=== PATIENT | male | born 1940 | race Caucasian/White ===

== ENCOUNTER 2020-06-02 09:27 | Outpatient (REF) | payer MEDICARE, SELFPAY ==
[2020-06-02 11:28] LABS: Glucose Urine UA NEG (NEG); Leukocyte Esterase Urine NEG (NEG); Nitrite Urine NEG (NEG); Urine Blood 3+ (NEG); Urine Ketones NEG (NEG); Urine Protein 1+ MG/DL (NEG-TRACE)
[2020-06-02 11:37] LABS: Appearance Urine CLEAR; Color Urine YELLOW
[2020-06-02 11:50] LABS: RBC Urine 30-49 /HPF (0); Squamous Epithelial Cell Urine TRACE /LPF
== END 2020-06-02 09:28 | disposition home or self-care (01) ==
LOC: HO.HMGCLDS 09:27
PROVIDERS: PCP Internal Medicine; Visit Provider Urology
DX: N28.89 Other specified disorders of kidney and ureter (principal)
CPT/HCPCS: 81001; 87086; 87088

== ENCOUNTER → 2020-06-28 12:53 | Outpatient (BNVA) | payer MEDICARE, SELFPAY | PROVIDERS: PCP Internal Medicine; Visit Provider Hospitalist | DX: Z01.811 Encounter for preprocedural respiratory examination (principal); J43.2 Centrilobular emphysema; R00.0 Tachycardia, unspecified; Z79.899 Other long term (current) drug therapy | CPT/HCPCS: 93005; 99212 ==

== ENCOUNTER → 2020-09-06 09:49 | Outpatient (BNVA) | payer MEDICARE, SELFPAY | PROVIDERS: PCP Internal Medicine; Visit Provider Hospitalist | DX: J43.2 Centrilobular emphysema (principal); J18.9 Pneumonia, unspecified organism; I82.401 Acute embolism and thrombosis of unspecified deep veins of right lower extremity | CPT/HCPCS: 99212 ==

== ENCOUNTER 2020-12-24 08:37 | Outpatient (REF) | payer MEDICARE, SELFPAY ==
--- NOTE | ~2020-12-24 | XR_ITS ---
EXAMINATION: XR CHEST CLINICAL INFORMATION: Pneumonia COMPARISON: Previous chest x-ray October 2019 TECHNIQUE: 2 views of the chest were obtained. FINDINGS: The cardiac and mediastinal contours are stable. The lungs are well-inflated. There is left apical pleural and parenchymal scarring that is stable. The lungs are otherwise clear. There is no pleural effusion or pneumothorax. There are degenerative changes of the spine. XR/XR chest 2V IMPRESSION: Well-inflated lungs. Stable left apical pleural and parenchymal scarring.
== END 2020-12-24 08:38 | disposition home or self-care (01) ==
LOC: HO.XRAY 08:37
PROVIDERS: PCP Internal Medicine; Visit Provider Hospitalist
DX: J18.9 Pneumonia, unspecified organism (principal); J43.2 Centrilobular emphysema; I82.401 Acute embolism and thrombosis of unspecified deep veins of right lower extremity; R91.8 Other nonspecific abnormal finding of lung field
CPT/HCPCS: 71046; 99212

== ENCOUNTER 2021-03-16 07:29 | Outpatient (REF) | payer MEDICARE, SELFPAY ==
--- NOTE | ~2021-03-16 | CT_ITS ---
EXAMINATION: CT CHEST WITHOUT CONTRAST CLINICAL INFORMATION: Abnormal lung findings. COMPARISON: Chest 12/24/2020 TECHNIQUE: Multidetector volumetric CT imaging of the chest was done. Axial MIP volume rendering provided. Sagittal and coronal reformatted images were obtained. This CT examination was performed using dose optimization techniques as appropriate, variously including the following: *Automated exposure control *Adjustment of mA and/or kV according to patient size (this includes techniques or standardized protocols for targeted exams where dose is matched to indication/reason for exam; i.e. 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 LUNGS: There are centrilobular emphysematous changes of both lungs with bilateral apical parenchymal scarring and bilateral apical pleural thickening. There are multiple scattered 1 mm calcified nodules in both upper lobes. There is a 7 mm nodule right minor fissure axial image 31/3. Focal nodular thickening is seen measuring 6 mm in the left major fissure. There is a 3 mm nodule left lung base axial image 60/4 and 5 mm nodule anterobasal segment left lower lobe axial image 52/4. MEDIASTINUM: The thyroid lobes are symmetrical and normal. The central trachea and the bronchi are widely patent. The heart size and great vessels are normal caliber. There is a 6 mm short axis nodule in the precarinal space. A few shotty lymph nodes in the aortic window are seen with the largest one measuring 1.2 cm on sagittal image 53/6. There are coronary artery calcifications present. PLEURA: There is no pleural effusion. No pleural mass or thickening. AXILLA: There are small shotty bilateral axillary lymph nodes. UPPER ABDOMEN: The visualized liver, spleen, pancreas, and bilateral adrenal glands are unremarkable. Partially exophytic cyst measuring 7.67 cm seen in the upper pole of left kidney. OSSEOUS STRUCTURES: No lytic or sclerotic process seen. There is mild ventral spondylosis mid dorsal spine. CT/CT chest wo con IMPRESSION: Emphysema with bilateral apical parenchymal scarring and bilateral apical pleural thickening. There are scattered calcified 1 mm nodules, likely granulomas. There are small pulmonary nodules in the left lower lobe with the largest nodule measuring 5 mm. Fleischner guidelines were followed.
== END 2021-03-16 07:30 | disposition home or self-care (01) ==
LOC: HO.CT 07:29
PROVIDERS: PCP Internal Medicine; Visit Provider Hospitalist
DX: R91.8 Other nonspecific abnormal finding of lung field (principal)
CPT/HCPCS: 71250

== ENCOUNTER → 2021-04-27 08:37 | Outpatient (BNVA) | payer MEDICARE, SELFPAY | PROVIDERS: PCP Internal Medicine; Visit Provider Hospitalist | DX: R91.8 Other nonspecific abnormal finding of lung field (principal); J43.2 Centrilobular emphysema; I82.401 Acute embolism and thrombosis of unspecified deep veins of right lower extremity | CPT/HCPCS: 99212 ==

== ENCOUNTER 2022-02-16 09:40 | Outpatient (REF) | payer MEDICARE, SELFPAY ==
--- NOTE | ~2022-02-16 | CT_ITS ---
EXAMINATION: CT CHEST WITHOUT CONTRAST CLINICAL INFORMATION: Follow-up pulmonary nodules COMPARISON: Previous chest CT March 2021 TECHNIQUE: Multidetector volumetric CT imaging of the chest was done. Axial MIP volume rendering provided. Sagittal and coronal reformatted images were obtained. This CT examination was performed using dose optimization techniques as appropriate, variously including the following: *Automated exposure control *Adjustment of mA and/or kV according to patient size (this includes techniques or standardized protocols for targeted exams where dose is matched to indication/reason for exam; i.e. 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 There is evidence of severe emphysema. There are multiple small pulmonary nodules are stable. Largest pulmonary nodule measures 4 mm in the left lower lobe axial image 63 series 7 no endobronchial or endotracheal lesion. MEDIASTINUM: Normal heart size. Severe coronary artery calcification. Heavily calcified but normal caliber thoracic aorta. Shotty stable mediastinal lymphadenopathy. CORONARY ARTERY CALCIFICATION: Severe PLEURA: No pleural effusion. AXILLA: Bilateral gynecomastia, right greater than left. This is similar to previous exam. No enlarged axillary lymph nodes. UPPER ABDOMEN: The right kidney has been removed. 2 cm cyst in the left kidney. No imaging follow-up. Atherosclerotic abdominal aorta. OSSEOUS STRUCTURES: Degenerative changes of the spine. Old healed left rib fracture. CT/CT chest wo IV con IMPRESSION: Severe emphysema. Stable small pulmonary nodules and biapical pleural and parenchymal scarring and calcification.. Severe coronary artery calcification. Fleischner guidelines were followed.
== END 2022-02-16 09:41 | disposition home or self-care (01) ==
LOC: HO.CT 09:40
PROVIDERS: Visit Provider Hospitalist
DX: R91.8 Other nonspecific abnormal finding of lung field (principal)
CPT/HCPCS: 71250

== ENCOUNTER 2022-03-03 11:34 | Emergency (ER) | payer MEDICARE, SELFPAY ==
--- NOTE | ~2022-03-03 | CT_ITS ---
EXAMINATION: CT HEAD WITHOUT CONTRAST CLINICAL INFORMATION: Head injury. Pain COMPARISON: None TECHNIQUE: Contiguous axial imaging was performed from the skull base to vertex without intravenous administration of contrast. This CT examination was performed using dose optimization techniques as appropriate, variously including the following: *Automated exposure control *Adjustment of mA and/or kV according to patient size (this includes techniques or standardized protocols for targeted exams where dose is matched to indication/reason for exam; i.e. extremities or head) *Use of iterative reconstruction technique DLP: 640 mGy-cm FINDINGS: Prominence of sulci and ventricles. Deep white matter gliosis all compatible with involutional change. No intra or extra-axial fluid collection or hemorrhage, mass or mass effect. Calvarium intact. There is mild mucoperiosteal thickening within the ethmoid sinuses. CT/CT head/brain wo IV con IMPRESSION: No acute intracranial pathology.
--- NOTE | 2022-03-03 11:43 | ED_ITS ---
HPI - General Adult General Chief complaint: Wound/Laceration <CATARINO Salvador - Last Filed: 03/03/22 18:25> Stated complaint: Lac Above R Eye Injury 03/03/22 <CATARINO Salvador - Last Filed: 03/03/22 18:25> Time Seen by Provider: 03/03/22 11:57 <CATARINO Salvador - Last Filed: 03/03/22 18:25> Source: patient <CATARINO Salvador - Last Filed: 03/03/22 18:25> Mode of arrival: ambulatory <CATARINO Salvador - Last Filed: 03/03/22 18:25> Limitations: no limitations <CATARINO Salvador - Last Filed: 03/03/22 18:25> History of Present Illness HPI narrative: 81-year-old male presenting to the ER with complaints of a laceration to the right eyebrow that occurred prior to arrival after he was hunting prior to arrival. He reports that he fired his gone and the scope hit him above his eye causing a laceration. He denies a fall to the ground or any other injuries complaints or concerns. Reports that his tetanus was updated year ago when he sustained another laceration on a hunting accident. He denies any other symptoms complaints or concerns at this time. <CATARINO Woods - Last Filed: 03/03/22 14:22> MD complaint: Laceration to right eyebrow <CATARINO Woods - Last Filed: 03/03/22 14:22> Onset (ago): minute(s) (Prior to arrival) <CATARINO Woods - Last Filed: 03/03/22 1 4:22> Location: face <CATARINO Woods - Last Filed: 03/03/22 14:22> Radiation: non-radiation <CATARINO Woods - Last Filed: 03/03/22 14:22> Severity: moderate <CATARINO Woods Last Filed: 03/03/22 14:22> Quality: aching <CATARINO Woods - Last Filed: 03/03/22 14:22> Pain Consistency: constant <CATARINO Woods Last Filed: 03/03/22 14:22> Relieving factors: none <CATARINO Woods - Last Filed: 03/03/22 14:22> Exacerbating factors: other (Palpation) <CATARINO Woods - Last Filed: 03/03/22 14:22> Associated symptoms: denies other symptoms <CATARINO Woods - Last Filed: 03/03/22 14:22> Treatments prior to arrival: other (Band-Aid) <CATARINO Woods - Last Filed: 03/03/22 14:22> Related Data Home medications: Home Medications Medication Instructions Recorded Confirmed albuterol sulfate 90 mcg/actuation 2 puff inhalation Q6H PRN 06/28/20 09/06/20 aerosol inhaler (ProAir HFA) simvastatin 40 mg tablet 40 mg PO BEDTIME 06/28/20 09/06/20 vitamin B complex (B 1 tab PO DAILY 06/28/20 09/06/20 Complex-Vitamin B12 tablet) budesonide 0.25 mg/2 mL suspension 0.25 mg inhalation BID 09/06/20 09/06/20 for nebulization cilostazol 100 mg tablet 100 mg PO BID 09/06/20 09/06/20 coenzyme Q10 100 mg capsule 100 mg PO DAILY 09/06/20 09/06/20 ipratropium 0.5 mg-albuterol 3 mg 3 ml inhalation Q6H PRN 09/06/20 09/06/20 (2.5 mg base)/3 mL nebulization soln milk thistle 150 mg capsule 150 mg PO BID 09/06/20 09/06/20 multivitamin 1 tab PO DAILY 09/06/20 09/06/20 omega-3 fatty acids 1,000 mg 1,000 mg PO DAILY 09/06/20 09/06/20 capsule (Fish Oil Concentrate) loratadine 10 mg tablet (Allergy 10 mg PO DAILY 04/27/21 Relief (loratadine)) Previous Rx's Medication Instructions Recorded tiotropium 2.5 mcg-olodaterol 2.5 2 puff inhalation DAILY 30 days #4 09/06/20 mcg/actuation mist for inhalation grams (Stiolto Respimat) cephalexin 500 mg capsule 500 mg PO BID 7 days #14 caps 03/03/22 <CATARINO Salvador - Last Filed: 03/03/22 18:25> Allergies/adverse reactions: Allergies Allergy/AdvReac Type Severity Reaction Status Date / Time No Known Allergies Allergy Verified 04/27/21 09:17 [No Known Allergies*] <CATARINO Salvador - Last Filed: 03/03/22 18:25> Review of Systems Review of Systems: Constitutional : No Fever, No Chills, Cardiovascular : No Chest Pain, No SOB Respiratory : No Dyspnea Gastrointestinal : No abdominal pain Musculoskeletal : No Joint Swelling Skin : positive skin laceration, No Foreign bodies, No rash, No surrounding erythema Neuro : No Weakness, No Numbness/tingling Psych : No SI/HI/thoughts of self injury <CATARINO Woods - Last Filed: 03/03/22 14:22> Yes all other systems are reviewed and are negative <CATARINO Woods - Last Filed: 03/03/22 14:22> [facility] Past Medical History Attestation statement: The following information was validated with the patient. <CATARINO Woods - Last Filed: 03/03/22 14:22> Source: old records reviewed and nursing notes reviewed <CATARINO Woods - Last Filed: 03/03/22 14:22> Medical History: Medical History COPD (chronic obstructive pulmonary disease) DVT (deep venous thrombosis) Pneumonia Pre-op chest exam Pulmonary nodules <CATARINO Salvador - Last Filed: 03/03/22 18:25> Social History Social History: Social History Patient Tobacco Use Status: Current everyday Tobacco user Tobacco use type: Cigarette Cigarette Packs Per Day: 1 Cigarettes Per Day: 3 Years Smoked: 22 years old Advance Directives: Yes Advance Directives Information Provided: Yes Advance Directives on File: No <CATARINO Salvador - Last Filed: 03/03/22 18:25> Physical Exam ED Vital Signs: Vital Signs - 24 hr 03/03/22 11:44 Temperature 97.9 F Pulse Rate 101 H Respiratory Rate 18 Blood Pressure 149/94 H Pulse Oximetry 97 Oxygen Delivery Method Room Air BMI result Body Mass Index 19.5 <CATARINO Salvador - Last Filed: 03/03/22 18:25> Vital Signs - 24 hr 03/03/22 11:44 Temperature 97.9 F Pulse Rate 101 H Respiratory Rate 18 Blood Pressure 149/94 H Pulse Oximetry 97 Oxygen Delivery Method Room Air BMI result Body Mass Index 19.5 vital signs have been reviewed as normal and appeared to be correct. Blood pressure 149/94 Heart rate 101 Respiration rate normal. Temperature normal. Oxygen saturation normal. <CATARINO Woods - Last Filed: 03/03/22 14:22> Appearance: Alert. Oriented X3. No acute distress. Head: Normal external exam. Normocephalic. Atraumatic. No Campbell signs noted. No raccoon eyes noted Eyes: To right eyebrow patient has a 2 cm intermediate laceration. No foreign bodies. No bony tenderness noted. No facial or scalp depressions noted. No Campbell signs or raccoon eyes noted. PERRLA. EOMI. Conjunctiva and sclera normal. Eyelids normal. ENT: EAC normal. TM's Normal. No septal hematoma noted. No hemotympanum noted. Pharynx normal. Uvula midline. Moist mucous membranes. No lesions/ulcerations or masses noted on the tongue. Normal voice. No trismus noted. No drooling noted. No muffled voice noted. Neck: Normal inspection. Neck supple. FROM. No adenopathy. Thyroid Normal. No tracheal deviation noted. No crepitus is noted. No meningeal signs. No neck mass noted. No signs of trauma noted. CVS: Normal heart rate and rhythm. Respiratory: No respiratory distress. Painless inspiration. Back: No CVA tenderness. Full range of motion noted. Nontender. No signs of trauma. Skin: Skin warm and dry. Normal skin color. Normal skin turgor. No rashes/lesions/lacerations noted. Extremities: Extremities exhibit normal range of motion and nontender. Neuro: Oriented X 3. No motor deficit. No sensory deficit. Reflexes normal. Normal steady gait. No focal neuro deficits noted. CN's II-XII intact bilaterally? <CATARINO Woods - Last Filed: 03/03/22 14:22> Course Course Course Narrative: RME performed by Mona Conrad PA-C. Patient is an 81 year old male presenting to the department after a hunting accident. Patient states that he fired his gun and the scope hit him above his eye, causing a laceration. Patient has a laceration above the right eyebrow that will need suture repair. CT ordered given patients age >65 and traumatic head injury. Patient placed back in waiting room pending results and bed availability. Patient is up to date on his tetanus vaccination. <CATARINO Salvador - Last Filed: 03/03/22 18:25> Reevaluation(s) Reevaluation #1: Patient now status post laceration repair with 8 simple interrupted sutures. Patient tolerated procedure well. No complications. Tetanus is already updated therefore does not need to be given today. CT scan of brain without contrast revealed chronic changes no acute processes noted. On exam patient is alert and oriented x3. No neuro deficits noted. Moving all extremities. Normal steady gait. Neck is soft nontender with full range of motion no meningeal sign noted. No septal hematoma noted. No hemotympanum noted. No raccoon eyes or Campbell sign noted at this time. Will DC home with symptomatic treatment instructions return to 5-7 days for suture removal and to return any sooner if any new or worsening symptoms. Patient understands agrees with this plan. <CATARINO Woods - Last Filed: 03/03/22 14:22> Medications Administered Discontinued Medications Generic Name Dose Route Start Last Admin Trade Name Freq PRN Reason Stop Dose Admin Lidocaine HCl 1 appl 03/03/22 12:12 03/03/22 12:23 Lidocaine 4 % Cream Kit TOPICAL 03/03/22 12:13 1 appl ONCE ONE Administration Protocol Lidocaine HCl 2 ml 03/03/22 12:12 03/03/22 12:23 Lidocaine Hcl 1 % Mpf 2 Ml Vial INFILTRATI 03/03/22 12:13 2 ml ONCE ONE Administration Lidocaine HCl 2 ml 03/03/22 12:12 03/03/22 12:23 Lidocaine Hcl 1 % Mpf 2 Ml Vial INFILTRATI 03/03/22 12:13 2 ml ONCE ONE Administration Lidocaine HCl 2 ml 03/03/22 12:13 03/03/22 12:23 Lidocaine Hcl 1 % Mpf 2 Ml Vial INFILTRATI 03/03/22 12:14 2 ml ONCE ONE Administration <CATARINO Salvador - Last Filed: 03/03/22 18:25> Medications Administered Discontinued Medications Generic Name Dose Route Start Last Admin Trade Name Freq PRN Reason Stop Dose Admin Lidocaine HCl 1 appl 03/03/22 12:12 03/03/22 12:23 Lidocaine 4 % Cream Kit TOPICAL 03/03/22 12:13 1 appl ONCE ONE Administration Protocol Lidocaine HCl 2 ml 03/03/22 12:12 03/03/22 12:23 Lidocaine Hcl 1 % Mpf 2 Ml Vial INFILTRATI 03/03/22 12:13 2 ml ONCE ONE Administration Lidocaine HCl 2 ml 03/03/22 12:12 03/03/22 12:23 Lidocaine Hcl 1 % Mpf 2 Ml Vial INFILTRATI 03/03/22 12:13 2 ml ONCE ONE Administration Lidocaine HCl 2 ml 03/03/22 12:13 03/03/22 12:23 Lidocaine Hcl 1 % Mpf 2 Ml Vial INFILTRATI 03/03/22 12:14 2 ml ONCE ONE Administration <CATARINO Woods - Last Filed: 03/03/22 14:22> Procedures Laceration Laceration 1: Site: face <CATARINO Woods - Last Filed: 03/03/22 14:22> Side (If applicable): right <CATARINO Woods - Last Filed: 03/03/22 14:22> Size (cm): 4 <CATARINO Woods - Last Filed: 03/03/22 14:22> Description: linear <CATARINO Woods - Last Filed: 03/03/22 14:22> Depth: simple, single layer <CATARINO Woods - Last Filed: 03/03/22 14:22> Local Anesthetic: lidocaine 1% <CATARINO Woods - Last Filed: 03/03/22 14:22> Amount of anesthesia used (mL): 6 <CATARINO Woods - Last Filed: 03/03/22 14:22> Pre-repair: deep structures intact <CATARINO Woods - Last Filed: 03/03/22 14:22> Skin layer closed with: nylon <CATARINO Woods - Last Filed: 03/03/22 14:22> Size (cm): 6-0 <CATARINO Woods - Last Filed: 03/03/22 14:22> Number of sutures: 8 <CATARINO Woods - Last Filed: 03/03/22 14:22> Technique: simple, interrupted <CATARINO Woods - Last Filed: 03/03/22 14:22> Medical Decision Making Medical Records Medical records reviewed: Yes I reviewed the patient's medical records. <CATARINO Woods - Last Filed: 03/03/22 14:22> Imaging Data CT scan of brain without contrast: Attestation: I personally reviewed and interpreted this imaging study as follows: <CATARINO Woods - Last Filed: 03/03/22 14:22> Radiologist's impression: FINDINGS: Prominence of sulci and ventricles. Deep white matter gliosis all compatible with involutional change. No intra or extra-axial fluid collection or hemorrhage, mass or mass effect. Calvarium intact. There is mild mucoperiosteal thickening within the ethmoid sinuses. ? CT/CT head/brain wo IV con IMPRESSION: No acute intracranial pathology. <CATARINO Woods - Last Filed: 03/03/22 14:22> Discharge Plan Discharge Clinical Impression: Laceration <CATARINO Salvador - Last Filed: 03/03/22 18:25> Patient Disposition: Home, Self-Care <CATARINO Salvador - Last Filed: 03/03/22 18:25> Instructions: Facial Laceration (ED) <CATARINO Salvador - Last Filed: 03/03/22 18:25> Prescriptions: New cephalexin 500 mg capsule 500 mg PO BID 7 Days Qty: 14 0RF No Action simvastatin 40 mg tablet 40 mg PO BEDTIME vitamin B complex [B Complex-Vitamin B12] Tablet 1 tab PO DAILY albuterol sulfate [ProAir HFA] 90 mcg/actuation HFA aerosol inhaler 2 puff inhalation Q6H PRN budesonide 0.25 mg/2 mL suspension for nebulization 0.25 mg inhalation BID ipratropium-albuterol 0.5 mg-3 mg(2.5 mg base)/3 mL solution for nebulization 3 ml inhalation Q6H PRN multivitamin Tablet 1 tab PO DAILY cilostazol 100 mg tablet 100 mg PO BID coenzyme Q10 100 mg capsule 100 mg PO DAILY omega-3 fatty acids [Fish Oil Concentrate] 1,000 mg capsule 1,000 mg PO DAILY milk thistle 150 mg capsule 150 mg PO BID Rx Instructions: give with meal/snack Stiolto Respimat 2.5-2.5 mcg/actuation mist 2 puff inhalation DAILY 30 Days Qty: 4 11RF loratadine [Allergy Relief (loratadine)] 10 mg tablet 10 mg PO DAILY <CATARINO Salvador - Last Filed: 03/03/22 18:25> Referrals: Yajaira Ventura PA [Emergency Midlevel Provider] - 10 days (for suture removal) <CATARINO Salvador - Last Filed: 03/03/22 18:25> Interventions: ED Discharge Assessment Last Done: 03/03/22 13:43 <CATARINO Salvador - Last Filed: 03/03/22 18:25> Discharge Date/Time: 03/03/22 13:43 <CATARINO Salvador - Last Filed: 03/03/22 18:25>
[2022-03-03 11:44] VITALS: BP 149/94; PULSE 101; RESP 18; TEMP 36.6; O2SAT 97; BMI 19.5
[2022-03-03] MEDS: Lidocaine 4 % Cream KIT 1 APPL TOPICAL (12:23)
[2022-03-03] MEDS: Lidocaine HCl 1 % MPF 2 ML VIAL INFILTRATI ×3 (12:23)
== END 2022-03-03 13:43 | disposition home or self-care (01) ==
PROVIDERS: Emergency Provider Student in an Organized Health Care Education/Training Program; PCP Internal Medicine
DX: S01.111A Laceration without foreign body of right eyelid and periocular area, initial encounter (principal); R51.9 Headache, unspecified; Y29.XXXA Contact with blunt object, undetermined intent, initial encounter; Y93.9 Activity, unspecified; Y92.821 Forest as the place of occurrence of the external cause; Y99.9 Unspecified external cause status; Z79.899 Other long term (current) drug therapy; F17.210 Nicotine dependence, cigarettes, uncomplicated; Z71.6 Tobacco abuse counseling
CPT/HCPCS: 12052; 70450; 99282; 99284

== ENCOUNTER 2023-01-04 13:57 | Outpatient (AMB) | payer MEDICARE, SELFPAY ==
[2023-01-04 14:12] VITALS: BP 110/60; PULSE 90; O2SAT 95; BMI 18.8
--- NOTE | 2023-01-04 14:12 | MHC.OFFVIS ---
Intake Vital Signs 01/04/23 14:12 Height 5 ft 3 in Weight 106 lb BMI 18.8 BP 110/60 Blood Pressure Location Rt brachial Position Sitting Pulse 90 Pulse Source Pulse Oximeter Pulse Oximetry (%) 95 Oxygen Delivery Method Room Air Intake Visit Reasons: Emphysema Standards Analyst Required: No Allergies No Known Allergies [No Known Allergies*] Allergy (Verified 01/04/23 14:15) HPI HPI Comments History of Present Illness Details The patient is a 82-year-old gentleman known COPD with chronic respiratory failure on oxygen. He does get his medications through the [place] including this the although in the Flovent inhaler. He also has a rescue inhaler that has not had to use. The oxygen therapy has been affecting beneficial. He does have a conserving device that he uses during the day and then the concentrator at nighttime. At this point the patient will have [employer] switch out his concentrator and I did fill out the paperwork in order to do so. 06/28/2020 the patient is here for pulmonary follow-up visit. 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 Currently being evaluated at [facility]. It appears that he is going to need surgery and will be extensive. In the meantime he is doing well from a respiratory status. He has not had any COPD exacerbations. He continues to use the St[place] that he [place] through the [place] pharmacy. This appears to be affecting beneficial. He rarely uses the rescue inhaler. We did review his last pulmonary function studies that he had demonstrating a mild obstructive ventilatory defect consistent with COPD but, a disproportional diffusion impairment consistent with his emphysema. The patient did go for 6 minutes walk test during the office visit. He maintain a pulse ox above 96% which is reassuring Eli Hernán score was high as 4-10 after ambulating for a total of 400 m. The major issue with him was the heart rate was in the 130s. Therefore had him undergo a EKG which demonstrated sinus tachycardia without any ischemic changes. The heart rate did decrease down to 115 at rest when he was getting the EKG. He is scheduled to follow up with Cardiology for preoperative evaluation. At least from a pulmonary standpoint he appears to be medically optimized with the use the Stiolto. He does not require oxygen at this time. However, we need to be evaluated by Cardiology for preop evaluation specially with tachycardia. I did give him a copy of the EKG for him to review with Cardiology during his appointment. Based on the patient's or decreased diffusing capacity and the extent of his surgery there is an increased risk for perioperative pulmonary complications which include; atelectasis, hypoxia, pneumonia and prolonged mechanical ventilation. 01/04/2023 the patient is here for pulmonary follow-up visit. Overall the patient has been doing well. He is trying to maintain his weight. He is trying to stay active working around the house. Her he continues with his current respiratory regimen. He has been very compliant with this therapy. He did have a recent CT scan of the chest which was personally by me and the patient in the office. The patient does have some emphysema in appears to have small subcentimeter pulmonary nodules. At this point have not changed from his last CT scan. Will plan to follow-up in a year's time, which it will be in the spring. Once the patient shows stability after couple years we will not require serial CT chest. [facility] Medical History COPD (chronic obstructive pulmonary disease) DVT (deep venous thrombosis) Pneumonia Pre-op chest exam Pulmonary nodules Social History Patient Tobacco Use Status: Current everyday Tobacco user Tobacco use type: Cigarette Cigarette Packs Per Day: 1 Cigarettes Per Day: 3 Years Smoked: 22 years old Review of Systems Const Denies night sweats and Denies weight loss ENT Denies change in voice, Denies lip swelling, Denies mouth pain, Reports nasal congestion, Reports nasal discharge and Denies tongue swelling Card Denies chest pain Resp Reports cough GI Denies abdominal pain Musc Denies no additional complaints Neuro Denies Neuro-related abnormal movements Psych Denies no additional complaints Abel/Lymph Denies easy bleeding and Denies lymphadenopathy Aller/Immun Denies lip swelling and Denies tongue swelling Physical Exam Vital Signs: Last Vital Signs Pulse 90 01/04/23 14:12 BP 110/60 01/04/23 14:12 Pulse Ox 95 01/04/23 14:12 Oxygen Delivery Method Room Air 01/04/23 14:12 BMI result Body Mass Index 18.8 Const General: alert Neck Neck: Yes normal visual inspection, Yes full ROM and Yes no lymphadenopathy Chest Chest palpation & inspection: normal inspection of the chest Resp Auscultation: diminished lung sounds Cardio Rate: tachycardic Rhythm: regular rhythm Heart sounds: S1 normal heart sound present and S2 normal heart sound present GI Palpation (GI): Soft to palpation and nontender Auscultation: normal bowel sounds Skin General skin exam: rashes and/or lesions noted Assessment & Plan Assessment & Plan (1) COPD (chronic obstructive pulmonary disease): Code(s): J44.9 - Chronic obstructive pulmonary disease, unspecified Qualifiers: COPD type: emphysema Emphysema type: centrilobular Qualified Code(s): J43.2 - Centrilobular emphysema (2) Pulmonary nodules: Code(s): R91.8 - Other nonspecific abnormal finding of lung field Plan Duoneb as needed continue Stiolto [address] scan of the chest in 6 months follow-up in 12 months Orders: Orders CT chest wo IV con 6 Months R91.8 - Other nonspecific abnormal finding of lung field Medications: New albuterol sulfate 90 mcg/actuation (ProAir HFA) 2 puffs inhalation Q6H PRN 8.5 grams 11RF shortness of breath or wheezing Refilled tiotropium-olodaterol 2.5-2.5 mcg/actuation (Stiolto Respimat) 2 puffs inhalation DAILY 30 days 4 grams 11RF Coding Level of Care Code Est Pt Level 4 (99149) Diagnoses Centrilobular emphysema J43.2 COPD type: emphysema Emphysema type: centrilobular Pulmonary nodules R91.8 Time Spent (min) 16
== END 2023-01-04 14:48 | disposition home or self-care (01) ==
PROVIDERS: PCP Internal Medicine; Visit Provider Hospitalist
DX: J43.2 Centrilobular emphysema (principal); R91.8 Other nonspecific abnormal finding of lung field
CPT/HCPCS: 99214

== ENCOUNTER → 2023-01-04 13:57 | Outpatient (BNVA) | payer MEDICARE, SELFPAY | PROVIDERS: PCP Internal Medicine; Visit Provider Hospitalist | DX: J43.2 Centrilobular emphysema (principal); R91.8 Other nonspecific abnormal finding of lung field | CPT/HCPCS: 99212 ==

== ENCOUNTER 2023-07-06 12:35 | Outpatient (REF) | payer MEDICARE, SELFPAY ==
--- NOTE | ~2023-07-06 | CT_ITS ---
EXAMINATION: CT CHEST WITHOUT CONTRAST CLINICAL INFORMATION: Pulmonary nodule. COMPARISON: CT chest 02/16/2022: There are multiple small pulmonary nodules are stable. Largest pulmonary nodule measures 4 mm in the left lower lobe axial image 63 series 7. TECHNIQUE: Multidetector volumetric CT imaging of the chest was done. Axial MIP volume rendering provided. Sagittal and coronal reformatted images were obtained. This CT examination was performed using dose optimization techniques as appropriate, variously including the following: *Automated exposure control. *Adjustment of mA and/or kV according to patient size (this includes techniques or standardized protocols for targeted exams where dose is matched to indication/reason for exam; i.e. extremities or head). *Use of iterative reconstruction technique. DLP: 84.87 mGy-cm FINDINGS: LUNGS: Extensive biapical pleural-parenchymal scarring is present with marked calcification and thick band-like atelectasis/scars, unchanged from prior. Severe emphysematous changes are present in the lungs most marked in the upper lobes. There is cylindrical bronchiectasis, unchanged from prior. Some small pulmonary nodules are unchanged, the largest measuring 4 mm. There is a right middle lobe 4 mm nodule (5:434 compare prior 7:414) and a left lower lobe 4 mm nodule (5:506 compare prior 7:516). No increasing new or worrisome pulmonary nodule is seen. MEDIASTINUM: Heart size is normal. No aortic aneurysm. Some small mediastinal lymph nodes are present, the largest a 6 mm precarinal lymph node, unchanged from prior. There is no mediastinal or hilar lymphadenopathy. CORONARY ARTERY CALCIFICATION: Extensive. PLEURA: There is no pleural effusion. No pleural mass or thickening. AXILLA: No lymphadenopathy. UPPER ABDOMEN: The right kidney is not seen. A benign cyst is seen at the upper pole of the left kidney for which no additional imaging or follow-up is needed. OSSEOUS STRUCTURES: Unremarkable. CT/CT chest wo IV con IMPRESSION: 1. Severe emphysema with bronchiectasis. 2. Stable small pulmonary nodules. 3. Other incidental findings as described above. Fleischner guidelines were followed.
== END 2023-07-06 12:36 | disposition home or self-care (01) ==
LOC: HO.CT 12:35
PROVIDERS: PCP Internal Medicine; Visit Provider Hospitalist
DX: R91.8 Other nonspecific abnormal finding of lung field (principal)
CPT/HCPCS: 71250

== ENCOUNTER 2023-08-02 14:38 | Outpatient (AMB) | payer MEDICARE, SELFPAY ==
--- NOTE | 2023-08-02 14:41 | AM.OFFWIN_ITS ---
Intake Vital Signs 3 08/02/23 14:42 Height 5 ft 3 in Weight 106 lb BMI 18.8 BP 112/62 Blood Pressure Location Rt brachial Position Sitting Pulse 99 Pulse Source Pulse Oximeter Temp 97.9 F Temp Source Temporal Artery Scan Pulse Oximetry (%) 96 Intake Visit Reasons: EP tick bite LT arm Intake Note: pt is here for tick bite on left arm Patient Tobacco Use Status: Current everyday Tobacco user Allergies No Known Allergies [No Known Allergies*] Allergy (Verified 08/02/23 14:42) Do you need a note to return to daycare/school/sports/work: No HPI HPI Comments 2 History of Present Illness0 Details 82 y/o female patient who presents to [facility] in clinic with c/o Tick bite of left upper extremity. He went fishing in a wooded area, and noticed a small Tick on his left forearm. He did remove all of it. Denies fevers, chills, nausea or vomiting. Mild tenderness and redness at the area. [facility] Medical History COPD (chronic obstructive pulmonary disease) DVT (deep venous thrombosis) Pneumonia Pre-op chest exam Pulmonary nodules Social History Patient Tobacco Use Status: Current everyday Tobacco user Tobacco use type: Cigarette Cigarette Packs Per Day: 1 Cigarettes Per Day: 3 Years Smoked: 22 years old Review of Systems Const All systems reviewed & are unremarkable except as noted in HPI and below Physical Exam Vital Signs: Last Vital Signs Temp 97.9 F 08/02/23 14:42 Pulse 99 08/02/23 14:42 BP 112/62 08/02/23 14:42 Pulse Ox 96 08/02/23 14:42 BMI result Body Mass Index 18.8 Const General: comfortable and no acute distress Nutritional Appearance: underweight Orientation/consciousness: patient oriented x3 Skin Other: small reddish and circular sore/spot, with crusting center left forearm. Neuro General: patient oriented x3 Extrem General: Yes full ROM and Yes capillary refill normal Right upper extremity: full ROM Left upper extremity: full ROM Elbow/forearm/wrist images: 2 1. small reddish and circular sore/spot, with crusting center left forearm. Assessment & Plan Assessment & Plan (1) Tick bite of left upper arm: Code(s): S40.862A - Insect bite (nonvenomous) of left upper arm, initial encounter; W57.XXXA - Bitten or stung by nonvenomous insect and other nonvenomous arthropods, initial encounter Qualifiers: Encounter type: initial encounter Qualified Code(s): S40.862A - Insect bite (nonvenomous) of left upper arm, initial encounter; W57.XXXA - Bitten or stung by nonvenomous insect and other nonvenomous arthropods, initial encounter Plan: - May take Acetaminophen for relief - Report any flu-like symptoms, joint pain and weakness. Medications: New 2 doxycycline monohydrate 200 mg (2 x 100 mg) PO ONCE 2 caps 0RF S40.862A - Insect bite (nonvenomous) of left upper arm, initial encounter, W57.XXXA - Bitten or stung by nonvenomous insect and other nonvenomous arthropods, initial encounter Coding Level of Care Code Est Pt Level 3 (71994) Diagnoses Tick bite of left upper arm, initial encounter S40.862A; W57.XXXA Encounter type: initial encounter Time Spent (min) 15
[2023-08-02 14:42] VITALS: BP 112/62; PULSE 99; TEMP 36.6; O2SAT 96; BMI 18.8
== END 2023-08-02 16:31 | disposition home or self-care (01) ==
PROVIDERS: PCP Internal Medicine; Visit Provider Nurse Practitioner Family
DX: S40.862A Insect bite (nonvenomous) of left upper arm, initial encounter (principal); W57.XXXA Bitten or stung by nonvenomous insect and other nonvenomous arthropods, initial encounter
CPT/HCPCS: 99213

== ENCOUNTER 2023-12-31 09:54 | Outpatient (AMB) | payer MEDICARE, SELFPAY ==
--- NOTE | 2023-12-31 10:00 | MHC.OFFVIS ---
Vital Signs 12/31/23 10:02 Height 5 ft 3 in Weight 101 lb 6.602 oz BMI 18.0 BP 118/60 Blood Pressure Location Lt brachial Position Sitting Pulse 89 Pulse Source Pulse Oximeter Pulse Oximetry (%) 96 Oxygen Delivery Method Room Air Intake Visit Reasons: Emphysema Senior Credit Officer Required: No Allergies No Known Allergies [No Known Allergies*] Allergy (Verified 12/31/23 10:01) HPI Comments Details: The patient is a 82-year-old gentleman known COPD with chronic respiratory failure on oxygen. He does get his medications through the [place] including this the although in the Flovent inhaler. He also has a rescue inhaler that has not had to use. The oxygen therapy has been affecting beneficial. He does have a conserving device that he uses during the day and then the concentrator at nighttime. At this point the patient will have [employer] switch out his concentrator and I did fill out the paperwork in order to do so. 06/28/2020 the patient is here for pulmonary follow-up visit. 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 Currently being evaluated at [facility]. It appears that he is going to need surgery and will be extensive. In the meantime he is doing well from a respiratory status. He has not had any COPD exacerbations. He continues to use the Stiolto that he gets through the [place] pharmacy. This appears to be affecting beneficial. He rarely uses the rescue inhaler. We did review his last pulmonary function studies that he had demonstrating a mild obstructive ventilatory defect consistent with COPD but, a disproportional diffusion impairment consistent with his emphysema. The patient did go for 6 minutes walk test during the office visit. He maintain a pulse ox above 96% which is reassuring Eli Hernán score was high as 4-10 after ambulating for a total of 400 m. The major issue with him was the heart rate was in the 130s. Therefore had him undergo a EKG which demonstrated sinus tachycardia without any ischemic changes. The heart rate did decrease down to 115 at rest when he was getting the EKG. He is scheduled to follow up with Cardiology for preoperative evaluation. At least from a pulmonary standpoint he appears to be medically optimized with the use the Stiolto. He does not require oxygen at this time. However, we need to be evaluated by Cardiology for preop evaluation specially with tachycardia. I did give him a copy of the EKG for him to review with Cardiology during his appointment. Based on the patient's or decreased diffusing capacity and the extent of his surgery there is an increased risk for perioperative pulmonary complications which include; atelectasis, hypoxia, pneumonia and prolonged mechanical ventilation. 01/04/2023 the patient is here for pulmonary follow-up visit. Overall the patient has been doing well. He is trying to maintain his weight. He is trying to stay active working around the house. Her he continues with his current respiratory regimen. He has been very compliant with this therapy. He did have a recent CT scan of the chest which was personally by me and the patient in the office. The patient does have some emphysema in appears to have small subcentimeter pulmonary nodules. At this point have not changed from his last CT scan. Will plan to follow-up in a year's time, which it will be in the spring. Once the patient shows stability after couple years we will not require serial CT chest. 12/31/2023 the patient is here for a pulmonary follow-up visit. Overall he is doing well. He is staying active. He is still going hunting. He has been using the Stiolto daily. He has not had to use his rescue inhaler. We did review his last CT scan of the chest that was done back in 07/21/2023 demonstrating stable pulmonary nodules. They have been stable for more than 2 years so therefore no additional imaging studies warranted. Therefore, follow-up in a year's time but will have him get a chest x-ray during the next visit in a year. If he has any issues prior to that he will call for an earlier assessment. [facility] Medical History COPD (chronic obstructive pulmonary disease) DVT (deep venous thrombosis) Pneumonia Pre-op chest exam Pulmonary nodules Social History Patient Tobacco Use Status: Current everyday Tobacco user Tobacco use type: Cigarette Cigarette Packs Per Day: 1 Cigarettes Per Day: 3 Years Smoked: 22 years old Review of Systems Const Denies night sweats and Denies weight loss ENT Denies change in voice, Denies lip swelling, Denies mouth pain, Reports nasal congestion, Reports nasal discharge and Denies tongue swelling Card Denies chest pain Resp Reports cough GI Denies abdominal pain Musc Denies no additional complaints Neuro Denies Neuro-related abnormal movements Psych Denies no additional complaints Abel/Lymph Denies easy bleeding and Denies lymphadenopathy Aller/Immun Denies lip swelling and Denies tongue swelling Physical Exam Vital Signs: Last Vital Signs Pulse 89 12/31/23 10:02 BP 118/60 12/31/23 10:02 Pulse Ox 96 12/31/23 10:02 Oxygen Delivery Method Room Air 12/31/23 10:02 BMI result Body Mass Index 18.0 Const General: alert Neck Neck: Yes normal visual inspection, Yes full ROM and Yes no lymphadenopathy Chest Chest palpation & inspection: normal inspection of the chest Resp Auscultation: diminished lung sounds Cardio Rate: tachycardic Rhythm: regular rhythm Heart sounds: S1 normal heart sound present and S2 normal heart sound present GI Palpation (GI): Soft to palpation and nontender Auscultation: normal bowel sounds Skin General skin exam: rashes and/or lesions noted Assessment & Plan Assessment & Plan (1) COPD (chronic obstructive pulmonary disease): Code(s): J44.9 - Chronic obstructive pulmonary disease, unspecified Category: Medical Qualifiers: COPD type: emphysema Emphysema type: centrilobular Qualified Code(s): J43.2 - Centrilobular emphysema (2) Pulmonary nodules: Code(s): R91.8 - Other nonspecific abnormal finding of lung field Category: Medical Plan Duoneb as needed continue Stiolto 2 inhalations daily CXR in 12 months follow-up in 12 months Orders: Orders XR chest 2V Today J43.2 - Centrilobular emphysema Coding Level of Care Code Est Pt Level 4 (57015) Diagnoses Centrilobular emphysema J43.2 COPD type: emphysema Emphysema type: centrilobular Pulmonary nodules R91.8 Time Spent (min) 16
[2023-12-31 10:02] VITALS: BP 118/60; PULSE 89; O2SAT 96; BMI 18.0
== END 2023-12-31 10:14 | disposition home or self-care (01) ==
PROVIDERS: PCP Internal Medicine; Visit Provider Hospitalist
DX: J43.2 Centrilobular emphysema (principal); R91.8 Other nonspecific abnormal finding of lung field
CPT/HCPCS: 99214

== ENCOUNTER → 2023-12-31 09:54 | Outpatient (BNVA) | payer MEDICARE, SELFPAY | PROVIDERS: PCP Internal Medicine; Visit Provider Hospitalist | DX: J43.2 Centrilobular emphysema (principal); R91.8 Other nonspecific abnormal finding of lung field | CPT/HCPCS: 99212 ==

== ENCOUNTER 2024-02-12 08:21 | Outpatient (REF) | payer MEDICARE, SELFPAY | END 2024-02-12 08:22 | disposition home or self-care (01) | LOC: HO.LAB 08:21 | PROVIDERS: PCP Internal Medicine; Visit Provider Physician Assistant | DX: N30.01 Acute cystitis with hematuria (principal) | CPT/HCPCS: 81003; 87086; 87088; 99202 ==

== ENCOUNTER 2024-02-12 08:21 | Outpatient (AMB) | payer MEDICARE, SELFPAY ==
--- NOTE | 2024-02-12 08:59 | AM.OFFWIN_ITS ---
Intake Vital Signs 02/12/24 09:06 Height 5 ft 3 in Weight 102 lb BMI 18.1 BP 112/78 Blood Pressure Location Lt brachial Position Sitting Pulse 64 Pulse Source Pulse Oximeter Temp 97.6 F Temp Source Oral Pulse Oximetry (%) 97 Oxygen Delivery Method Room Air Intake Visit Reasons: EP ?Bladder infection Intake Note: Patient here for foul smelling urine that has been present for about 2-3 days. Patient Tobacco Use Status: Current everyday Tobacco user Allergies No Known Allergies [No Known Allergies*] Allergy (Verified 02/12/24 09:06) Do you need a note to return to daycare/school/sports/work: No HPI HPI Comments History of Present Illness Details Patient is an 83-year-old male who is status post right nephrectomy complaining of foul-smelling urine for the last 3 days. He denies any fevers, burning with urination, increased frequency of urination, urinary retention or blood in his urine. He denies a history of kidney stones but some low back pain. He mentioned he was driving to and from [place] and was sitting in a car lot this weekend and he is attributing his back pain to that. Patient states he just had a workup with his urologist a few weeks ago including a cystoscopy and a 24 hour urine. [facility] Medical History COPD (chronic obstructive pulmonary disease) DVT (deep venous thrombosis) Pneumonia Pre-op chest exam Pulmonary nodules Social History Patient Tobacco Use Status: Current everyday Tobacco user Tobacco use type: Cigarette Cigarette Packs Per Day: 1 Cigarettes Per Day: 3 Years Smoked: 22 years old Review of Systems Const All systems reviewed & are unremarkable except as noted in HPI and below Physical Exam Vital Signs: Last Vital Signs Temp 97.6 F 02/12/24 09:06 Pulse 110 H 02/12/24 09:06 BP 112/78 02/12/24 09:06 Pulse Ox 97 02/12/24 09:06 Oxygen Delivery Method Room Air 02/12/24 09:06 Const General: cooperative, healthy appearing, comfortable and no acute distress Orientation/consciousness: patient oriented x3 HEENT Head: Yes normal to inspection Ears: hearing grossly normal bilaterally General nose exam: Normal external nose present Face and sinus: Yes normal facial exam Neck Neck: Yes normal visual inspection, Yes trachea midline and Yes supple Resp Effort & Inspection: normal respiratory effort and able to speak in complete sentences GI Inspection: Yes normal to inspection Palpation (GI): Soft to palpation and nontender General: Yes no CVA tenderness Back/Spine/Pelvis Back: no CVA tenderness Skin General skin exam: no rashes or lesions noted Neuro General: patient oriented x3 Psych Appearance: grossly normal Speech and movement: Normal speech and movement present Attitude: cooperative Thought process: Normal thought process present Insight: Good insight present (Psych) Judgement: Good judgement present (Psych) Results AMB Urinalysis, Automated UA Leukoctes 0 Johnathan/uL Last Edit by Maged Cook CCM on 02/12/24 09:13 UA Nitrite Negative Last Edit by Maged Cook [facility] on 02/12/24 09:13 UA Urobilinogen 0.2 mg/dL Last Edit by Maged Cook [facility] on 02/12/24 09:13 UA Protein 30 mg/dL Last Edit by Maged Cook [facility] on 02/12/24 09:13 UA pH 6.0 Last Edit by Maged Cook [facility] on 02/12/24 09:13 UA Blood 10 Teo/uL Last Edit by Maged Cook [facility] on 02/12/24 09:13 UA Specific [place] 1.020 Last Edit by Maged Cook [facility] on 02/12/24 09:13 UA Ketone Positive Last Edit by Maged Cook [facility] on 02/12/24 09:13 UA Bilirubin 0 mg/dL Last Edit by Maged Cook [facility] on 02/12/24 09:13 UA Glucose 0 mg/dL Last Edit by Maged Cook [facility] on 02/12/24 09:13 Assessment & Plan Assessment & Plan (1) UTI (urinary tract infection): Code(s): N39.0 - Urinary tract infection, site not specified Qualifiers: Urinary tract infection type: acute cystitis Hematuria presence: with hematuria Qualified Code(s): N30.01 - Acute cystitis with hematuria Plan: Vital signs are stable, patient well-appearing, urinalysis negative for leukocytes or nitrites but positive for protein, blood and ketones. We will treat patient based on his symptoms and send a culture. Gave patient red flag warning signs and when to go to the emergency department and recommended he call his urologist in the next couple of days if his symptoms are not improving. Plan See above Orders: Orders AMB Urinalysis Automated Today Z13.9 - Encounter for screening, unspecified Urine Culture Today N39.0 - Urinary tract infection, site not specified Medications: New cefdinir 300 mg PO Q12H 10 caps 0RF Coding Level of Care Code New Pt Level 3 (74517) Diagnoses Acute cystitis with hematuria N30.01 Urinary tract infection type: acute cystitis Hematuria presence: with hematuria
[2024-02-12 09:06] VITALS: BP 112/78; PULSE 64; TEMP 36.4; O2SAT 97; BMI 18.1
== END 2024-02-12 09:24 | disposition home or self-care (01) ==
PROVIDERS: PCP Internal Medicine; Visit Provider Physician Assistant
DX: N30.01 Acute cystitis with hematuria (principal); Z13.9 Encounter for screening, unspecified

== ENCOUNTER 2024-07-30 08:01 | Outpatient (AMB) | payer MEDICARE, SELFPAY ==
--- OUTSIDE RECORDS SUMMARY | 2024-07-30 08:05 | XMS_ITS | Referral Summary ---
Author Organization [facility] Address [address] [place] [address] Care Team Providers Care Welding Process Engineer Name Role Phone BarrosoCarlos Primary Care Provider [phone] Allergies Active Allergy Reactions Criticality Noted Date Comments Atorvastatin Dizziness 09/04/2016 Medications simvastatin (ZOCOR) 40 mg tablet Take 40 mg by mouth nightly. Active albuterol (PROAIR HFA,VENTOLIN HFA) 90 mcg inhaler Inhale 1-2 puffs by mouth every 6 hours as needed for wheezing or shortness of breath. Use with spacer. Active cyanocobalamin (VITAMIN B12) 100 mcg tablet Take 100 mcg by mouth daily. Active cilostazoL (PLETAL) 100 mg tablet Take 1 tablet (100 mg total) by mouth 2 times a day. May restart on 06/12/2020 1 Active acetaminophen (TYLENOL) 325 mg tablet Take 2 tablets (650 mg total) by mouth every 6 hours. 1 Active omega-3 fatty acids (FISH OIL CONCENTRATE ORAL) Take 1 capsule by mouth in the morning. Active loratadine (CLARITIN) 10 mg tablet Take 10 mg by mouth daily as needed for seasonal allergies. Active milk thistle 150 mg capsule Take 1 capsule by mouth in the morning. Active multivitamin (THERAGRAN) tablet Take 1 tablet by mouth daily. Active coenzyme Q10 (CoQ-10) 100 mg capsule Take 100 mg by mouth daily. Active budesonide (PULMICORT) 0.25 mg/2 mL nebulizer suspension Inhale 2 mL (0.25 mg total) via nebulizer 2 times a day. Rinse mouth with water after use to reduce aftertaste and incidence of candidiasis. Do not swallow. 120 mL 08/08/2020 1:42 PM EDT Active docusate sodium (COLACE) 100 mg capsule Take 1 capsule (100 mg total) by mouth 2 times a day. 1 Active ipratropium-alb uteroL (DUO-NEB) 0.5-2.5 mg/3 mL nebulizer solution Inhale 3 mL via nebulizer 4 times a day. 360 mL 08/08/2020 1:42 PM EDT 1 Active multivitamin tablet Take 1 tablet by mouth daily. 0 1 Active oxyCODONE IR (ROXICODONE) 5 mg tablet Take 1 tablet (5 mg total) by mouth every 4 hours as needed for breakthrough pain. 15 tablet 08/08/2020 1:42 PM EDT 1 Active Additional Information Patient not taking.Reported on 08/31/2020 senna (SENOKOT) 8.6 mg tablet Take 2 tablets (17.2 mg total) by mouth 2 times a day. 1 Active Additional Information Patient not taking.Reported on 08/31/2020 apixaban (Eliquis DVT-PE Treat 30D Start) starter pack (74 tabs) Take 2 tablets (10 mg total) by mouth 2 times a day for 7 days, then take 1 tablet (5 mg total) 2 times a day. 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 Post-op pain 07/31/2020 Emphysema (subcutaneous) (ross rgical) resulting from a procedure 07/31/2020 S/p nephrectomy 07/31/2020 Acute kidney injury 07/31/2020 Low back pain 07/13/2020 Other cataract 07/13/2020 PVD (peripheral vascular disease) Pre-op evaluation Resolved Problems Problem Noted Date Diagnosed Date Resolved Date Acute respiratory failure with hypoxemia 08/01/2020 08/07/2020 Hypoxia 07/31/2020 08/07/2020 Other microscopic hematuria 05/31/2020 08/31/2020 Ureteral mass 05/27/2020 08/31/2020 Immunizations Immunization Administration Dates Next Due Covid-19 Monovalent Vaccine, Moderna, mRNA, PF 0 06/26/2020 Social History Tobacco Use Types Packs/Day Years Used Date Smoking Tobacco: Every Day Cigarettes 1 57 Smokeless Tobacco: Never Comments:3 cigarettes per da y as of 07/01/20 Alcohol Use Standard Drinks/Week Comments Not Currently 0 (1 standard drink = 0.6 oz pur e alcohol) no use for 7 years Sex and Gender Information Value Date Recorded Sex Assigned at Not on file Legal Sex Male 4:18 PM EST Gender Identity Not on file Sexual Orientation Not on file Last Filed Vital Signs Vital Sign Reading Time Taken Comments Blood Pressure 110/71 08/31/2020 11:17 AM EDT Pulse 83 08/31/2020 11:17 AM EDT Temperature 36.6 ??C (97.9 ??F) 08/08/2020 11:25 AM E DT Respiratory Rate 18 08/08/2020 11:25 AM EDT Oxygen Saturation 95% 08/08/2020 11:25 AM EDT Inhaled Oxygen Concentration - - Weight 50.5 kg (111 lb 5.3 oz) 08/08/2020 7:00 A M EDT Height 160 cm (5' 2.99 ) 07/31/2020 8:15 AM EDT Body Mass Index 19.73 07/31/2020 8:15 AM EDT Plan of Treatment Not on file Medical Devices Implanted Type Area State Editor Device Identifier Shelf Expiration Date Model / Serial / Lot Stent Ureteral Glidex Hydrophilic Coating 8fr 24cm Flexima - [id number] Implanted:Qty: 1 on 06/08/2020 by Matthew Vazquez MD at [facility] Stent Right: Ureter [employer] 05/15/2022 [id number] / / [id number] Stent Ureteral Firm Hydroplus Coating 8fr 26cm Percuflex Plus - [id number] Implanted:Qty: 1 on 06/09/2020 by Mireya Diaz MD at [facility] Stent Right: Ureter [employer] 03/08/2023 [id number] / / [id number] Description:Stent removed, n ot in implants, verified as complete by surgeon Procedures * Due to [place] state law, this organization might not be sharing negative HIV tests. Procedure Name Priority Date/Time Associated Diagnosis Comments CT CHEST WO CONTRAST STAT 07/31/2020 1:19 AM EDT from Last 3 Months or Most Recently Relevant to Health Maintenance Results * Due to [place] state law, this organization might not be sharing negative HIV tests. * CT Chest without Contrast (07/31/2020 1:19 AM EDT) Anatomical Region Laterality Modality Body Computed Tomogra phy 07/31/2020 1:34 AM EDT Impressions 07/31/2020 1:42 AM EDT Extensive subcutaneous air with a small amount of pneumomediastinum and free intraperitoneal air. Given that most of the air is concentrated in the subcutaneous space, this is presumably related to recent abdominal intervention. Small to moderate bilateral pleural effusions with extensive lower lobe consolidation and groundglass nodules likely representing a combination of aspiration and/or pneumonia. If this radiology report contains a blank impression section, it is an incomplete radiology report. ??Please contact the interpreting radiologist or applicable radiology division as soon as possible to obtain the completed interpretation. ? Workstation ID: [id number] Up-to-date CT equipment and radiation dose reduction techniques were employed. CTDIvol: 5.6 mGy. DLP: 193 mGy-cm. Narrative 07/31/2020 1:42 AM EDT COMPARISON: None. ?? FINDINGS: LINES AND TUBES: None. AIRWAYS: ??There is filling defect within multiple lower lobe distal airways LUNGS:Extensive bilateral lower lobe consolidation is present. More groundglass and tree-in-bud nodules are seen in the dependent portions of the bilateral upper lobes. This is projection upon a background of moderate centrilobular emphysema PLEURA: ??Small to moderate bilateral pleural effusions are present. No pneumothorax. MEDIASTINUM: ??Small amount of pneumomediastinum is present. Heart size is not enlarged. No mediastinal adenopathy. No pericardial effusion. BONES/SOFT TISSUES: ??Extensive subcutaneous emphysema is seen tracking from the upper abdominal wall through the chest and lower neck. UPPER ABDOMEN: ??Although only partially imaged, small amount of pneumoperitoneum is present. Resulting Agency Comment [id number] Procedure Note Bryce Bazzi MD - 05/01/2021 COMPARISON: None. FINDINGS: LINES AND TUBES: None. AIRWAYS: There is filling defect within multiple lower lobe distalairways LUNGS:Extensive bilateral lower lobe consolidation is present. Moregroundglass and tree-in-bud nodules are seen in the dependent portions ofthe bilateral upper lobes. This is projection upon a background ofmoderate centrilobular emphysema PLEURA: Small to moderate bilateral pleural effusions are present. Nopneumothorax. MEDIASTINUM: Small amount of pneumomediastinum is present. Heart size isnot enlarged. No mediastinal adenopathy. No pericardial effusion. BONES/SOFT TISSUES: Extensive subcutaneous emphysema is seen trackingfrom the upper abdominal wall through the chest and lower neck. UPPER ABDOMEN: Although only partially imaged, small amount ofpneumoperitoneum is present. IMPRESSION: Extensive subcutaneous air with a small amount of pneumomediastinum andfree intraperitoneal air. Given that most of the air is concentrated inthe subcutaneous space, this is presumably related to recent abdominalintervention. Small to moderate bilateral pleural effusions with extensive lower lobeconsolidation and groundglass nodules likely representing a combination ofaspiration and/or pneumonia. If this radiology report contains a blank impression section, it is anincomplete radiology report. Please contact the interpreting radiologistor applicable radiology division as soon as possible to obtain thecompleted interpretation. Workstation ID: [id number] Up-to-date CT equipment and radiation dose reduction techniques wereemployed. CTDIvol: 5.6 mGy. DLP: 193 mGy-cm. Jose TORIBIO IMG CT PROCEDURES Final Resu lt from Last 3 Months or Most Recently Relevant to Health Maintenance Insurance [facility] Advance Directives Documents on File Type Date Recorded Patient Panel Installer Expl anation Health Care Proxy 07/15/2020 2:07 PM * Full Code (Latest Code Status on File) Date Activated Date Inactivated Comments 07/31/2020 8:02 AM 08/08/2020 3:27 PM * Presumed Full Code Date Activated Date Inactivated Comments 07/30/2020 11:54 AM 07/31/2020 8:02 AM * Presumed Full Code Date Activated Date Inactivated Comments 06/08/2020 4:20 PM 06/09/2020 7:48 PM Healthcare Agents on File Name Relationship Healthcare Agent Relationship Communication Lakisha Veloz Significant Other Health Care Agent Care Teams Welding Process Engineer Relationship Specialty Start Date End Date Carlos Barroso PCP - General Internal Medicine 05/10/20
--- OUTSIDE RECORDS SUMMARY | 2024-07-30 08:05 | XMS_ITS | Clinical Summary ---
Author Organization [facility] [address] [facility] Address [address] [place] [address] Phone Care Team Providers Care Rewards Consultant Name Role Phone Carlos Barroso MD Primary Care Provider [phone] Allergies No known active allergies Medications tiotropium-olod ateroL (Stiolto Respimat) 2.5-2.5 mcg/actuation mist inhaler 2 inhalations daily 7 Active coenzyme Q-10 10 mg capsule Take by mouth. A ctive omega-3 acid ethyl esters (LOVAZA) 1 gram capsule Take by mouth. Activ e UNABLE TO FIND Take by mouth. Multiple Vitamins-Mineral s (ICAPS AREDS FORMULA OR) 0 Active albuterol HFA (PROAIR HFA ; PROVENTIL HFA ; VENTOLIN HFA) 90 mcg/actuation inhaler Inhale 2 Puffs into the lungs every 4 hours as needed for Cough. 7 Active loratadine (CLARITIN) 10 mg tablet Take 10 mg by mouth daily. Active cilostazoL (PLETAL) 100 mg tablet Take 100 mg by mouth 2 times daily. Active cholecalciferol (VITAMIN D-3) 50 mcg (2,000 unit) capsule Take by mouth. A ctive vitamin B complex (B COMPLEX-VITAMIN B12 ORAL) Take 2 Tabs by mouth daily. Active simvastatin (ZOCOR) 40 mg tablet Take 1 tablet (40 mg total) by mouth at bedtime. at bedtime. 90 tablet 2 5 11/23/19 25 Active Active Problems Problem Noted Date Diagnosed Date Malignant neoplasm of right ureter (CMS/HCC V24, [facility] V28) 04/25/2021 Overview (02/14/2024): transitional ca, s/p nephrectomy, follows with Dr. Shaffer Stage 3a chronic kidney disease ([facility] V24, [facility] V28) 04/20/2021 Assessment & Plan (05/26/2024 9:14 AM EST): Orders: Thyroid stimulating hormone with reflex to free t4 and free t3; Future Acute deep vein thrombosis ( DVT) of distal vein of both lower extremities ([facility] V24, [facility] V28) 08/22/2020 Overview (02/14/2024): Under the setting of recent hospitalization for nephro ureterectomy, involving right soleal vein and left peroneal vein below the knee and distal per vascu Aortic atherosclerosis ([facility] V24) 08/20/2019 CAD (coronary artery disease) 08/20/2019 Assessment & Plan (05/26/2024 9:14 AM EST): Orders: Comprehensive metabolic panel; Future Lipid panel with reflex to direct LDL; Future Thyroid stimulating hormone with reflex to free t4 and free t3; Future PAD (peripheral artery disease) ([facility] V24) Overview (02/14/2024): Sees [facility] vascular services Per office visit note April 2021 right ankle-brachial index 1.21; left ankle brachial index 0.80. Mild to moderate decreased arterial flow to ankles at rest Pre-diabetes 12/22/2016 Assessment & Plan (05/26/2024 9:14 AM EST): Orders: Hemoglobin A1c; Future Thyroid stimulating hormone with reflex to free t4 and free t3; Future Pulmonary nodules 12/22/2016 Chronic obstructive pulmonar y disease ([facility] V24, [facility] V28) 09/22/2014 Hyperlipidemia 05/07/2012 Assessment & Plan (05/26/2024 9:14 AM EST): Orders: Thyroid stimulating hormone with reflex to free t4 and free t3; Future Carotid stenosis 05/07/2012 Overview (02/14/2024): Takes aggrenox, prescribed by [facility] Per pt right side Carotid US 2017: Fairly extensive hard plaque. No evidence of hemodynamically significant stenosis 04/2021 office visit note with most recent carotid duplex: 50 to 69% stenosis of both right and left internal carotid arteries. 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 Encounters Date Type Department Care Team Description 05/26/2024 8:45 AM EST Office Visit Adult Medicine [address] [phone] Carlos Barroso MD Pre-diabetes (Primary Dx); Coronary artery disease involving [place] coronary artery of [place] heart without angina pectoris; Cognitive impairment; Other hyperlipidemia; Stage 3a chronic kidney disease (CMS/HCC V24, CMS/HCC V28); Routine general medical examination at a health care facility from Last 3 Months Immunizations Name Administration Dates Next Due Influenza trivalent, 0.5mL ( Fluad) 65yo and older 12/30/2022,01/07/2022,12/12/2019 Influenza trivalent, 0.5mL, preservative free (Fluarix; FluLaval; Fluzone) ages 6mo and older (Afluria) 3 years and older 01/12/2014,02/05/2007 Influenza, Unspecified 01/07/2022,2019,01/14/2019,01/02 Moderna SARS-CoV-2 COVID-19, mRNA, LNP-S, preservative free 03/05/2021,05/29/2020 Pneumococcal conjugate 13 va lent (Prevnar 13, PCV13) 2mo and older 04/27/2015 Pneumococcal polysaccharide 23 valent (Pneumovax 23) 2yo and older 04/27/2008 Td Tetanus diptheria (Tdvax) 7yo and older 04/02/2001 Tdap Tetanus diptheria acell ular pertussis (Boostrix; Adacel) 7yo and older 03/16/2020,05/07/2012 Surgical History Surgery Date Site/Laterality Comments CHOLECYSTECTOMY 1971 PROCEDURE: HISTORICAL CHOLECYSTECTOMY OTHER SURGICAL HISTORY PROCEDURE: HISTORY OTHER; COMMENT: urethral surgery COLONOSCOPY 2008 PROCEDURE: HISTORICAL COLONOSCOPY; COMMENT: Sary Nova; one small tubular adenoma. 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) Chronic obstructive pulmonar y disease ([facility] V24, [facility] V28) 09/22/2014 DX:Chronic obstructive pulm onary disease ([facility]) History of colonic polyps 02/10/2006 DX:His tory of colonic polyps; COMMENT: Negative colonoscopy 11/20/2013, no colon cancer screening needed for 10 years. Hyperlipidemia 05/07/2012 DX:Hyperlipidemi a Pre-diabetes 12/22/2016 DX:Pre-diabetes Pulmonary nodules 12/22/2016 DX:Pulmonary n odules Tobacco use 07/19/2005 DX:Tobacco use Aortic atherosclerosis ([facility] V24) 08/20/2019 DX:Aortic atherosclerosis ([facility]) CAD (coronary artery disease) 08/20/2019 DX :CAD (coronary artery disease) Family History Medical History Relation Name Comments Stroke Father Other: Other Mother ovarian cancer Breast cancer Neg Hx Relation Name Status Comments Brother 1 (Age 48) lung cance r Brother 2 Alive Father stroke Mother uterine cancer Sister Alive Social History Tobacco Use Types Packs/Day Years Used Date Smoking Tobacco: Some Days Cigarettes 0.8 54.4 Started: [birth year]/02/1962; Last attempted to quit: 2016 Smokeless Tobacco: Never Alcohol Use Standard Drinks/Week Comments No 0 (1 standard drink = 0.6 oz pur e alcohol) Sex and Gender Information Value Date Recorded Sex Assigned at Not on file Legal Sex Male 4:43 AM EST Gender Identity Not on file Sexual Orientation Not on file Obstetrics History Last Filed Vital Signs Vital Sign Reading Time Taken Comments Blood Pressure 99/48 05/26/2024 8:56 AM EST Pulse 102 05/26/2024 8:56 AM EST Temperature 36.1 ??C (96.9 ??F) 05/26/2024 8:56 AM ES T Respiratory Rate 05/26/2024 8:56 AM EST Oxygen Saturation 99% 05/26/2024 8:56 AM EST Inhaled Oxygen Concentration - - Weight 46.7 kg (103 lb) 05/26/2024 8:56 AM EST Height 160 cm (5' 3 ) 05/26/2024 8:56 AM EST Body Mass Index 18.25 05/26/2024 8:56 AM EST Plan of Treatment Upcoming Encounters Date Type Department Care Team (Late st Contact Info) Description 12/10/2024 8:30 AM EDT Office Visit Adult Medicine [facility] [address] [place] [phone] Carlos Barroso MD [address] [place] [address] Health Maintenance Due Date Last Done Comments Medicare Annual Wellness Visit 03/11/2022 Social Influencers of Health Screening 03/11/2022 COVID-19 Vaccine ( season) 2023 03/05/2021, 06/26/2020, 05/29/2020 Hypertension/CHF/CAD Annual BMP Blood Test 11/04/2024 11/05/2023, 11/05/2023 Depression Screening 05/26/2025 05/26/2024 Falls Risk Assessment 05/26/2025 05/26/2024 Cholesterol Screening (Lipid Panel) 11/04/2028 11/05/2023, 11/05/2023 DTaP,Tdap,and Td Vaccines (8 - Td or Tdap) 03/16/2030 03/16/2020, 05/07/2012, 08/22/2010, Additional history exists Pneumococcal Vaccine: 50+ Years Completed 04/27/2015, 08/06/2014, 05/25/2011, Additional history exists Influenza Vaccine Completed 12/21/2023, , 12/31/2022, Additional history exists RSV Immunization Adult Patients Completed 05/23/2024 Zoster Vaccines Completed 05/23/2024, 07/31, 01/13/2020, Additional history exists HIB Vaccines Aged Out No longer eligi ble based on patient's age to complete this topic HPV Vaccines Aged Out No longer eligi ble based on patient's age to complete this topic Hepatitis A Vaccines Aged Out No long er eligible based on patient's age to complete this topic Hepatitis B Vaccines Aged Out No long er eligible based on patient's age to complete this topic IPV Vaccines Aged Out No longer eligi ble based on patient's age to complete this topic MMR Vaccines Aged Out No longer eligi ble based on patient's age to complete this topic Meningococcal ACWY Vaccine Aged Out N o longer eligible based on patient's age to complete this topic Meningococcal B Vaccine Aged Out No l onger eligible based on patient's age to complete this topic RSV Immunization Patients Under 20 months Aged Out No longer eligible based on patient's age to complete this topic Varicella Vaccines Aged Out No longer eligible based on patient's age to complete this topic Procedures Procedure Name Priority Date/Time Associated Diagnosis Comments ANNUAL BMP BLOOD TEST Routine 11/05/2023 LIPID PANEL Routine 11/05/2023 from Last 3 Months or Most Recently Relevant to Health Maintenance Results * Annual BMP Blood Test (11/05/2023) Pathologist [facility] Annual BMP Blood Test abstracted Historical Provider HEALTH MAINTENANCE Final Result * Lipid panel (11/05/2023) LDL/HDL Ratio 2 0 - 4 Triglycerides 94 0 - 150 mg/dL Cholesterol 192 0 - 200 mg/dL HDL 79 >=40 mg/dL LDL Cholesterol 95 0 - 100 mg/dL Blood Venous blood specimen / Unknown Historical Provider LAB BLOOD ORDERABLES Carmen l Result from Last 3 Months or Most Recently Relevant to Health Maintenance Insurance [employer] Care Teams Rewards Consultant Relationship Specialty Start Date End Date Carlos Barroso MD [address] [place] [address] PCP - General Internal Medicine 11/26/15
--- OUTSIDE RECORDS SUMMARY | 2024-07-30 08:05 | XMS_ITS | Patient Health Record ---
Author Organization [facility] Address [address] [place] [phone] Care Team Providers Care Epoxy Fabrication Supervisor Name Role Phone Chio HERRERA, Carlos Anderson Primary Care Provider Unav Stone Pittman Unavailable [phone] Reason For Referral No Information Plan Of Treatment No Information Insurance Providers Payer Name Payer Address Payer Phone Subscriber Number Group Number Insured Name Patient Relationship to Insured Coverage Start Date Coverage End Date [facility] [address] [place] [phone] [id number] Yaya Epps Self - patient is the insured
--- OUTSIDE RECORDS SUMMARY | 2024-07-30 08:05 | XMS_ITS | Encounter Summary ---
Author Name [facility] [facility] [place] Address [address] [place] [id number] Care Team Providers Care Rectifying Operator Name Role Phone ANATOLY AWAN Primary Care Provider Unavail able Insurance Providers: All historical and current Section Date Range: From patient's date of to the date document was created. This section includes the names of all active insurance providers for the patient. Insurance Provider Type of Coverage Plan Name Start of Policy Coverage End of Policy Coverage Group Number Member ID Insurance Provider's Telephone Number Policy Canela's Name Patient's Relationship to Policy Canela [employer] POINT OF SERVICE Apr 02, 2009 [id number] SHALOM RADFORD [employer] PHARMACY MANAGEMENT PRESCRIPT ION Apr 02, 2009 [id number] [phone] SHALOM RADFORD [facility] (WNR) MEDICARE ADVANTAGE [facility] (WNR) Apr 02, 2017 [id number] SHALOM RADFORD [facility] (WNR) MEDICARE (M) [facility](W NR) Apr 02, 2015 [id number] SHALOM RADFORD PATIENT MEDICARE (WNR) MEDICARE (M) PART A July 31, 2005 PART A [id number] SHALOM RADFORD PATIENT MEDICARE (WNR) MEDICARE (M) PART B July 31, 2005 PART B [id number] SHALOM RADFORD PATIENT MEDICARE (WNR) MEDICARE (M) PART A July 31, 2005 PART A [id number] [phone] SHALOM RADFORD PATIENT MEDICARE (WNR) MEDICARE (M) PART B July 31, 2005 PART B [id number] SHALOM RADFORD [facility] (DENTAL) DENTAL INSURANCE [place] Apr 02, 2018 [id number] FB SHALOM RADFORD PATIENT Selected Encounter This section includes the information on record at [place] for the Encounter. Date/Time Encounter Type Encounter Description Reason Provider Source May 14, 2024 09:30 AM OFFICE O/P EST HI 40 MIN PRIMARY CARE/MEDICINE ICD-10-CM E78.5 Hyperlipidemia, unspecified DARREN RUTH Encounter Template Text not used by [place] Assessments - Encounter Diagnoses This section includes the primary and secondary diagnoses documented for the Encounter. Date/Time Primary/Secondary Diagnosis Diagnosis Name Provider Source Jun 15, 2024 04:29 PM PRIMARY Hyperlipidemia, unspecified DARREN RUTH Jun 15, 2024 04:29 PM SECONDARY Chronic obstructive pulmonary disease, unspecified DARREN RUTH Jun 15, 2024 04:29 PM SECONDARY Malignant neoplasm of urethra DARREN RUTH Jun 15, 2024 04:29 PM SECONDARY Nicotine dependence, unspecified, uncomplicated DARREN RUTH Jun 15, 2024 04:29 PM SECONDARY Peripheral vascular disease, unspecified DARREN RUTH Jun 15, 2024 04:29 PM SECONDARY Personal history of other venous thrombosis and embolism DARREN RUTH Jun 15, 2024 04:29 PM SECONDARY Underweight DARREN RUTH Plan of Treatment: Future Appointments (+ 6 months) and Future Tests (+/- 45 days) The Plan of Treatment section includes future care activities for the patient from all [place] treatmentfacilities. This section includes future appointments and future orders which are active, pending or scheduled. Future Appointments This section includes appointments that were scheduled to occur 6 months from the date of the Encounter, up to a maximum of 20 appointments. The data comes from all [place] treatment facilities. Appointment Date/Time Appointment Type Appointme nt Facility Name May 16, 2024 11:30 AM AMBULATORY - MEDICINE [place] [facility] July 31, 2024 09:10 AM AMBULATORY - MEDICINE [place] [facility] Sep 01, 2024 09:00 AM [facility] Vital Signs: All taken on the encounter date This section contains inpatient and outpatient Vital Signs collected on the date of the Encounter. Date/Time Temperature Pulse Blood Pressure Respiratory Rate SP02 Pain Height Weight Body Mass Index Source May 14, 2024 09:40 AM 96.9 98 120/70 19 95 63 98 17 [facility] Social History: Smoking Status (Most current) and Tobacco Use (All prior to encounter date) This section includes the most current, and the historical, smoking and tobacco- related health factors from the [place] facility where the Encounter took place. Current Smoking Status This section includes the most current smoking, or tobacco-related health factor, from the [place] facility where the Encounter took place. Date/Time Current Smoking Status Comment Facil ity May 16, 2023 11:00 AM VA-TOBACCO USER SOME DAYS [facility] Tobacco Use History This section includes a history of the smoking, or tobacco-related health factors, that were collected on or before the date of the Encounter. The data comes from the [place] facility where the Encounter took place. Date/Time Smoking Status/Tobacco Use Comment F acility May 16, 2023 11:00 AM VA-TOBACCO USE 30 YEARS OR MORE [facility] May 16, 2023 11:00 AM VA-TOBACCO USE ADVICE [facility] May 16, 2023 11:00 AM VA-TOBACCO USE DYNAMITER NO [facility] May 16, 2023 11:00 AM VA-TOBACCO USE MED NO [facility] May 16, 2023 11:00 AM VA-TOBACCO USER SOME DAYS [facility] May 11, 2022 10:00 AM VA-TOBACCO DOESNT USE WI 30 MIN WAKEUP [facility] May 11, 2022 10:00 AM VA-TOBACCO USE 5 TO 15 YEARS [facility] May 11, 2022 10:00 AM VA-TOBACCO USE ADVICE [facility] May 11, 2022 10:00 AM VA-TOBACCO USE DYNAMITER NO [facility] May 11, 2022 10:00 AM VA-TOBACCO USE MED NO [facility] May 11, 2022 10:00 AM VA-TOBACCO USER SOME DAYS [facility] Feb 28, 2021 10:00 AM VA-TOBACCO FORMER USER [facility] Feb 28, 2021 10:00 AM VA-TOBACCO QUIT 1 TO < 5 YRS [facility] Jan 08, 2020 09:00 AM VA-TOBACCO DOESNT USE WI 30 MIN WAKEUP [facility] Jan 08, 2020 09:00 AM VA-TOBACCO USE 30 YEARS OR MORE [facility] Jan 08, 2020 09:00 AM VA-TOBACCO USE ADVICE [facility] Jan 08, 2020 09:00 AM VA-TOBACCO USE DYNAMITER NO [facility] Jan 08, 2020 09:00 AM VA-TOBACCO USE MED NO [facility] Jan 08, 2020 09:00 AM VA-TOBACCO USER SOME DAYS [facility] Jul 27, 2017 11:47 AM VA-TOBACCO FORMER USER [facility] Jul 27, 2017 11:47 AM VA-TOBACCO QUIT < 1 YEAR [facility] Jul 27, 2017 10:50 AM CURRENT SMOKER [facility] Jul 27, 2017 10:50 AM V1-PT DECLINES REF TO TOBACCO CESS [facility] Jul 27, 2017 10:50 AM V1-PT DECLINES TOB ACCO CESSATION [facility] Jul 27, 2017 10:50 AM V1-PT THINKING ABO UT QUIT TOBACCO USE [facility] Sep 04, 2016 09:38 AM QUIT TOBACCO USE I N PAST YEAR stopped smoking 4 weeks ago was smoking a pack a day [facility] August 24, 2015 02:34 PM CURRENT SMOKER 6-10 cigarettes a day [facility] August 24, 2015 02:34 PM V1-PT NOT INTEREST ED IN QUIT TOBACCO USE [facility] August 06, 2014 10:17 AM V1-PT DECLINES TOB ACCO CESSATION [facility] August 06, 2014 10:17 AM V1-PT THINKING ABO UT QUIT TOBACCO USE [facility] Feb 20, 2014 09:01 AM CURRENT SMOKER 1/2 PACK A DAY [facility] Feb 20, 2014 09:01 AM V1-PT DECLINES REF TO TOBACCO CESS [facility] Feb 20, 2014 09:01 AM V1-PT DECLINES TOB ACCO CESSATION [facility] Feb 20, 2014 09:01 AM V1-PT NOT INTEREST ED IN QUIT TOBACCO USE [facility] Mar 21, 2013 10:27 AM CURRENT SMOKER Pt. stated 10-15 cigarettes a day!. [facility] Mar 21, 2013 10:27 AM V1-PT NOT INTEREST ED IN QUIT TOBACCO USE [facility] Sep 04, 2012 07:59 AM V1-PT DECLINES REF TO TOBACCO CESS [facility] Sep 04, 2012 07:59 AM V1-PT DECLINES TOB ACCO CESSATION [facility] Sep 04, 2012 07:59 AM V1-PT THINKING ABO UT QUIT TOBACCO USE [facility] Mar 19, 2012 10:34 AM CURRENT SMOKER sto [facility] Feb 07, 2011 02:53 PM QUIT TOBACCO USE 1 -7 YEARS AGO [facility] Jul 20, 2010 09:40 AM V1-PT DECLINES REF TO TOBACCO CESS [facility] Jul 20, 2010 09:40 AM V1-PT NOT INTEREST ED IN QUIT TOBACCO USE [facility] Jan 14, 2010 08:08 AM CURRENT SMOKER Pt. stated he smokes a pack a day!! [facility] Jan 14, 2010 08:08 AM V1-PT DECLINES REF TO TOBACCO CESS [facility] Jan 14, 2010 08:08 AM V1-PT DECLINES TOB ACCO CESSATION [facility] Jan 14, 2010 08:08 AM V1-PT NOT INTEREST ED IN QUIT TOBACCO USE [facility] Advance Directives: All historical and current Section Date Range: From patient's date of to the date document was created. This section includes ALL of a patient's completed or amended [place] Advance and Rescinded Directives. The entries below indicate that a directive exists for the patient, but an actual copy is not included with this document. The data comes from all [facility]. Date Advance Directives Provider Source Jan 17, 2010 ADVANCE DIRECTIVE MONY COSTA Encounter Notes: All associated encounter notes This section contains the clinical notes associated to the Encounter. Date/Time Encounter Note(s) Provider Source May 14, 2024 09:35 AM PRIMARY CARE NURSE PRACTITIONER OUTPATIENT NOTE: LOCAL TITLE: NURSE PRACTITIONER OUTPATIENT NOTE STANDARD TITLE: PRIMARY CARE NURSE PRACTITIONER OUTPATIENT NOTE DATE OF NOTE: MAY 14, 2024@09:35 ENTRY DATE: MAY 14, 2024@09:35:31 AUTHOR: DARREN RUTH EXP COSIGNER: URGENCY: STATUS: COMPLETED PRIMARY CARE VISIT SHALOM RADFORD, is a 83 y/o WHITE MALE [place] who [facility] the [place] [facility]. TYPE OF VISIT: Face to face New to this provider HPI: COPD, continues to smoke - down to 1/2 ppd. Reports no SOB at rest, mild JOHNSON. No cough. On maintenance and rescue Rx. Followed by pulmonology. HLD - remains on statin, fish oil BP stable, Denies CP, palpitations, peripheral edema. PVD, hx DVT - on statin, cilostazol. US is pending RLE per vascular surgery. Denies pain RLE. 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 Denies urine sx. Recent labs reviewed and all medications were reconciled during this visit. HEALTHCARE PROVIDERS: see problem list HISTORY: PERIOD OF SERVICE - infoBizz FROM Sep TO Sep COMBAT SERVICE INDICATED: No VITAL SIGNS: Blood Pressure: 120/70 (05/14/2024 09:40) Pain: 0 (11/03/2021 15:24) Patient Height: 63 in [160.0 cm] (05/14/2024 09:40) Patient Weight: 98 lb [44.45 kg] (05/14/2024 09:40) Pulse: 98 (05/14/2024 09:40) Respiration: 19 (05/14/2024 09:40) Temperature: 96.9 F [36.1 C] (05/14/2024 09:40) REVIEW OF SYSTEMS: see HPI PHYSICAL EXAMINATION: General: Chronically ill-appearing Witt in no obvious distress. Underweight Mental Status: Alert and oriented x4. Neck: Supple. No JVD. No lymphadenopathy. No bruit. Thyroid unremarkable. Lungs: CTAB. Normal chest excursion. Eupneic respirations. CV: Heart tones S1, S2. RRR. No M/G/R. No peripheral edema. Calves supple and NT. No hair to BLE, mild vascular changes noted. + pedal pulses. GI: Abdomen is soft and nontender. No palpable mass or organomegaly. : No CVA tenderness. Digital prostate exam deferred. Psych: Normal mood and affect. Normal judgment. Cooperative with exam, follows commands. ALLERGIES: ATORVASTATIN HEALTH MAINTENANCE - see end of note PREVENTIVE MEDICINE GOALS Advance Directive Screen MH AD May 16 Suicide Screen May 16 Depression Screening May 16 Falls & Incontinence Screen May 16 Tobacco Use Screening May 16 Influenza Immunization DUE NOW Medication Reconciliation DUE NOW Alcohol Use Screen (AUDIT-C) May 16 RSV Immunization DUE NOW Sexual Orientation May 16 PAVE Foot Check May 16 (Optional) Whole Health Documentation DUE NOW ASSESSMENT/PLAN: Active problems - Computerized Problem List is the source for the followin. Hyperlipidemia (SCT [id number]) - will request labs from community PCP. Continue Rx until risk > benefit. 2. Chronic obstructive lung disease - continues to smoke. Symptoms mild. Continue Rx. Followed by pulmonology. Decline expected with natural progression of disease. 3. Nicotine dependence - 1/2 ppd. See above. Not interested in cessation. 4. Peripheral vascular disease (SNOMED CT [id number]) - continue Rx. Followed by vascular surgery. 5. hx DVT RLE - US for f/u is pending. Followed by vascular surgery. Continue Rx. 6. hx urethra tumor - asymptomatic. Followed by urology. 7. underweight - current weight 98#, unchanged. States he is unconcerned about this. FOLLOW UP: Return to clinic as noted below and/or sooner PRN UPCOMING APPOINTMENTS: 05/16/2024 11:30 COM CARE-VAS SURGERY 07/31/2024 09:10 COM CARE-UROLOGY 09/01/2024 09:00 [facility] 4 No barriers noted; patient understands and agrees to current treatment plan. If patient has any questions, concerns or changes in current health status he/she will call or [facility]. A total of 40 minutes were spent F2F with the patient during this encounter and over half that time was spent on counseling and coordination of care. We discussed in depth all current health conditions and management of these conditions. HM: Influenza Immunization: The patient has received the seasonal influenza vaccine for the current season at another location. Documented: INFLUENZA, UNSPECIFIED FORMULATION Historical Date Administered: Jan 01, 2024 Information Source: FROM PATIENT'S RECALL Medication Reconciliation: Outpatient: Has the patient been taking medications as documented in the EMLR? YES: The patient has been taking medications as documented in the EMLR. Essential Medication List for Review used to complete this medication reconciliation. INCLUDED IN THIS LIST: Alphabetical list of active outpatient prescriptions dispensed from this [place] (local) and dispensed from another [place] or [facility] facility (remote) as well as inpatient orders (local, pending and active), local clinic medications, locally documented non-VA medications, and local prescriptions that have or been discontinued in the past 90 days. - All changes in medications, including all non-VA/Herbal/OTC medications were entered into CPRS. - If there were any medications the patient should no longer take, they were discontinued. - The patient/caregiver was instructed to update this list, discard old lists, and take this list to the next appointment, whether with a VA or non-VA provider. COVID-19 Immunization: Refused Moderna Monovalent COVID-19 vaccine Immunization: COVID-19 (MODERNA), MRNA, LNP-S, PF, 50 MCG/0.5 ML (AGES 12+ YEARS) Refusal Reason: PATIENT DECISION Patient refuses all immunization(s) in the COVID-19 group Date Documented: 06/15/24 16:19 RSV Immunization: Respiratory Syncytial Virus (RSV) Vaccine: Refused GlaxoSmithKline (RSV vaccine, adjuvanted, Arexvy). Immunization: RSV, RECOMBINANT, PROTEIN SUBUNIT RSVPREF3, ADJUVANT RECONSTITUTED, 0.5 ML, PF Refusal Reason: PATIENT DECISION Patient refuses all immunization(s) in the RSV group Date Documented: 06/15/24 16:19 /harpreet/ AQUILINO MONTEMAYOR CERTIFIED NURSE PRACTITIONER Signed: 06/15/2024 16:27 DARREN RUTH [facility]
--- OUTSIDE RECORDS SUMMARY | 2024-07-30 08:05 | XMS_ITS | Continuity of Care Document ---
Author Name [facility] Organization [facility] Care Team Providers Care It Systems Analyst Consultant Name Role Phone [facility] Unavailable Unavailable Problems Combined list of problems from Department of Defense and Veterans Affairs facilities. It does not include entries that were removed or entered in error. 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 Cifuentes [facility] CKD - chronic kidney disease Active Condition May 14, 2024 Entered By: DARREN RUTH Comment: 11/02/23 GFR 54 [facility] Glaucoma Active Condition May 14 Entered By: DARREN RUTH Comment: left eye - gets injections [id number] 2024 Entered By: DARREN RUTH Comment: Dr. Mqcueen Ophthalmology [facility] History of DVT (deep vein thrombosis) Active Condition [facility] Hyperlipidemia (SCT 15536486) Active Condition [facility] True Intermittent Claudication * (ICD-9-CM 443.9) Active Condition [facility] Nicotine dependence Active Condition May 14, 2024 Entered By: DARREN RUTH Comment: 05/14/24 started age 24, 1ppd - down to < 1/2 per week now [facility] Peripheral vascular disease (SNOMED CT 855760983) Active Condition Mar 19, 2012 Entered By: ORVILLE GAMBLE Comment: Claudication, LLE; See Vascu Note [place] Apr Entered By: ORVILLE GAMBLE Comment: use Cilostazol first (before any surg)May 14, 2024 Entered By: DARREN RUTH Comment: followed by vascular surgery [facility] Personal History of Alcoholism Active Condition Apr 24, 2011 Entered By: PRAMOD UREÑA Comment: Quit drinking 2011 Entered By: PRAMOD UREÑA Comment: 4-5wine or beer or whiskey/day since 1986 [facility] Personal history of primary malignant neoplasm of kidney Active Condition May 14, 2024 Entered By: DARREN RUTH Comment: right kidney removal [place] Screening for malignant neoplasm of colon done Active Condition Jul 20, 2010 Entered By: PRAMOD UREÑA Comment: 2006: Colonoscopy: Polypectomy 2009: Normal: Due 2024 Entered By: DARREN RUTH Comment: 05/14/24 aged out, no further colo [facility] Seasonal allergy Active Condition [facility] [place] [facility] Under care of multiple providers Active Condition Jun 15, 2024 Entered By: DARREN RUTH Comment: community PCP Shahid Haddad 2024 Entered By: DARREN RUTH Comment: pulmonology Dr. Velásquez 2024 Entered By: DARREN RUTH Comment: vascular surgery Dr. Zeng 2024 Entered By: DARREN RUTH Comment: Opthalmology Dr. Wood 2024 Entered By: DARREN RUTH Comment: urology Dr. 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 Cruz@ 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 Entered By: PRAMOD UREÑA Comment: Hobbies: watch sports, fishing, hunterMay 25, 2011 Entered By: PRAMOD UREÑA Comment: [facility]:DM, hypercholesterolemi a, glaucomaMay 25, 2011 Entered By: PRAMOD UREÑA Comment: Father: at 86 yo:DVT CVA AF [facility] Tinea Unguium Inactive Condition 05/14/2024 [facility] Diagnosis: ICD-10-CM E78.5 Hyperlipidemia, unspecified Active Diagnosis [facility] Diagnosis: ICD-10-CM R73.03 Prediabetes Active Diagnosis [facility] Diagnosis: ICD-10-CM Z46.0 Encounter for fit/adjst of spectacles and contact lenses Active Diagnosis [facility] Diagnosis: ICD-10-CM H35.3111 Nexdtve age-related mclr degn, right eye, early dry stage Active Diagnosis [facility] [place] [facility] Diagnosis: ICD-10-CM E78.2 Mixed hyperlipidemia Active Diagnosis [facility] D Medications Combined list of outpatient medications from Department of Defense and Veterans Affairs facilities.Medications provided include 1) outpatient medications from the last 15 months, and 2) patient-reported medications. Medication Details Route Status Patient Instructions Prescription Expires Prescription Number Last Dispense Date Ordering Provider Order Date Order Qty Source ALBUTEROL 90MCG/ACTUA T (CFC-F) INHL,ORAL,8 .5GM DOSE COUNTER INHALE 1 PUFF BY MOUTH THREE TIMES DAILY NEEDED FOR [place] RESPIR ATORY (INHAL ATION) ACTIVE 05/15/2025 [id number] 5 Cat RUTH 2024 3 [place] ALBUTEROL 90MCG/ACTUA T (CFC-F) INHL,ORAL,8 .5GM DOSE COUNTER INHALE 1 PUFF BY MOUTH THREE TIMES DAILY NEEDED FOR [place] RESPIR ATORY (INHAL ATION) DISCONT INUED 11/14/2024 [id number] MIKE ALMAZAN F 2023 3 [place] CILOSTAZOL 100MG TAB TAKE ONE TABLET BY MOUTH TWICE DAILY -TAKE 30 MINUTES BEFORE MEALS OR TWO HOURS AFTER MEALS ORAL DISCONT INUED 05/18/2024 [id number] 4 Beverly MONTERO D 2023 [facility] FISH OIL 1000MG (500MG DHA/EPA) CAP,ORAL TAKE 1 CAPSULE BY MOUTH DAILY ORAL ACTIVE PRAMOD VASQUEZ [place] LORATADINE 10MG TAB TAKE ONE TABLET BY MOUTH DAILY ORAL ACTIVE Cass WILEY [place] MILK THISTLE CAP/TAB 100 MG po TWICE DAILY ACTIVE PRAMOD VASQUEZ [place] OLODATEROL 2.5MCG/TIOT ROPIUM 2.5MCG/ACTU AT INHL,ORAL,6 0D,4GM INHALE 2 PUFFS (1 DOSE) BY MOUTH ONCE DAILY RESPIR ATORY (INHAL ATION) ACTIVE 05/15/2025 [id number] 5 Cat RUTH 2024 3 [place] OLODATEROL 2.5MCG/TIOT ROPIUM 2.5MCG/ACTU AT INHL,ORAL,6 0D,4GM INHALE 2 PUFFS (1 DOSE) BY MOUTH ONCE DAILY RESPIR ATORY (INHAL ATION) DISCONT INUED 06/01/2024 [id number] 5 MIKE ALMAZAN F 2023 1 [place] OLODATEROL 2.5MCG/TIOT ROPIUM 2.5MCG/ACTU AT INHL,ORAL,6 0D,4GM INHALE 2 PUFFS (1 DOSE) BY MOUTH ONCE DAILY RESPIR ATORY (INHAL ATION) DISCONT INUED BY PROVIDE R 08/14/2023 [id number] 4 MIKE ALMAZAN F 2023 3 IELD SIMVASTATIN 40MG TAB TAKE ONE TABLET BY MOUTH EVERY EVENING AFTER SUPPER FOR CHOLESTE ROL ORAL ACTIVE 11/14/2024 [id number] 4 MIKE ALMAZAN F 2023 90 [place] SIMVASTATIN 40MG TAB TAKE ONE TABLET BY MOUTH EVERY EVENING AFTER SUPPER FOR CHOLESTE ROL ORAL DISCONT INUED 05/16/2024 [id number] 4 MIKE ALMAZAN F 2023 90 [place] Allergies, Adverse Reactions, Alerts Combined list of allergies from Department of Defense and Veterans Affairs facilities. It does not include entries that were removed or entered in error. Substance Category Reaction Severity Reaction type Status Date Reported Comments Source ATORVASTATIN Propensity to adverse reactions to drug (finding) Dizziness active 7 [facility] Immunizations Combined list of available immunizations from the Department of Defense and Veterans Affairs facilities. Immunization Series Date Given Administered By Site Reaction Lot Number CVX Code Drug Solutions Developer Status Comments Source INFLUENZA, UNSPECIFIED FORMULATION 2023 88 complet ed HISTORICA L INFORMATI ON - FROM PATIENT'S RECALL, [facility] INFLUENZA, UNSPECIFIED FORMULATION 2023 88 complet ed HISTORICA L INFORMATI ON - FROM PATIENT'S RECALL, [facility] INFLUENZA, UNSPECIFIED FORMULATION 2022 88 complet ed HISTORICA L INFORMATI ON - SOURCE UNSPECIFI ED, [facility] INFLUENZA, UNSPECIFIED FORMULATION 2021 88 complet ed HISTORICA L INFORMATI ON - FROM PATIENT'S RECALL, [facility] COVID-19 (MODERNA), MRNA, LNP-S, PF, 100 MCG OR 50 MCG DOSE 3 2020 207 complet ed MOD; [id number]; 2 [place] INFLUENZA VACCINE, QUADRIVALENT, ADJUVANTED 2020 205 complet ed [place] ZOSTER RECOMBINANT 2 2020 187 complet ed [place] COVID-19 (MODERNA), MRNA, LNP-S, PF, 100 MCG/0.5 ML DOSE 2 2020 207 complet ed MOD; [id number]; 1 [place] COVID-19 (MODERNA), MRNA, LNP-S, PF, 100 MCG/0.5 ML DOSE 1 2020 207 complet ed MOD; [id number]; 1 [place] TDAP 2019 115 complet ed Urgent Care 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 Administe red by: ORVILLE IRELAND (FVN=[phone]). Partner 7 Lot#: [id number] Mfr: Sanofi Pasteur; Dosage: 0.5 [facility] INFLUENZA, SEASONAL, INJECTABLE 2018 141 complet ed [facility] [place] [facility] INFLUENZA, SEASONAL, INJECTABLE 2017 141 complet ed [facility] [place] [facility] INFLUENZA, SEASONAL, INJECTABLE 2016 141 complet ed [facility] INFLUENZA, SEASONAL, INJECTABLE 2014 NONE 141 complet ed Completed Series, [place] PNEUMOCOCCAL CONJUGATE PCV 13 2014 133 complet ed [place] FLU,3 YRS (HISTORICAL) 2013 88 complet ed [facility] FLU,3 YRS (HISTORICAL) 2012 88 complet ed [facility] FLU,3 YRS (HISTORICAL) 2011 88 complet ed Site: Right Deltoid [facility] ZOSTER (SHINGLES) (HISTORICAL) 2011 121 complet ed [place] PNEUMOCOCCAL, UNSPECIFIED FORMULATION 2011 109 complet ed [place] FLU,3 YRS (HISTORICAL) 2010 88 complet ed Site: Left Deltoid [place] TD(ADULT) UNSPECIFIED FORMULATION 2010 139 complet ed [facility] TDAP 2010 115 complet ed [facility] FLU,3 YRS (HISTORICAL) 2009 88 complet ed Site: Right Deltoid [place] DTAP, UNSPECIFIED FORMULATION 2009 107 complet ed [facility] PNEUMOCOCCAL, UNSPECIFIED FORMULATION 2005 109 complet ed [facility] TD(ADULT) UNSPECIFIED FORMULATION 2004 139 complet ed Rt Eyebrow laceratio n w/ scope of rifle [facility] Results Combined list of recent chemistry, hematology and other laboratory results from Department of Defense and Veterans Affairs, ranging from 15 months to all on record, depending upon the facility. Order Name Results Value Reference Range Date Interpretation Specimen Comments Source HEMOGLOBI N A1C PANEL HEMOGLOBIN A1C/HEMOGLO BIN.TOTAL IN BLOOD BY HPLC 5.7 4.0 - 5.6 11/01 H Specimen Type: BLOOD Comment: Values obtained from A1C measurement s can vary. For atypical A1C assays, a reported value of 7.0 could actually be between 6.72 and 7.28 if measured by a reference method. A reported value of 9.0 could actually be between 8.73 and 9.27. Ref: http://www. ngsp.org/[place] Pdata.asp Ordering Provider: CHARIS ALMAZAN Report Released Date/Time: Oct 25, 2023 01:13 PM Reporting Lab: [facility] [address] [facility] [address] Performing Lab: [facility] [address] [place] LIPID PANEL FASTING CHOLESTEROL [MASS/VOLUM E] IN SERUM OR PLASMA 181 mg/dL 11/01 Specimen Type: SERUM No comment entered. Ordering Provider: CHARIS ALMAZAN Report Released Date/Time: Oct 25, 2023 01:13 PM Reporting Lab: [facility] [address] [facility] [address] Performing Lab: [address] [address] [place] LIPID PANEL FASTING TRIGLYCERID E [MASS/VOLUM E] IN SERUM OR PLASMA 92 mg/dL 0 - 150 11/01 Specimen Type: SERUM No comment entered. Ordering Provider: CHARIS ALMAZAN Report Released Date/Time: Oct 25, 2023 01:13 PM Reporting Lab: [facility] [address] [address] Performing Lab: [facility] [address] [address] [place] LIPID PANEL FASTING CHOLESTEROL IN LDL [MASS/VOLUM E] IN SERUM OR PLASMA BY CALCULATION 95 mg/dL 0 - 129 11/01 Specimen Type: SERUM No comment entered. Ordering Provider: CHARIS ALMAZAN Report Released Date/Time: Oct 25, 2023 01:13 PM Reporting Lab: [facility] [address] [address] Performing Lab: [facility] [address] [address] [place] LIPID PANEL FASTING CHOLESTEROL .TOTAL/CHOL ESTEROL IN HDL [MASS RATIO] IN SERUM OR PLASMA 2.7 11/01 Specimen Type: SERUM No comment entered. Ordering Provider: CHARIS ALMAZAN Report Released Date/Time: Oct 25, 2023 01:13 PM Reporting Lab: [facility] [address] [address] Performing Lab: [facility] [address] [facility] [address] [place] LIPID PANEL FASTING CHOLESTEROL IN HDL [MASS/VOLUM E] IN SERUM OR PLASMA 68 mg/dL 40 - 60 11/01 H Specimen Type: SERUM No comment entered. Ordering Provider: CHARIS ALMAZAN Report Released Date/Time: Oct 25, 2023 01:13 PM Reporting Lab: [facility] [address] [address] Performing Lab: [facility] [address] [place] BASIC METABOLIC PANEL (fasting) UREA NITROGEN [MASS/VOLUM E] IN SERUM OR PLASMA 25 mg/dL 7 - 25 11/01 Specimen Type: SERUM No comment entered. Ordering Provider: CHARIS ALMAZAN Report Released Date/Time: Oct 25, 2023 01:13 PM Reporting Lab: [facility] [address] [address] Performing Lab: [facility] [address] [place] BASIC METABOLIC PANEL (fasting) GLUCOSE [MASS/VOLUM E] IN SERUM OR PLASMA 109 mg/dL 65 - 100 11/01 H Specimen Type: SERUM No comment entered. Ordering Provider: CHARIS ALMAZAN Report Released Date/Time: Oct 25, 2023 01:13 PM Reporting Lab: [facility] [address] [address] Performing Lab: [facility] [address] [place] BASIC METABOLIC PANEL (fasting) SODIUM [MOLES/VOLU ME] IN SERUM OR PLASMA 137 mmol/L 135 - 145 11/01 Specimen Type: SERUM No comment entered. Ordering Provider: CHARIS ALMAZAN Report Released Date/Time: Oct 25, 2023 01:13 PM Reporting Lab: [facility] [address] [address] Performing Lab: [facility]TR[facility] [address] [address] [place] BASIC METABOLIC PANEL (fasting) POTASSIUM [MOLES/VOLU ME] IN SERUM OR PLASMA 4.3 mmol/L 3.5 - 5.0 11/01 Specimen Type: SERUM No comment entered. Ordering Provider: CHAIRS ALMAZAN Report Released Date/Time: Oct 25, 2023 01:13 PM Reporting Lab: [facility]TR[facility] [address] [address] Performing Lab: [facility]TRN [facility] [address] [address] [place] BASIC METABOLIC PANEL (fasting) CHLORIDE [MOLES/VOLU ME] IN SERUM OR PLASMA 104 mmol/L 100 - 110 11/01 Specimen Type: SERUM No comment entered. Ordering Provider: CHARIS ALMAZAN Report Released Date/Time: Oct 25, 2023 01:13 PM Reporting Lab: [facility]TR[facility] [address] [address] Performing Lab: [facility] SYSTEMTRN [facility] [address] [address] [place] BASIC METABOLIC PANEL (fasting) CARBON DIOXIDE, TOTAL [MOLES/VOLU ME] IN SERUM OR PLASMA 25 meq/L 20 - 30 11/01 Specimen Type: SERUM No comment entered. Ordering Provider: CHARIS ALMAZAN Report Released Date/Time: Oct 25, 2023 01:13 PM Reporting Lab: [facility]TRN [facility] [address] [address] Performing Lab: [facility] SYSTEMTRN [facility] [address] [address] [place] BASIC METABOLIC PANEL (fasting) CREATININE [MASS/VOLUM E] IN SERUM OR PLASMA 1.32 mg/dL 0.50 - 1.40 11/01 Specimen Type: SERUM No comment entered. Ordering Provider: CHARIS ALMAZAN Report Released Date/Time: Oct 25, 2023 01:13 PM Reporting Lab: [facility]ITALRHUN[facility] SYSTEMTRN [address] [address] Performing Lab: [facility]ITALRL [facility] [place] [facility] [address] [facility] [address] [place] BASIC METABOLIC PANEL (fasting) GLOMERULAR FILTRATION RATE/1.73 SQ M.PREDICTED [VOLUME RATE/AREA] IN SERUM, PLASMA OR BLOOD BY CREATININE- BASED FORMULA (CKD-EPI 2020) 54 mL/min 60 11/01 L Specimen Type: SERUM No comment entered. Ordering Provider: CHARIS ALMAZAN Report Released Date/Time: Oct 25, 2023 01:13 PM Reporting Lab: [facility] [place] [facility] [address] [facility] [address] Performing Lab: [facility] [place] [address] [address] [place] LIVER FUNCTION PROTEIN [MASS/VOLUM E] IN SERUM OR PLASMA 6.7 g/dL 6.0 - 8.3 11/01 Specimen Type: SERUM No comment entered. Ordering Provider: CHARIS ALMAZAN Report Released Date/Time: Oct 25, 2023 01:13 PM Reporting Lab: [facility] [place] [facility] [address] [facility] [address] Performing Lab: [place] [facility] [place] [facility] [address] [address] [place] LIVER FUNCTION ALBUMIN [MASS/VOLUM E] IN SERUM OR PLASMA 3.8 g/dL 3.5 - 5.0 11/01 Specimen Type: SERUM No comment entered. Ordering Provider: CHARIS ALMAZAN Report Released Date/Time: Oct 25, 2023 01:13 PM Reporting Lab: [facility] [place] [facility] [address] [facility] [address] Performing Lab: [facility] [place] [address] [address] [place] LIVER FUNCTION ALKALINE PHOSPHATASE [ENZYMATIC ACTIVITY/VO LUME] IN SERUM OR PLASMA 64 U/L 40 - 150 11/01 Specimen Type: SERUM No comment entered. Ordering Provider: CHARIS ALMAZAN Report Released Date/Time: Oct 25, 2023 01:13 PM Reporting Lab: [facility] [facility] [address] [facility] [address] Performing Lab: [place] [facility] [address] [address] [place] LIVER FUNCTION ASPARTATE AMINOTRANSF ERASE [ENZYMATIC ACTIVITY/VO LUME] IN SERUM OR PLASMA 18 U/L 5 - 34 11/01 Specimen Type: SERUM No comment entered. Ordering Provider: CHARIS ALMAZAN Report Released Date/Time: Oct 25, 2023 01:13 PM Reporting Lab: [place] [facility] [address] [address] Performing Lab: [facility]ITALRL [facility] [address] [address] [place] LIVER FUNCTION ALANINE AMINOTRANSF ERASE [ENZYMATIC ACTIVITY/VO LUME] IN SERUM OR PLASMA 15 U/L 11/01 Specimen Type: SERUM No comment entered. Ordering Provider: CHARIS ALMAZAN Report Released Date/Time: Oct 25, 2023 01:13 PM Reporting Lab: [facility]RL TRN [address] [address] Performing Lab: [facility]ITALRL TRN [address] [address] [place] LIVER FUNCTION BILIRUBIN.T OTAL [MASS/VOLUM E] IN SERUM OR PLASMA 0.5 mg/dL 0.2 - 1.2 11/01 Specimen Type: SERUM No comment entered. Ordering Provider: CHARIS ALMAZAN Report Released Date/Time: Oct 25, 2023 01:13 PM Reporting Lab: [facility] TR[facility] [address] [address] Performing Lab: [facility]ITALRL [facility] [address] [address] [place] TSH THYROTROPIN [UNITS/VOLU ME] IN SERUM OR PLASMA 1.26 u[IU]/ mL 0.35 - 5.00 11/01 Specimen Type: SERUM No comment entered. Ordering Provider: CHARIS ALMAZAN Report Released Date/Time: Oct 25, 2023 01:13 PM Reporting Lab: [facility] [place] [facility] [address] [facility] [address] Performing Lab: [facility]ITALRL TRN [facility]ITAL[facility] [address] [facility] [address] [place] CBC AND DIFF (AUTO) LEUKOCYTES [#/VOLUME] IN BLOOD BY AUTOMATED COUNT 5.92 10*3/u L 4.50 - 11.00 11/01 Specimen Type: BLOOD No comment entered. Ordering Provider: CHARIS ALMAZAN Report Released Date/Time: Oct 25, 2023 01:13 PM Reporting Lab: [facility] [place] [facility] [address] [facility] [address] Performing Lab: [facility]ITALRHUNTSVIL[facility] SYSTEMTRN [facility]PITALUSETS [address] [address] [place] CBC AND DIFF (AUTO) ERYTHROCYTE S [#/VOLUME] IN BLOOD BY AUTOMATED COUNT 4.30 10*6/u L 4.23 - 5.66 11/01 Specimen Type: BLOOD No comment entered. Ordering Provider: CHARIS ALMAZAN Report Released Date/Time: Oct 25, 2023 01:13 PM Reporting Lab: [facility]ITALRL TRN [facility]ITALUSETS [address] [address] Performing Lab: [facility]ITALRHUNTSV[facility] SYSTEMTRN [facility]ITALUSETS [address] [address] [place] CBC AND DIFF (AUTO) HEMOGLOBIN [MASS/VOLUM E] IN BLOOD 13.4 g/dL 12.8 - 17 11/01 Specimen Type: BLOOD No comment entered. Ordering Provider: CHARIS ALMAZAN Report Released Date/Time: Oct 25, 2023 01:13 PM Reporting Lab: [facility]ITALRHUNTSV[facility] SYSTEMTRN [facility]ITALUSETS [address] [address] Performing Lab: [facility]ITALRHUNTS[facility] SYSTEMTRN [facility]ITALUSETS [address] [address] [place] CBC AND DIFF (AUTO) HEMATOCRIT [VOLUME FRACTION] OF BLOOD BY AUTOMATED COUNT 40.4 39.2 - 50.4 11/01 Specimen Type: BLOOD No comment entered. Ordering Provider: CHARIS ALMAZAN Report Released Date/Time: Oct 25, 2023 01:13 PM Reporting Lab: [facility]ITALRHUNTSV[facility] SYSTEMTRN [facility] [address] [facility] [address] Performing Lab: [facility] HOSPITALRD.W. MCMILL[facility] HOSPITALN [facility]ITALUSEF [facility] [address] [facility] [address] [place] CBC AND DIFF (AUTO) MCV [ENTITIC VOLUME] BY AUTOMATED COUNT 94.0 fL 82 - 99 11/01 Specimen Type: BLOOD No comment entered. Ordering Provider: CHARIS ALMAZAN Report Released Date/Time: Oct 25, 2023 01:13 PM Reporting Lab: [facility] HOSPITALRD.W. MCMILL[facility] MEMORIAL HOSPITALN [facility] [address] [facility] [address] Performing Lab: [facility] [address] [address] [place] CBC AND DIFF (AUTO) MCHC [MASS/VOLUM E] BY AUTOMATED COUNT 33.2 g/dL 30.8 - 35.1 11/01 Specimen Type: BLOOD No comment entered. Ordering Provider: CHARIS ALMAZAN Report Released Date/Time: Oct 25, 2023 01:13 PM Reporting Lab: [facility] [address] [address] Performing Lab: [facility] [address] [address] [place] CBC AND DIFF (AUTO) PLATELETS [#/VOLUME] IN BLOOD BY AUTOMATED COUNT 261 10*3/u L 140 - 360 11/01 Specimen Type: BLOOD No comment entered. Ordering Provider: CHARIS ALMAZAN Report Released Date/Time: Oct 25, 2023 01:13 PM Reporting Lab: [facility] [address] [address] Performing [facility]: [facility] [address] [address] [place] CBC AND DIFF (AUTO) ERYTHROCYTE DISTRIBUTIO N WIDTH [RATIO] BY AUTOMATED COUNT 14.4 12.0 - 16.0 11/01 Specimen Type: BLOOD No comment entered. Ordering Provider: CHARIS ALMAZAN Report Released Date/Time: Oct 25, 2023 01:13 PM Reporting Lab: [facility] [place] [address] [address] Performing Lab: [place] [facility] [place] [address] [address] [place] CBC AND DIFF (AUTO) MONOCYTES [#/VOLUME] IN BLOOD BY AUTOMATED COUNT 0.67 10*3/u L 0.30 - 1.10 11/01 Specimen Type: BLOOD No comment entered. Ordering Provider: CHARIS ALMAZAN Report Released Date/Time: Oct 25, 2023 01:13 PM Reporting Lab: [facility]TR[facility] [address] [address] Performing Lab: [facility]ITALRL TRN [facility] [address] [place] CBC AND DIFF (AUTO) MCH [ENTITIC MASS] BY AUTOMATED COUNT 31.2 pg 26.2 - 32.6 11/01 Specimen Type: BLOOD No comment entered. Ordering Provider: CHARIS ALMAZAN Report Released Date/Time: Oct 25, 2023 01:13 PM Reporting Lab: [facility] SYSTEMTRN [address] [address] Performing Lab: [facility] SYSTEMTRN [facility]PITALUSETS [address] [address] [place] CBC AND DIFF (AUTO) NEUTROPHILS /100 LEUKOCYTES IN BLOOD BY AUTOMATED COUNT 39.4 43.7 - 75.8 11/01 L Specimen Type: BLOOD No comment entered. Ordering Provider: CHARIS ALMAZAN Report Released Date/Time: Oct 25, 2023 01:13 PM Reporting Lab: [facility]TRN [place] [address] [address] Performing Lab: [facility]TRN [facility] [address] [place] CBC AND DIFF (AUTO) LYMPHOCYTES /100 LEUKOCYTES IN BLOOD BY AUTOMATED COUNT 38.5 14.0 - 42.3 11/01 Specimen Type: BLOOD No comment entered. Ordering Provider: CHARIS ALMAZAN Report Released Date/Time: Oct 25, 2023 01:13 PM Reporting Lab: [facility] SYSTEMTRN [address] [address] Performing Lab: [facility]ITALRD.[facility]N [address] [address] [place] CBC AND DIFF (AUTO) MONOCYTES/1 00 LEUKOCYTES IN BLOOD BY AUTOMATED COUNT 11.3 5.1 - 13.7 11/01 Specimen Type: BLOOD No comment entered. Ordering Provider: CHARIS ALMAZAN Report Released Date/Time: Oct 25, 2023 01:13 PM Reporting Lab: [facility]N [address] [address] Performing Lab: [facility]ITALRD.[facility]ITALN [address] [address] [place] CBC AND DIFF (AUTO) EOSINOPHILS /100 LEUKOCYTES IN BLOOD BY AUTOMATED COUNT 9.5 0.4 - 6.8 11/01 H Specimen Type: BLOOD No comment entered. Ordering Provider: CHARIS ALMAZAN Report Released Date/Time: Oct 25, 2023 01:13 PM Reporting Lab: [facility]ITALRD.[facility]N [address] [address] Performing Lab: [facility]ITALRD.[facility]N [address] [address] [place] CBC AND DIFF (AUTO) BASOPHILS/1 00 LEUKOCYTES IN BLOOD BY AUTOMATED COUNT 1.0 0.1 - 2.0 11/01 Specimen Type: BLOOD No comment entered. Ordering Provider: CHARIS ALMAZAN Report Released Date/Time: Oct 25, 2023 01:13 PM Reporting Lab: [facility] SYSTEMTRN [address] [address] Performing Lab: [facility]ITALRD.[facility]ITALN [address] [address] [place] CBC AND DIFF (AUTO) NEUTROPHILS [#/VOLUME] IN BLOOD BY AUTOMATED COUNT 2.33 10*3/u L 2.20 - 7.60 11/01 Specimen Type: BLOOD No comment entered. Ordering Provider: STELEA,CHARIS EN F Report Released Date/Time: Oct 25, 2023 01:13 PM Reporting Lab: [facility]ITAL[facility] SYSTEMTRN [facility]ITALUSETS [address] [address] Performing Lab: [facility]ITALRL TRN [facility] [address] [place] CBC AND DIFF (AUTO) LYMPHOCYTES [#/VOLUME] IN BLOOD BY AUTOMATED COUNT 2.28 10*3/u L 1.00 - 3.20 11/01 Specimen Type: BLOOD No comment entered. Ordering Provider: CHARIS ALMAZAN F Report Released Date/Time: Oct 25, 2023 01:13 PM Reporting Lab: [facility]ITALRH[facility] SYSTEMTRN [address] [address] Performing Lab: [facility]ITALRD.[facility]ITALN [address] [address] [place] CBC AND DIFF (AUTO) EOSINOPHILS [#/VOLUME] IN BLOOD BY AUTOMATED COUNT 0.56 10*3/u L 0.03 - 0.44 11/01 H Specimen Type: BLOOD No comment entered. Ordering Provider: CHARIS ALMAZAN F Report Released Date/Time: Oct 25, 2023 01:13 PM Reporting Lab: [facility]ITALRHUN[facility] SYSTEMTRN [facility] [address] Performing Lab: [facility]ITALRL TRN [facility] [address] [place] CBC AND DIFF (AUTO) BASOPHILS [#/VOLUME] IN BLOOD BY AUTOMATED COUNT 0.06 10*3/u L 0.01 - 0.13 11/01 Specimen Type: BLOOD No comment entered. Ordering Provider: CHARIS ALMAZAN F Report Released Date/Time: Oct 25, 2023 01:13 PM Reporting Lab: [facility]ITALRHUN[facility] SYSTEMTRN [facility]PITALUSETS [address] [address] Performing Lab: [facility]ITALRL TRN [facility] [address] [place] CBC AND DIFF (AUTO) IMMATURE GRANULOCYTE S/100 LEUKOCYTES IN BLOOD BY AUTOMATED COUNT 0.3 0.0 - 0.7 11/01 Specimen Type: BLOOD No comment entered. Ordering Provider: CHARIS ALMAZAN Report Released Date/Time: Oct 25, 2023 01:13 PM Reporting Lab: [address] [address] Performing Lab: [address] [address] [place] CBC AND DIFF (AUTO) IMMATURE GRANULOCYTE S [#/VOLUME] IN BLOOD 0.02 10*3/u L 0.00 - 0.06 11/01 Specimen Type: BLOOD No comment entered. Ordering Provider: CHARIS ALMAZAN Report Released Date/Time: Oct 25, 2023 01:13 PM Reporting Lab: [address] [address] Performing Lab: [address] [address] [place] CBC AND DIFF (AUTO) NRBC % 0.0 0.0 - 0.0 11/01 Specimen Type: BLOOD No comment entered. Ordering Provider: CHARIS ALMAZAN Report Released Date/Time: Oct 25, 2023 01:13 PM Reporting Lab: [address] [address] Performing Lab: [address] [address] [place] CBC AND DIFF (AUTO) NRBC, ABS 0.00 10*3/u L 0.00 - 0.00 11/01 Specimen Type: BLOOD No comment entered. Ordering Provider: CHARIS ALMAZAN Report Released Date/Time: Oct 25, 2023 01:13 PM Reporting Lab: [address] [address] Performing Lab: [address] [address] [place] VITAMIN D 25-OH (Therapy monitor) 25-HYDROXYV ITAMIN D3 [MASS/VOLUM E] IN SERUM OR PLASMA 98 ng/mL 30 - 100 05/09 Specimen Type: SERUM Comment: Vitamin D, 25-Hydroxy reports concentrati ons of two common forms, 25-OHD2 and 25-OHD3. 25-OHD3 indicates both endogenous production and supplementa tion. 25-OHD2 is an indicator of exogenous sources such as diet or supplementa tion. Therapy is based on measurement of Total 25-OHD, with levels <20 ng/mL indicative of Vitamin D deficiency, while levels between 20 ng/mL and 30 ng/mL suggest insufficien cy. Optimal levels are > or = 30 ng/mL. For additional information , please refer to http://educ ation.[facility] .Okta/faq/FA Q199 (This link is being provided for information al/ educational purposes only.) This test was developed and its analytical performance characteris tics have been determined by [facility] [place], [place]. It has not been cleared or approved by the U.S. Food and Drug Administrat ion. This assay has been validated pursuant to the CLIA regulations and is used for clinical purposes. This test was developed and its analytical performance characteris tics have been determined by [facility] [place] [place]. It has not been cleared or approved by the U.S. Food and Drug Administrat ion. This assay has been validated pursuant to the CLIA regulations and is used for clinical purposes. Test Performed by [facility], [facility] [place], [address] [place] [address] Michael Hughes M.D., Ph.D., Director of Laboratorie s , CLIA [id number] TEST PERFORMED AT: , Ordering Provider: SHU ISAAC Report Released Date/Time: May 11, 2022 10:35 AM Reporting Lab: [facility] [employer] [facility] [address] [facility] [address] Performing Lab: [facility] [employer] [facility] [id number] [place] [address] VITAMIN D 25-OH (Therapy monitor) 25-HYDROXYV ITAMIN D3 [MASS/VOLUM E] IN SERUM OR PLASMA 98 ng/mL 05/09 Specimen Type: SERUM Comment: Vitamin D, 25-Hydroxy reports concentrati ons of two common forms, 25-OHD2 and 25-OHD3. 25-OHD3 indicates both endogenous production and supplementa tion. 25-OHD2 is an indicator of exogenous sources such as diet or supplementa tion. Therapy is based on measurement of Total 25-OHD, with levels <20 ng/mL indicative of Vitamin D deficiency, while levels between 20 ng/mL and 30 ng/mL suggest insufficien cy. Optimal levels are > or = 30 ng/mL. For additional information , please refer to http://educ ation.[facility] .com/faq/FA Q199 (This link is being provided for information al/ educational purposes only.) This test was developed and its analytical performance characteris tics have been determined by [facility] [place] [place]. It has not been cleared or approved by the U.S. Food and Drug Administrat ion. This assay has been validated pursuant to the CLIA regulations and is used for clinical purposes. This test was developed and its analytical performance characteris tics have been determined by [facility] [place] [place]. It has not been cleared or approved by the U.S. Food and Drug Administrat ion. This assay has been validated pursuant to the CLIA regulations and is used for clinical purposes. Test Performed by [facility], [facility], [address] [place] [address] Michael Hughes M.D., Ph.D., Director of Laboratorie s , CLIA [id number] TEST PERFORMED AT: , Ordering Provider: SHU ISAAC Report Released Date/Time: May 11, 2022 10:35 AM Reporting Lab: [facility] [employer] [facility] [address] [facility] [address] Performing Lab: [facility] [employer] [facility] [address] [address] [facility] VITAMIN D 25-OH (Therapy monitor) CALCIFEROL (VIT D2) [MASS/VOLUM E] IN SERUM OR PLASMA <4ng/m L 05/09 Specimen Type: SERUM Comment: Vitamin D, 25-Hydroxy reports concentrati ons of two common forms, 25-OHD2 and 25-OHD3. 25-OHD3 indicates both endogenous production and supplementa tion. 25-OHD2 is an indicator of exogenous sources such as diet or supplementa tion. Therapy is based on measurement of Total 25-OHD, with levels <20 ng/mL indicative of Vitamin D deficiency, while levels between 20 ng/mL and 30 ng/mL suggest insufficien cy. Optimal levels are > or = 30 ng/mL. For additional information , please refer to http://educ ation.[facility] .Okta/faq/FA Q199 (This link is being provided for information al/ educational purposes only.) This test was developed and its analytical performance characteris tics have been determined by [facility] [place] [place]. It has not been cleared or approved by the U.S. Food and Drug Administrat ion. This assay has been validated pursuant to the CLIA regulations and is used for clinical purposes. This test was developed and its analytical performance characteris tics have been determined by [facility] [place] [place]. It has not been cleared or approved by the U.S. Food and Drug Administrat ion. This assay has been validated pursuant to the CLIA regulations and is used for clinical purposes. Test Performed by [facility], [facility], [address] [place] [address] Michael Hughes M.D., Ph.D., Director of Laboratorie s , CLIA [id number] TEST PERFORMED AT: , Ordering Provider: SHU ISAAC Report Released Date/Time: May 11, 2022 10:35 AM Reporting Lab: [facility] [employer] (PR[employer]) [facility] [address] [facility] [address] Performing Lab: [place] [employer] (PRN) [facility] [address] [address] [facility] VITAMIN B12 COBALAMIN (VITAMIN B12) [MASS/VOLUM E] IN SERUM OR PLASMA 1318 pg/mL 200 - 900 05/09 H Specimen Type: SERUM No comment entered. Ordering Provider: SHU ISAAC Report Released Date/Time: May 11, 2022 10:35 AM Reporting Lab: [facility]ocalt[employer]F [facility] [address] [facility] [address] Performing Lab: [facility] [address] [facility] [address] [place] LIPID PANEL, NON FASTING CHOLESTEROL [MASS/VOLUM E] IN SERUM OR PLASMA 228 mg/dL 05/09 H Specimen Type: SERUM No comment entered. Ordering Provider: SHU ISAAC Report Released Date/Time: May 11, 2022 10:35 AM Reporting Lab: [facility] [address] [facility] [address] Performing Lab: [address] [address] [place] LIPID PANEL, NON FASTING TRIGLYCERID E [MASS/VOLUM E] IN SERUM OR PLASMA 88 mg/dL 0 - 150 05/09 Specimen Type: SERUM No comment entered. Ordering Provider: SHU ISAAC Report Released Date/Time: May 11, 2022 10:35 AM Reporting Lab: [address] [address] Performing Lab: [facility] [address] [address] [place] LIPID PANEL, NON FASTING CHOLESTEROL IN LDL [MASS/VOLUM E] IN SERUM OR PLASMA BY CALCULATION 135 mg/dL 0 - 129 05/09 H Specimen Type: SERUM No comment entered. Ordering Provider: SHU ISAAC Report Released Date/Time: May 11, 2022 10:35 AM Reporting Lab: [address] [address] Performing Lab: [address] [address] [place] LIPID PANEL, NON FASTING CHOLESTEROL .TOTAL/CHOL ESTEROL IN HDL [MASS RATIO] IN SERUM OR PLASMA 3.0 05/09 Specimen Type: SERUM No comment entered. Ordering Provider: SHU ISAAC Report Released Date/Time: May 11, 2022 10:35 AM Reporting Lab: [address] [address] Performing Lab: [facility] [address] [facility] [address] [email or web address] LIPID PANEL, NON FASTING CHOLESTEROL IN HDL [MASS/VOLUM E] IN SERUM OR PLASMA 75 mg/dL 40 - 60 05/09 H Specimen Type: SERUM No comment entered. Ordering Provider: SHU ISAAC Report Released Date/Time: May 11, 2022 10:35 AM Reporting Lab: [address] [address] Performing Lab: [address] [address] [email or web address] HEMOGLOBI N A1C PANEL HEMOGLOBIN A1C/HEMOGLO BIN.TOTAL IN BLOOD BY HPLC 6.3 4.0 - 5.6 05/09 H Specimen Type: BLOOD Comment: Values obtained from A1C measurement s can vary. For atypical A1C assays, a reported value of 7.0 could actually be between 6.72 and 7.28 if measured by a reference method. A reported value of 9.0 could actually be between 8.73 and 9.27. Ref: http://www. ngsp.org/[place] Pdata.asp Ordering Provider: SHU ISAAC Report Released Date/Time: May 11, 2022 10:35 AM Reporting Lab: [address] [address] Performing Lab: [address] [address] [email or web address] Vital Signs Combined list of inpatient and outpatient Vital Signs from Department of Defense and Veterans Affairs, ranging from 12 months to all on record, depending upon the facility. Vital Sign Value Date Comments Source SYSTOLIC BLOOD PRESSURE 120 05/14/2024 09:40:27 [place] DIASTOLIC BLOOD PRESSURE 70 05/14/2024 09:40:27 [place] PULSE OXIMETRY 95 05/14/2024 09:40:27 S ALHAJI WEIGHT 98 05/14/2024 09:40:27 [facility] [place] BMI 17 kg/m2 05/14/2024 09:40:27 [facility] HEIGHT 63 05/14/2024 09:40:27 A[facility] TEMPERATURE 96.9 05/14/2024 09:40:27 [place] PULSE 98 05/14/2024 09:40:27 ABDI MCNE[facility] RESPIRATION 19 05/14/2024 09:40:27 BRIAN AUGUST SYSTOLIC BLOOD PRESSURE 127 11/14/2023 08:59:41 [place] DIASTOLIC BLOOD PRESSURE 67 11/14/2023 08:59:41 [place] PULSE OXIMETRY 96 11/14/2023 08:59:41 S ALHAJI WEIGHT 100 11/14/2023 08:59:41 [place] BMI 18 kg/m2 11/14/2023 08:59:41 [place] PULSE 60 11/14/2023 08:59:41 ABDI MCNEAL Encounters Combined list of: 1) Encounters from Department of Veterans Affairs facilities going backup to the last 18 months, not all [place] inpatient encounters are included; 2) Encounters from the Department of [facility] facilities going backup to 280 months. Location Location Details Encounter Type Encounter Number Reason For Visit Attending Provider ADM Date DC Date Status Disposition Source [facility] En[facility] [id number] 01/29 [facility] FIT SPECTACLES MONOFOCAL [id number] Diagnos is: ICD-10- CM Z46.0 Encount er for fit/adj st of spectac les and contact lenses SHERWIN SAENZ 01/29 [facility] Encounter [id number] 02/01 [facility] Encounter [id number] 03/15 [facility] Encounter [id number] 04/02 [facility] Encounter [id number] 04/24 [facility] En[facility] [id number] 04/26 [facility] Encounter [id number] 04/26 [facility] En[facility] [id number] 05/02 [facility] [place]P EST MOD 30 MIN [id number] Diagnos is: ICD-10- CM 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 STELEA,CAR MEN F 05/16 [place] [facility] En[facility] [id number] 05/16 [facility] En[facility] [id number] 05/18 [facility] En[facility] [id number] 05/28 [facility] Encounter [id number] 07/08 [facility] En[facility] [id number] 08/05 [facility] En[facility] [id number] 08/06 [facility] Encounter [id number] 08/14 [facility] INTRM OPH EXAM EST PATIENT [id number] Diagnos is: ICD-10- CM 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, right eye, early dry stage SHU NICHOLE 08/30 [facility] FIT SPECTACLES MONOFOCAL [id number] Diagnos is: ICD-10- CM Z46.0 Encount er for fit/adj st of spectac les and contact lenses SHU NICHOLE 08/30 [facility] Out[facility] Encounter [id number] 09/03 [facility] Encounter [id number] 11/04 [facility] Encounter [id number] 11/05 [facility] O/P EST MOD 30 MIN [id number] Diagnos is: ICD-10- CM R73.03 Prediab etes STELEA,CAR MEN F 11/13 [place] [facility] Out[facility] Encounter [id number] 11/20 [facility] Encounter [id number] 12/31 [facility] Encounter [id number] 01/08 [facility] En[facility] [id number] 1.02/12 [facility] Encounter [id number] 02/21 [facility] Encounter [id number] 02/24 [facility] En[facility] [id number] 03/12 [facility] O/P EST HI 40 MIN [id number] Diagnos is: ICD-10- CM E78.5 Hyperli pidemia , unspeci fied FAMILIA RUTH NDRA C 05/14 [place] [facility] Out[facility] Encounter [id number] 05/14 [facility] En[facility] [id number] 05/21 [facility] Out[facility] Encounter [id number] 05/21 [facility] Social History Combined list of available smoking, tobacco, and other social history from Department of Defense and Veterans Affairs facilities. Social History Type Response Date Comment Source Tobacco smoking status [facility] VA-TOBACCO USE FORMER CIGARETTES 05/14/2024 [facility] History of tobacco use VA-TOBACCO NEVER USED OTHER TYPE 05/14/2024 [facility] History of tobacco use VA-TOBACCO USER SOME DAYS 05/16/2023 [place] History of tobacco use VA-TOBACCO USER SOME DAYS 05/11/2022 [place] History of tobacco use VA-TOBACCO FORMER USER 02/28/2021 [place] History of tobacco use VA-TOBACCO USER SOME DAYS 01/08/2020 [place] History of tobacco use VA-TOBACCO FORMER USER 07/27/2017 [place] History of tobacco use CURRENT SMOKER 07/27/2017 [place] History of tobacco use QUIT TOBACCO USE IN PAST YEAR 09/04/2016 stopped smoking 4 weeks ago was smoking a pack a day [place] History of tobacco use CURRENT SMOKER 08/24/2015 6-10 cigarettes a day [place] History of tobacco use V1-PT DECLINES TOBACCO CESSATION MEDS 08/06/2014 [place] History of tobacco use CURRENT SMOKER 02/20/2014 1/2 PACK A DAY [place] History of tobacco use CURRENT SMOKER 03/21/2013 Pt. stated 10-15 cigarettes a day!. [place] History of tobacco use V1-PT THINKING ABOUT QUIT TOBACCO USE 09/04/2012 [place] History of tobacco use CURRENT SMOKER 03/19/2012 sto [place] History of tobacco use QUIT TOBACCO USE 1-7 YEARS AGO 02/07/2011 [place] History of tobacco use V1-PT NOT INTERESTED IN QUIT TOBACCO USE 07/20/2010 [place] History of tobacco use CURRENT SMOKER 01/14/2010 Pt. stated he smokes a pack a day!! [place] Plan of Care List of future care activities from [facility] facilities. Additional future care activities may be listed in the Assessment and Plan section. Date/Time Care Activity Care Activity Detail Facili ty 07/31/2024 AMBULATORY - MEDICINE AMBULATORY - MEDICI [facility] [place] [facility] Advance Directives List of completed, amended, or rescinded Advance Directives on record at [facility] facilities. An actual copy of the Directive is not included. Date Advance Directive Provider Source 01/17/2010 ADVANCE DIRECTIVE MONY COSTA
--- OUTSIDE RECORDS SUMMARY | 2024-07-30 08:05 | XMS_ITS ---
Author Organization [facility] Address [address] [place] [id number] Care Team Providers Care Braid Cutter Name Role Phone Chio HERRERA, Carlos Anderson Primary Care Provider Unav ailable Stone Carlos Unavailable [phone] REASON FOR VISIT 07/24/23 appt Encounters Encounter Location Date Provider Diagnosis [facility] [place] [address] [place] [phone] 06/13/2023 Stone Carlos Plan Of Treatment No Information Progress Notes * Yaya EPPSDOB: [birth year] (82 yo M)Acc No.[id number]:06/13/2023 Patient:?Yaya Epps :1940???Age:82 Y???Sex:Male Address:[address] [place] [address], [address] * true * Date:? Generated for Joséi livan/Sharon/eTransmitting on:?07/30/2024 08:04 AM EDT
--- OUTSIDE RECORDS SUMMARY | 2024-07-30 08:05 | XMS_ITS ---
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 Past Treatment and Therapy Plans No past plan information found. Lifetime Dose Tracking * Chemical Lifetime Dose Automatic Entry Manual Entr y Fluoro Time 5.82 minutes 5.82 minutes 0 minutes Radiation - mGy 77.32 mGy 77.32 mGy 0 mGy Resolved Problems Problem Noted Date Diagnosed Date Resolved Date Acute respiratory failure with hypoxemia 08/01/2020 08/07/2020 Hypoxia 07/31/2020 08/07/2020 Other microscopic hematuria 05/31/2020 08/31/2020 Ureteral mass 05/27/2020 08/31/2020
--- OUTSIDE RECORDS SUMMARY | 2024-07-30 08:05 | XMS_ITS | Encounter Summary ---
Author Name [facility] Organization [facility] Address [address] [place] [address] Care Team Providers Care Casing Builder Name Role Phone ANATOLY AWAN Primary Care [...] AETNA POINT OF SERVICE Apr 02, 2009 [id number] SHALOM RADFORD [employer] PHARMACY MANAGEMENT PRESCRIPT ION Apr 02, 2009 [id number] [phone] SHALOM RADFORD [facility] (WNR) MEDICARE ADVANTAGE [facility] (WNR) Apr 02, 2017 [id number] SHALOM RADFORD [facility] (WNR) MEDICARE (M) [facility](W NR) Apr 02, 2015 [id number] SHALOM RADFORD PATIENT MEDICARE (WNR) MEDICARE (M) PART A July 31, 2005 PART A [id number] SHALOM RADFORD PATIENT MEDICARE (WNR) MEDICARE (M) PART B July 31, 2005 PART B [id number] [phone] SHALOM RADFORD PATIENT MEDICARE (WNR) MEDICARE (M) PART A July 31, 2005 PART A [id number] SHALOM RADFROD PATIENT MEDICARE (WNR) MEDICARE (M) PART B July 31, 2005 PART B [id number] [phone] SHALOM RADFORD PATIENT [facility] (DENTAL) DENTAL INSURANCE [place] R PLAN Apr 02, 2018 [id number] [phone] SHALOM RADFORD PATIENT Selected Encounter This section includes the information on record at ME for the Encounter. Date/Time Encounter Type Encounter Description Reason Provider Source Nov 14, 2023 09:00 AM OFFICE O/P EST MOD 30 MIN PRIMARY CARE/MEDICINE ICD-10-CM R73.03 Prediabetes ZANE ALMAZAN Casey Encounter Template Text not used by ME Assessments - Encounter Diagnoses This section includes the primary and secondary diagnoses documented for the Encounter. Date/Time Primary/Secondary Diagnosis Diagnosis Name Provider Source Nov 14, 2023 09:32 AM PRIMARY Prediabetes ZANE ALMAZAN JOELLE Nov 14, 2023 09:32 AM SECONDARY Chronic kidney disease, unspecified ZANE ALMAZAN JOELLE Nov 14, 2023 09:32 AM SECONDARY Chronic obstructive pulmonary disease, unspecified ZANE ALMAZAN JOELLE Nov 14, 2023 09:32 AM SECONDARY Hyperlipidemia, unspecified ZANE ALMAZAN JOELLE Plan of Treatment: Future Appointments (+ 6 months) and Future Tests (+/- 45 days) The Plan of Treatment section includes future care activities for the patient from all ME treatmentfacilities. This section includes future appointments and future orders which are active, pending or scheduled. Future Appointments This section includes appointments that were scheduled to occur 6 months from the date of the Encounter, up to a maximum of 20 appointments. The data comes from all ME treatment facilities. Appointment Date/Time Appointment Type Appointme nt Facility Name May 14, 2024 09:30 AM AMBULATORY - MEDICINE [facility] May 16, 2024 11:30 AM AMBULATORY - MEDICINE [facility] Active, Pending, and Scheduled Orders This section includes a listing of several types of active, pending, and scheduled orders, including clinic medications orders, diagnostic test orders, procedure orders and consult orders; where the start date of the order is 45 days before the date of the Encounter or 45 days after the date of theEncounter. The data comes from all ME treatment facilities. Test Date/Time Test Type Test Details Facility Name Nov 21, 2023 04:30 PM Consult Order COMMUNITY [facility]-VASCULAR SURGERY Cons [employer] Sales Representative's Choice [facility] Lab Results: +/- 30 days of the encounter This section includes the Chemistry and Hematology Lab Results on record with ME for the patient. Radiology Reports and Pathology Reports are provided separately, in subsequent sections. Lab Results This section contains the Chemistry/Hematology Results that were resulted 30 days before or 30 daysafter the date of the Encounter. Date/Time Source Result Type Result - Unit Interpretation Reference Range Specimen Type Comment Nov 02, 2023 07:38 AM [facility] HEMOGLOBIN A1C PANEL BLOOD Specimen T ype: BLOOD Comment: Values obtained from A1C measurements can vary. For atypical A1C assays, a reported value of 7.0 could actually be between 6.72 and 7.28 if measured by a reference method. A reported value of 9.0 could actually be between 8.73 and 9.27. Ref: http://www.ngsp .org/CAPdata.as p Ordering Provider: ZANE ALMAZAN Report Released Date/Time: Oct 25, 2023 01:13 PM Reporting Lab: [facility] [address] [facility] [address] Performing Lab: [address] [address] HEMOGLOBIN A1C 5.7 H 4.0-5.6 Nov 02, 2023 07:38 AM [facility] LIPID PANEL FASTING SERUM Specimen Ty pe: SERUM No comment entered. Ordering Provider: ZANE ALMAZAN Report Released Date/Time: Oct 25, 2023 01:13 PM Reporting Lab: [address] [address] Performing Lab: [address] [address] CHOLESTEROL 181 mg/dL TRIGLYCERIDE 92 mg/dL 0-150 LDL calculated 95 mg/dL 0-129 CHOL/HDL 2.7 HDL CHOLESTEROL 68 mg/dL H 40-60 Nov 02, 2023 07:38 AM [facility] LIVER FUNCTION SERUM Specimen Type: SERUM No comment entered. Ordering Provider: ZANE ALMAZAN Report Released Date/Time: Oct 25, 2023 01:13 PM Reporting Lab: [facility] [address] [address] Performing Lab: [facility] [address] [address] PROTEIN,TOTAL 6.7 g/dL 6.0-8.3 ALBUMIN 3.8 g/dL 3.5-5.0 ALKALINE PHOSPHATASE 64 U/L 40-150 AST 18 U/L 5-34 ALT 15 U/L BILIRUBIN, TOTAL 0.5 mg/dL 0.2-1.2 Nov 02, 2023 07:38 AM [facility] BASIC METABOLIC PANEL (fasting) SERUM Specimen Type: SERUM No comment entered. Ordering Provider: ZANE ALMAZAN Report Released Date/Time: Oct 25, 2023 01:13 PM Reporting Lab: [address] [address] Performing Lab: [address] [address] UREA NITROGEN 25 mg/dL 7-25 GLUCOSE 109 mg/dL H 65-100 SODIUM 137 mmol/L 135-145 POTASSIUM 4.3 mmol/L 3.5-5.0 CHLORIDE 104 mmol/L 100-110 CO2 25 meq/L 20-30 CREATININE, Serum 1.32 mg/dL 0.50-1.40 eGFR(CKD-EPI 2020) 54 mL/min L >60 Nov 02, 2023 07:38 AM [facility] TSH SERUM Sp ecimen Type: SERUM No comment entered. Ordering Provider: ZANE ALMAZAN Report Released Date/Time: Oct 25, 2023 01:13 PM Reporting Lab: [facility] [address] [address] Performing Lab: [address] [address] TSH 1.26 u[IU]/mL 0.35-5.00 Nov 02, 2023 07:38 AM [facility] CBC AND DIFF (AUTO) BLOOD Specimen Ty pe: BLOOD No comment entered. Ordering Provider: ZANE ALMAZAN Report Released Date/Time: Oct 25, 2023 01:13 PM Reporting Lab: [facility] [address] [facility] [address] Performing Lab: [facility] [address] [facility] [address] WBC 5.92 10*3/uL 4.50-11.00 RBC 4.30 10*6/uL 4.23-5.66 HGB 13.4 g/dL 12.8-17 HCT 40.4 39.2-50.4 MCV 94.0 fL 82-99 MCHC 33.2 g/dL 30.8-35.1 PLT 261 10*3/uL 140-360 RDW-CV 14.4 12.0-16.0 MONO, ABS 0.67 10*3/uL 0.30-1.10 MCH 31.2 pg 26.2-32.6 NEUT % 39.4 L 43.7-75.8 LYMPH % 38.5 14.0-42.3 MONO % 11.3 5.1-13.7 EOS % 9.5 H 0.4-6.8 BASO % 1.0 0.1-2.0 NEUT, ABS 2.33 10*3/uL 2.20-7.60 LYMPH, ABS 2.28 10*3/uL 1.00-3.20 EOS, ABS 0.56 10*3/uL H 0.03-0.44 BASO, ABS 0.06 10*3/uL 0.01-0.13 IMMATURE GRAN % 0.3 0.0-0.7 IMMATURE GRAN, ABS 0.02 10*3/uL 0.00-0.0 6 NRBC % 0.0 0.0-0.0 NRBC, ABS 0.00 10*3/uL 0.00-0.00 Vital Signs: All taken on the encounter date This section contains inpatient and outpatient Vital Signs collected on the date of the Encounter. Date/Time Temperature Pulse Blood Pressure Respiratory Rate SP02 Pain Height Weight Body Mass Index Source Nov 14, 2023 08:59 AM 60 127/67 96 100 18 [facility] Social History: Smoking Status (Most current) and Tobacco Use (All prior to encounter date) This section includes the most current, and the historical, smoking and tobacco- related health factors from the ME facility where the Encounter took place. Current Smoking Status This section includes the most current smoking, or tobacco-related health factor, from the ME facility where the Encounter took place. Date/Time Current Smoking Status Comment Facil ity May 16, 2023 11:00 AM VA-TOBACCO USER SOME DAYS [facility] Tobacco Use History This section includes a history of the smoking, or tobacco-related health factors, that were collected on or before the date of the Encounter. The data comes from the ME facility where the Encounter took place. Date/Time Smoking Status/Tobacco Use Comment F acility May 16, 2023 11:00 AM VA-TOBACCO USE 30 YEARS OR MORE [facility] May 16, 2023 11:00 AM VA-TOBACCO USE ADVICE [facility] May 16, 2023 11:00 AM VA-TOBACCO USE CLINICAL STATISTICAL PROGRAMMER NO [facility] May 16, 2023 11:00 AM VA-TOBACCO USE MED NO [facility] May 16, 2023 11:00 AM VA-TOBACCO USER SOME DAYS [facility] May 11, 2022 10:00 AM VA-TOBACCO DOESNT USE WI 30 MIN [facility] May 11, 2022 10:00 AM VA-TOBACCO USE 5 TO 15 YEARS [facility] May 11, 2022 10:00 AM VA-TOBACCO USE ADVICE [facility] May 11, 2022 10:00 AM VA-TOBACCO USE CLINICAL STATISTICAL PROGRAMMER NO [facility] May 11, 2022 10:00 AM VA-TOBACCO USE MED NO [facility] May 11, 2022 10:00 AM VA-TOBACCO USER SOME DAYS [facility] Feb 28, 2021 10:00 AM VA-TOBACCO FORMER USER [facility] Feb 28, 2021 10:00 AM VA-TOBACCO QUIT 1 TO < 5 YRS [facility] Jan 08, 2020 09:00 AM VA-TOBACCO DOESNT USE WI 30 MIN [facility] Jan 08, 2020 09:00 AM VA-TOBACCO USE 30 YEARS OR MORE [facility] Jan 08, 2020 09:00 AM VA-TOBACCO USE ADVICE [facility] Jan 08, 2020 09:00 AM VA-TOBACCO USE CLINICAL STATISTICAL PROGRAMMER NO [facility] Jan 08, 2020 09:00 AM VA-TOBACCO USE MED NO [facility] Jan 08, 2020 09:00 AM VA-TOBACCO USER SOME DAYS [facility] Jul 27, 2017 11:47 AM VA-TOBACCO FORMER USER [facility] Jul 27, 2017 11:47 AM VA-TOBACCO QUIT < 1 YEAR [facility] Jul 27, 2017 10:50 AM CURRENT SMOKER [facility] Jul 27, 2017 10:50 AM V1-PT DECLINES REF TO TOBACCO CESS [facility] Jul 27, 2017 10:50 AM V1-PT DECLINES TOB ACCO CESSATION [facility] Jul 27, 2017 10:50 AM V1-PT THINKING ABO UT QUIT TOBACCO USE [facility] Sep 04, 2016 09:38 AM QUIT TOBACCO USE I N PAST YEAR stopped smoking 4 weeks ago was smoking a pack a day [facility] August 24, 2015 02:34 PM CURRENT SMOKER 6-10 cigarettes a day [facility] August 24, 2015 02:34 PM V1-PT NOT INTEREST ED IN QUIT TOBACCO USE [facility] August 06, 2014 10:17 AM V1-PT DECLINES TOB ACCO CESSATION [facility] August 06, 2014 10:17 AM V1-PT THINKING ABO UT QUIT TOBACCO USE [facility] Feb 20, 2014 09:01 AM CURRENT SMOKER 1/2 PACK A DAY [facility] Feb 20, 2014 09:01 AM V1-PT DECLINES REF TO TOBACCO CESS [facility] Feb 20, 2014 09:01 AM V1-PT DECLINES TOB ACCO CESSATION [facility] Feb 20, 2014 09:01 AM V1-PT NOT INTEREST ED IN QUIT TOBACCO USE [facility] Mar 21, 2013 10:27 AM CURRENT SMOKER Pt. stated 10-15 cigarettes a day!. [facility] Mar 21, 2013 10:27 AM V1-PT NOT INTEREST ED IN QUIT TOBACCO USE [facility] Sep 04, 2012 07:59 AM V1-PT DECLINES REF TO TOBACCO CESS [facility] Sep 04, 2012 07:59 AM V1-PT DECLINES TOB ACCO CESSATION [facility] Sep 04, 2012 07:59 AM V1-PT THINKING ABO UT QUIT TOBACCO USE [facility] Mar 19, 2012 10:34 AM CURRENT SMOKER sto [facility] Feb 07, 2011 02:53 PM QUIT TOBACCO USE 1 -7 YEARS AGO [facility] Jul 20, 2010 09:40 AM V1-PT DECLINES REF TO TOBACCO CESS [facility] Jul 20, 2010 09:40 AM V1-PT NOT INTEREST ED IN QUIT TOBACCO USE [facility] Jan 14, 2010 08:08 AM CURRENT SMOKER Pt. stated he smokes a pack a day!! [facility] Jan 14, 2010 08:08 AM V1-PT DECLINES REF TO TOBACCO CESS [facility] Jan 14, 2010 08:08 AM V1-PT DECLINES TOB ACCO CESSATION [facility] Jan 14, 2010 08:08 AM V1-PT NOT INTEREST ED IN QUIT TOBACCO USE [facility] Advance Directives: All historical and current Section Date Range: From patient's date of to the date document was created. This section includes ALL of a patient's completed or amended VA Advance and Rescinded Directives. The entries below indicate that a directive exists for the patient, but an actual copy is not included with this document. The data comes from all [place] facilities. Date Advance Directives Provider Source Jan 17, 2010 ADVANCE DIRECTIVE MONY COSTA Encounter Notes: All associated encounter notes This section contains the clinical notes associated to the Encounter. Date/Time Encounter Note(s) Provider Source Nov 14, 2023 09:10 AM PHYSICIAN NOTE: LOCAL TITLE: MD NOTE STANDARD TITLE: PHYSICIAN NOTE DATE OF NOTE: NOV 14, 2023@09:10 ENTRY DATE: NOV 14, 2023@09:10:13 AUTHOR: ZANE ALMAZAN EXP COSIGNER: URGENCY: STATUS: COMPLETED HISTORY OF PRESENT ILLNESS: SHALOM RADFORD, is a 83 yo MALE [place], who presents at the [facility] for follow up visit for chronic medical conditions. Non- VA providers PCP- Dr SOLER- appointment next week Pulmonary- Dr Dalton q 6 mo f/u vascular surgery - Dr Rios[place] [facility] Active problems - Computerized Problem List is the source for the following: -Prediabetes -Hyperlipidemia -COPD -Chronic peripheral vascular disease The following VA and Non-VA meds were reconciled with patient: Active Outpatient Medications (including Supplies): Issue Date Status Last Fill Active Outpatient Medications Refills Expiration 1) OLODATEROL/TIOTROP 2.5MCG/ACTUAT 60D INH ACTIVE Issu:06-01-23 Qty: 1 for 30 days Sig: INHALE 2 Refills: 5 Last:10-18-23 PUFFS (1 DOSE) BY MOUTH ONCE DAILY Expr:06-01-24 2) SIMVASTATIN 40MG TAB Qty: 90 for 90 ACTIVE Issu:05-16-23 days Sig: TAKE ONE TABLET BY MOUTH Refills: 0 Last:11-04-23 EVERY EVENING AFTER SUPPER FOR Expr:05-16-24 CHOLESTEROL Start Date Active Non-VA Medications Refills Expiration 1) Non-VA FISH OIL 1000MG (500MG DHA/EPA) ACTIVE CAP SiMG BY MOUTH DAILY 2) Non-VA LORATADINE 10MG TAB SiMG BY ACTIVE MOUTH DAILY 3) Non-VA MILK THISTLE CAP/TAB Si MG ACTIVE TWICE DAILY 5 Total Medications ALLERGIES: ========= ATORVASTATIN LAB HISTORY: CBC, LFTs, lipids, TSH,normal limits Glucose level 193 hemoglobin A1c 5.7 and GFR 54 The rest of BMP normal limits PMH ========= Hypercholesterolemia, prediabetes, COPD, peripheral vascular disease, cholinergic urticaria, B12 deficiency, colon polyps, alcohol use, erectile dysfunction,Former smoker, flu infection in April 2023 for which he was admitted in the hospital for 3 days PSH ========= Lap servando Bilateral eye cataracts - s/p surgery bladder cancer s/p TURP and chemoT 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 SOCIAL HISTORY: single, partner for 21 years with 2 children Smoking quit in 2022- smoked 1/2 pack a day before Drugs denies Alcohol denies HISTORY: PERIOD OF SERVICE - [employer] FROM Sep TO Sep COMBAT SERVICE INDICATED: No REVIEW OF SYSTEMS: No fever, chills, No chest pain shortness of breath at rest but mild chronic shortness of breath with exertion no cough or wheezing No abdominal pain nausea or vomiting No joints pain No headaches or dizziness PHYSICAL EXAMINATION: WD/WN seems to be in NAD S1-S2 positive, RRR HIRAM, mild decreased breath sounds bilateral throughout but no wheezing rales or crackles Abdomen soft nontender to palpation No edema lower extremities AAO x3; ambulates without help ASSESSMENT/PLAN: -Prediabetes-borderline fasting glucose and hemoglobin A1c Advised him to watch his diet for carbohydrates and continue to exercise he states goes to gym 3-4 times a weeks for 30- 45 minutes -Hyperlipidemia- continue statins, healthy diet and exercuse as tolerated -COPD- with no signs of exacerbation at this time Albuterol renewed -Chronic peripheral vascular disease -managed by vascular team on cilostazol The prescription is usually sent by his vascular team directly to our [place] pharmacy -CKD-GFR 54-will monitor for now FOLLOW UP: ========= RTC - 6month annual with fasting labs Today's documentation was made using voice recognition software. This note may contain spelling/grammatical errors secondary to this software. Every effort is made to correct errors, but if mistakes are found they need to be taken in context. UPCOMING APPOINTMENTS: 09/01/2024 09:00 NHM/OPTOMETRY/BORASKI No barriers; Patient understands and agrees to current treatment plan. If pt has any questions, concerns, or changes in current health status he/she will call or come in to the VA. Medication Reconciliation: Outpatient: Has the patient been taking medications as documented in the EMLR? YES: The patient has been taking medications as documented in the EMLR. Essential Medication List for Review used to complete this medication reconciliation. INCLUDED IN THIS LIST: Alphabetical list of active outpatient prescriptions dispensed from this VA (local) and dispensed from another VA or DoD facility (remote) as well as inpatient orders [...] whether with a VA or non-VA provider. JLV Link Data on this list may not be complete. Please check JLV. Allergies/ADRs (Tool #5) FACILITY ALLERGY/ADR -------- [facility] NO KNOWN ALLERGIES [facility] [place] [facility] ATORVASTATIN Med Recon NoGlossary (Tool #1) INCLUDED IN THIS LIST: Alphabetical list of active outpatient prescriptions dispensed from this VA (local) and dispensed from another VA or DoD facility (remote) as well as inpatient orders (local pending and active), local clinic medications, locally documented non-VA medications, and local prescriptions that have or been discontinued in the past 90 days. Non-VA Meds Last Documented On: Jul 27, 2017 NOTE The display of VA prescriptions dispensed from another VA or DoD facility (remote) is limited to active outpatient prescription entries matched to National Drug File at the originating site and may not include some items such as investigational drugs, compounds, etc. NOT INCLUDED IN THIS LIST: Medications self-entered by the patient into personal health records (i.e. Exit41) are NOT included in this list. Non-VA medications documented outside this ME, remote inpatient orders (regardless of status) and remote clinic medications are NOT included in this list. The patient and provider must always discuss medications the patient is taking, regardless of where the medication was dispensed or obtained. OUTPT CILOSTAZOL 100MG TAB (Status = Discontinued) TAKE ONE TABLET BY MOUTH TWICE DAILY -TAKE 30 MINUTES BEFORE MEALS OR TWO HOURS AFTER MEALS Rx# [id number] Last Released: 08/17/23 Qty/Days Supply: Rx Expiration Date: 05/18/24 Refills Remainin Non-VA FISH OIL 1000MG (500MG DHA/EPA) CAP TAKE 1 CAPSULE BY MOUTH DAILY Medication prescribed by Non-VA provider. Non-VA LORATADINE 10MG TAB TAKE ONE TABLET BY MOUTH DAILY Patient wants to buy from Non-ME pharmacy. Medication prescribed by Non-VA provider. Non-VA MILK THISTLE CAP/TAB 100 MG po TWICE DAILY Medication prescribed by Non-VA provider. OUTPT OLODATEROL/TIOTROP 2.5MCG/ACTUAT 60D INH (Status = Active) INHALE 2 PUFFS (1 DOSE) BY MOUTH ONCE DAILY Rx# [id number] Last Released: 10/22/23 Qty/Days Supply: 05/01 Rx Expiration Date: 06/01/24 Refills Remainin Indication: FOR COPD OUTPT SIMVASTATIN 40MG TAB (Status = Active) TAKE ONE TABLET BY MOUTH EVERY EVENING AFTER SUPPER FOR CHOLESTEROL Rx# [id number] Last Released: 10/29/23 Qty/Days Supply: Rx Expiration Date: 05/16/24 Refills Remainin SUPPLIES /harpreet/ ZANE ALMAZAN MD PRIMARY CARE PHYSICIAN Signed: 11/14/2023 09:33 ZANE ALMAZAN [facility] Nov 14, 2023 09:00 AM PREVENTIVE MEDICIN E NURSING NOTE: LOCAL TITLE: CLINICAL REMINDERS/NURSING STANDARD TITLE: PREVENTIVE MEDICINE NURSING NOTE DATE OF NOTE: NOV 14, 2023@09:00 ENTRY DATE: NOV 14, 2023@09:00:12 AUTHOR: JOSH MCCORD EXP COSIGNER: URGENCY: STATUS: COMPLETED COVID-19 Immunization: Refused Moderna Monovalent COVID-19 vaccine Immunization: COVID-19 (MODERNA), MRNA, LNP-S, PF, 50 MCG/0.5 ML (AGES 12+ YEARS) Refusal Reason: PATIENT DECISION Patient refuses all immunization(s) in the COVID-19 group Date Documented: 11/14/23 09:00 /joey MCCORD LPN Licensed Practical Nurse Signed: 11/14/2023 09:00 JOSH MCCORD [facility] Nov 01, 2023 12:26 PM ADMINISTRATIVE NOT E: LOCAL TITLE: ADMINISTRATIVE NOTE STANDARD TITLE: ADMINISTRATIVE NOTE DATE OF NOTE: NOV 01, 2023@12:26 ENTRY DATE: NOV 01, 2023@12:26:23 AUTHOR: JOHN PAUL GARCIA EXP COSIGNER: URGENCY: STATUS: COMPLETED [facility] [address] [place] [id number] [phone] * SHALOM RADFORD [address] [place] [id number] Date: NOV 01, 2023 re: This is a reminder of your upcoming PCP appt with STELEA,ZANE F. Appointment Date: Oct@09:00 Appointment Type: In-person visit (X)Fasting blood work NON fasting blood work LEFT MESSAGE OV VOICEMAIL TO CONFIRM APPT AND LABWORK Sincerely, Office Staff for: ZANE ALMAZAN Primary Care Provider [facility] [address] [place] [phone] T [phone] F [phone] Upcoming Appointments: 11/14/2023 09:00 CWM/SO/PACT [facility] 09/01/2024 09:00 NHM/OPTOMETRY/BORASKI APPOINTMENT [facility] (SPOPC OR SO = [facility], [address] [place] [address]) (GOPC OR GO = [address]) (NHM or NO = [facility]) (VVC - Video Call) (Tel-X Telephone Visit) (TH - Telehealth) /harpreet/ JOHN PAUL MESA Signed: 11/01/2023 12:27 JOHN PAUL GARCIA [facility]
--- OUTSIDE RECORDS SUMMARY | 2024-07-30 08:05 | XMS_ITS ---
Author Organization [facility] Address [address] [place] [id number] Care Team Providers Care Gift Consultant Name Role Phone Chio HERRERA, Carlos Anderson Primary Care Provider Unav Stone Pittman Unavailable [phone] Encounters Encounter Location Date Provider Diagnosis [facility] [address] [address] 07/24/2023 Stone Carlos Plan Of Treatment No Information Progress Notes * Yaya EPPSDOB: [birth year] (83 yo M)Acc No.[id number]:07/24/2023 Progress Notes Patient:?Yaya EPPS Provider:?Stone Carlos DPM :1940???Age:82 Y???Sex:Male Carter e:07/24/2023 Address:[address] [place], [place] [id number] Pcp:Carlos Barroso MD Subjective: * Chief Complaints: * ??? * Medical History:? Objective: * Vitals:? Assessment: Plan: * Treatment: * Images: * The named appointment provid er may or may not be the originator of this progress note, and it is not deemed complete until electronically signed by the appointment provider. Sign off status: Pending * Provider:?Stone Carlos DPM Date:? 024 Generated for Joséi livan/Sharon/eTransmitting on:?07/30/2024 08:05 AM EDT
--- OUTSIDE RECORDS SUMMARY | 2024-07-30 08:05 | XMS_ITS | Encounter Summary ---
Author Name [facility] [place] [facility] [place] Address [address] [place] [address] Care Team Providers Care [place] Operator Name Role Phone ANATOLY AWAN Primary [...] AETNA POINT OF SERVICE Apr 02, 2009 [id number] SHAL[address] RADFORD PATIENT AETNA PHARMACY MANAGEMENT PRESCRIPT ION Apr 02, 2009 [id number] SHAL[address] RADFORD [facility] (WNR) MEDICARE ADVANTAGE [facility] (WNR) Apr 02, 2017 [id number] SHALOM RADFORD [facility] (WNR) MEDICARE (M) [facility](W NR) Apr 02, 2015 [id number] SHALOM RADFORD PATIENT MEDICARE (WNR) MEDICARE (M) PART A July 31, 2005 PART A [id number] SHALOM RADFORD PATIENT MEDICARE (WNR) MEDICARE (M) PART B July 31, 2005 PART B [id number] SHALOM RADFORD PATIENT MEDICARE (WNR) MEDICARE (M) PART A July 31, 2005 PART A [id number] [phone] SHALOM RADFORD PATIENT MEDICARE (WNR) MEDICARE (M) PART B July 31, 2005 PART B [id number] [phone] SHALOM RADFORD PATIENT [facility] (DENTAL) DENTAL INSURANCE [place] SEN[place] R PLAN Apr 02, 2018 [id number] [phone] SHALOM RADFORD PATIENT Selected Encounter This section includes the information on record at [place] for the Encounter. Date/Time Encounter Type Encounter Description Reason Pro vider Source August 06, 2023 12:55 PM Outpatient Encounter COMMUNITY CARE CONSULT IHE Encounter Template Text not used by [place] Plan of Treatment: Future Appointments (+ 6 months) and Future Tests (+/- 45 days) The Plan of Treatment section includes future care activities for the patient from all [place] treatmentfacilities. This section includes future appointments and future orders which are active, pending or scheduled. Future Appointments This section includes appointments that were scheduled to occur 6 months from the date of the Encounter, up to a maximum of 20 appointments. The data comes from all [place] treatment facilities. Appointment Date/Time Appointment Type Appointme nt Facility Name August 15, 2023 09:30 AM [facility]ULATORY [facility] August 31, 2023 09:00 AM [facility]ULATORY [facility] Sep 04, 2023 08:15 AM [facility]ULATORY [facility] Nov 14, 2023 09:00 AM AM[facility]ULATORY - [facility]ICINE [facility] Advance Directives: All historical and current Section Date Range: From patient's date of to the date document was created. This section includes ALL of a patient's completed or amended VA Advance and Rescinded Directives. The entries below indicate that a directive exists for the patient, but an actual copy is not included with this document. The data comes from all [place] facilities. Date Advance Directives Provider Source Jan 17, 2010 ADVANCE DIRECTIVE MONY COSTA Encounter Notes: All associated encounter notes This section contains the clinical notes associated to the Encounter. Date/Time Encounter Note(s) Provider Source August 06, 2023 12:55 PM ADMINISTRATIVE NOTE: LOCAL TITLE: ADMINISTRATIVE NOTE STANDARD TITLE: ADMINISTRATIVE NOTE DATE OF NOTE: AUGUST 06, 2023@12:55 ENTRY DATE: AUGUST 06, 2023@12:55:37 AUTHOR: PRAMOD PORTILLO EXP COSIGNER: URGENCY: STATUS: COMPLETED ADMINISTRATIVE NOTE Has ADDENDA Community Provider is seeking Continuation of Care referral. [facility] Care-Urology Last referral ended on 07/31/23. [facility] [address] [address] [phone] TAX ID# [id number] NPI# [id number] has scheduled appt. on 08/15/23 @ 9:30am /harpreet/ PRAMOD PORTILLO CARE IN THE COMMUNITY RELATIONS Signed: 08/06/2023 12:56 Receipt Acknowledged By: 08/07/2023 14:48 /es/ ROSIBEL TORRES RN-BC REGISTERED NURSE 08/09/2023 13:25 /es/ KHANH MESA 08/08/2023 17:55 /es/ ZANE ALMAZAN MD PRIMARY CARE PHYSICIAN 08/07/2023 ADDENDUM STATUS: COMPLETED Placed CC urology continuation of care consult as requested and held for provider review. /harpreet/ ROSIBEL TORRES RN-BC REGISTERED NURSE Signed: 08/07/2023 14:53 PRAMOD PORTILLO [facility]
--- OUTSIDE RECORDS SUMMARY | 2024-07-30 08:05 | XMS_ITS | Clinical Summary ---
Author Organization [facility] Address [address] [place] [address] Care Team Providers Care Theatre Instructor Name Role Phone BarrosoCarlos Primary Care Provider [phone] Allergies Active Allergy Reactions Criticality Noted Date [...] Monovalent Vaccine, Moderna, mRNA, PF 0 06/26/2020 Family History Medical History Relation Name Comments Cancer Brother Diabetes Father Heart disease Father Hyperlipidemia Father Hypertension Father Diabetes Mother Heart disease Mother Hyperlipidemia Mother Hypertension Mother Relation Name Status Comments Brother Father Mother Social History Tobacco Use Types Packs/Day Years [...] 07/31/2020 8:15 AM EDT Plan of Treatment Health Maintenance Due Date Last Done Comments Zoster Vaccines (2 of 3) 11/21/2011 09/26/2011 RSV Vaccine (60+ years old and patients) (1 - 1-dose 75+ series) 08/26/2015 COVID-19 Vaccine (2 - season) 2023 06/26/2020 Alcohol/Substance Use Screening 04/02/2024 Health Care Proxy Review 04/02/2024 Influenza Vaccine (Season Ended) 2024 01/13/2020, 12/12/2019, 12/31/2018, Additional history exists DTaP,Tdap,and Td Vaccines (6 - Td or Tdap) 03/16/2030 03/16/2020, 05/07/2012, 08/22/2010, Additional history exists Pneumococcal Vaccine: 50+ Years Completed 04/27/2015, 08/06/2014, 04/27/2008 CT Lung Cancer Screening (12 months, previous LungRADS 1 or 2) Discontinued 07/31/2020 Hepatitis B Vaccines Aged Out No long er eligible based on patient's age to complete this topic Medical Devices Implanted Type Area Musical Instruments Assembler Device Identifier Shelf Expiration Date Model / Serial / Lot Stent Ureteral Glidex Hydrophilic Coating 8fr 24cm Flexima - [id number] Implanted:Qty: 1 on 06/08/2020 by Matthew Vazquez MD at [facility] Stent Right: Ureter [employer] 05/15/2022 [id number] / / [id number] Stent Ureteral Firm Hydroplus Coating 8fr 26cm Percuflex Plus - [id number] Implanted:Qty: 1 on 06/09/2020 by Mireya Diaz MD at [facility] Stent Right: Ureter [employer] 03/08/2023 [id number] / / [id number] Description:Stent removed, n ot in implants, verified as complete by surgeon Procedures * Due to [place] [employer] law, this organization might not be sharing negative HIV tests. Procedure Name Priority Date/Time Associated Diagnosis Comments CT CHEST WO CONTRAST STAT 07/31/2020 1:19 AM EDT from Last 3 Months or Most Recently Relevant to Health Maintenance Results * Due to [place] [employer] law, this organization might not be sharing [...] obtain the completed interpretation. ? Workstation ID: [id number] Up-to-date CT equipment and radiation dose reduction [...] of pneumoperitoneum is present. Resulting Agency Comment [id number] Procedure Note Bryce Bazzi MD - 07/31/2020 COMPARISON: None. FINDINGS: LINES AND TUBES: None. [...] possible to obtain thecompleted interpretation. Workstation ID: [id number] Up-to-date CT equipment and radiation dose reduction techniques wereemployed. CTDIvol: 5.6 mGy. DLP: 193 mGy-cm. Jose TORIBIO IMG CT PROCEDURES Final Resu lt from Last 3 Months or Most Recently Relevant to Health Maintenance [place] [facility] Advance Directives Documents on File Type Date Recorded Patient Ethylene Oxide Panelboard Operator Expl anation Health Care Proxy 07/15/2020 2:07 [...] Significant Other Health Care Agent Care Teams Theatre Instructor Relationship Specialty Start Date End Date Carlos Barroso PCP - General Internal Medicine 05/10/20
--- OUTSIDE RECORDS SUMMARY | 2024-07-30 08:06 | XMS_ITS ---
Author Name [facility] [place] [facility] [place] [facility] [place] Address [address] [place] [address] Care Team Providers Care Paraprofessional Interpreter Name Role Phone ANATOLY AWAN Primary Care [...] AETNA POINT OF SERVICE Apr 02, 2009 [id number] SHAL[address] RADFORD AETNA PHARMACY MANAGEMENT PRESCRIPT ION Apr 02, 2009 [id number] SHAL[address] RADFORD [facility] (WNR) MEDICARE ADVANTAGE [facility] (WNR) Apr 02, 2017 [id number] SHALOM RADFORD [facility] (WNR) MEDICARE (M) [facility](W NR) Apr 02, 2015 [id number] SHALOM RADFORD PATIENT MEDICARE (WNR) MEDICARE (M) PART A July 31, 2005 PART A [id number] SHALOM RADFORD PATIENT MEDICARE (WNR) MEDICARE (M) PART B July 31, 2005 PART B [id number] SHALOM RADFORD PATIENT MEDICARE (WNR) MEDICARE (M) PART A July 31, 2005 PART A [id number] SHALOM RADFORD PATIENT MEDICARE (WNR) MEDICARE (M) PART B July 31, 2005 PART B [id number] SHALOM RADFORD PATIENT [facility] (DENTAL) DENTAL INSURANCE [place] SEN[place] R PLAN Apr 02, 2018 [id number] [phone] SHALOM RADFORD PATIENT Selected Encounter This section includes the information on record at [place] for the Encounter. Date/Time Encounter Type Encounter Description Reason Provider Source August 31, 2023 09:00 AM INTRM OPH EXAM EST PATIENT OPTOMETRY ICD-10-CM H35.3111 Nexdtve age-related mclr degn, right eye, early dry stage NAE NICHOLE [place] Encounter Template Text not used by [place] Assessments - Encounter Diagnoses This section includes the primary and secondary diagnoses documented for the Encounter. Date/Time Primary/Secondary Diagnosis Diagnosis Name Provider Source August 31, 2023 09:11 AM PRIMARY Nexdtve age-related mclr degn, right eye, early dry stage NAE NICHOLE [facility] August 31, 2023 09:11 AM SECONDARY Exudative age-rel mclr degn, left eye, with inactive scar NAE NICHOLE [facility] August 31, 2023 09:11 AM SECONDARY Presence of intraocular lens NAE NICHOLE [facility] Plan of Treatment: Future Appointments (+ 6 months) and Future Tests (+/- 45 days) The Plan of Treatment section includes future care activities for the patient from all [place] treatmentfacilities. This section includes future appointments and future orders which are active, pending or scheduled. Future Appointments This section includes appointments that were scheduled to occur 6 months from the date of the Encounter, up to a maximum of 20 appointments. The data comes from all [place] treatment facilities. Appointment Date/Time Appointment Type Appointme nt Facility Name Sep 04, 2023 08:15 AM [facility]ORY [facility] Nov 14, 2023 09:00 AM AMBULATORY - MEDICINE [facility] Advance Directives: All historical and current Section Date Range: From patient's date of to the date document was created. This section includes ALL of a patient's completed or amended [place] Advance and Rescinded Directives. The entries below indicate that a directive exists for the patient, but an actual copy is not included with this document. The data comes from all [place] facilities. Date Advance Directives Provider Source Jan 17, 2010 ADVANCE DIRECTIVE MONY COSTA Encounter Notes: All associated encounter notes This section contains the clinical notes associated to the Encounter. Date/Time Encounter Note(s) Provider Source August 31, 2023 09:00 AM OPTOMETRY NOTE: LOCAL TITLE: OPTOMETRY NOTE(T) STANDARD TITLE: OPTOMETRY NOTE DATE OF NOTE: AUGUST 31, 2023@09:00 ENTRY DATE: AUGUST 31, 2023@09:00:42 AUTHOR: NAE NICHOLE EXP COSIGNER: URGENCY: STATUS: COMPLETED I saw this patient in conjunction with the student and agree to the stated findings and plan after reviewing both history and repeating ferrera elements of physical exam. 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 He sees Dr. Mcqueen at [facility] every 2 months. He wears reading glasses only. He would like updated reading glasses. Otherwise no other acute ocular disease was seen today. He will continue care with [facility]. The patient will return in 12 months or sooner if any problems arise with dilated fundus exam. /harpreet/ NAE NICHOLE OD STAFF ALLIANCE CONSULTANT Signed: 08/31/2023 09:11 NAE NICHOLE [facility] August 31, 2023 08:15 AM OPTOMETRY NOTE: LOCAL TITLE: OPTOMETRY NOTE STANDARD TITLE: OPTOMETRY NOTE DATE OF NOTE: AUGUST 31, 2023@08:15 ENTRY DATE: AUGUST 31, 2023@08:15:09 AUTHOR: ANNIKA NORIEGA EXP COSIGNER: NAE NICHOLE URGENCY: STATUS: COMPLETED Active problems - Computerized Problem List is the source for the followin. Prediabetes ([facility] [id number]) 2. Hyperlipidemia ([facility] [id number]) 3. CKD - chronic kidney disease 4. Personal history of primary malignant neoplasm of kidney 5. Microscopic hematuria 6. Impaired fasting glucose 7. Chronic obstructive lung disease 8. Peripheral vascular disease (SNOMED CT [id number]) 9. Pain in joint involving lower leg 10. 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 Bilateral Cataracts 13. Vitamin B 12 Deficiency 14. Frequency of Urination 15. Laparoscopy, Surgical; Cholecystectomy 16. Personal History of Tobacco Use 17. 2007: Tetanus Vacciine 18. Personal History of Alcoholism 19. Personal History of Colonic Polyps 20. 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 Hyperglycemia 22. 1970: Urethral Surgery 23. Low Back Pain 24. Hypercholesterolemia 25. FAM HX-ISCHEM HEART DIS 26. Tinea Unguium 27. Ataxia 28. History of Fall Active Outpatient Medications (including Supplies): Active Outpatient Medications Status 1) CILOSTAZOL 100MG TAB TAKE ONE TABLET BY MOUTH TWICE ACTIVE DAILY -TAKE 30 MINUTES BEFORE MEALS OR TWO HOURS AFTER MEALS 2) OLODATEROL/TIOTROP 2.5MCG/ACTUAT 60D INH INHALE 2 ACTIVE PUFFS (1 DOSE) BY MOUTH ONCE DAILY 3) SIMVASTATIN 40MG TAB TAKE ONE TABLET BY MOUTH EVERY ACTIVE EVENING AFTER SUPPER FOR CHOLESTEROL Active Non-VA Medications Status 1) Non-VA FISH OIL 1000MG (500MG DHA/EPA) CAP 1000MG BY ACTIVE MOUTH DAILY 2) Non-VA LORATADINE 10MG TAB 10MG BY MOUTH DAILY ACTIVE 3) Non-VA MILK THISTLE CAP/TAB 100 MG TWICE DAILY ACTIVE 6 Total Medications Allergies: ATORVASTATIN All medications including those prescribed by outside VA's, community providers, and all OTC meds were reviewed and reconciled with patient to the best of their abilities. This 83 year old MALE is seen today for CEE - last seen here in 12/2022 for AMD f/u Chief Complaint: -Pt reports no sudden changes in vision. Currently wearing rx for NVO and feels they work well. No other ocular complaints. -Pt states that he sees Dr. Mcqueen every 8 weeks for injections OS and is scheduled to see him again 09/04/23. OHx: -Pseudophakia OU -Early dry AMD OD, h/o wet AMD OS; being followed by Dr. Mcqueen at [facility] OU -DE OU (-) Pain: (-) EARLY: (-) Diplopia: (-) Flashes: (+) Floaters: longstanding, occassional (-) Amaurosis Fugax/Tia's: (-) Eye Injury: (+) Eye Surgery: anti-VEGF injections OS, CE OU (-) TBI FOHx: (-) Glaucoma/ARMD/Blindness (-) Smoker/Length of Time/PPD: VITALS (most recent, as listed in the electronic record): B/P: 137/73 (05/16/2023 10:59) Pulse: 90 (05/16/2023 10:59) Temperature: 96.9 F [36.1 C] (05/11/2022 09:57) Weight: 96.8 lb [43.91 kg] (05/16/2023 10:59) Height: 63 in [160.0 cm] (11/03/2021 15:24) BMI: BMI: 17.2 PERTINENT LABS: HEMOGLOBIN A1C TREND Collection DT Spec HGBA1c 05/09/2023 07:31 BLOOD 6.3 H 05/03/2022 07:47 BLOOD 5.8 H 12/31/2019 08:23 BLOOD 6.0 H 07/16/2018 07:36 BLOOD 5.9 H 07/23/2017 08:09 BLOOD 6.1 H Current Rx with last BCVA: OD: +0.50 -1.50 x090 20/40-2 OS: +0.75 -0.75 x045 +2 Add: +2.50 20/40 DVA ( )sc ( x )cc OD: -2 OS: -2 Pupils: PERRL (-)APD EOMs: SAFE OU, (-)Pain/Diplopia CVF (facial, peripheral): FTFC OU Subjective Refraction: OD: +0.50 -1.50 x090 -2 OS: +0.75 -0.75 x045 -2 Add: +2.50 20 Final Rx for NVO: OD: +2.75 -1.00 x095 OS: +2.75 sph - OU All the above performed by student, reviewed by attending Anterior segment: Performed by student, repeated by attending Lids: clear OU, moderate dermatochalasis OU Conj: white and quiet OU Cornea: clear OU, arcus OU, trace SPK OU AC: deep and quiet OU Iris: flat and clear OU Lens: PCIOL clear and well centered OU Tonometry: Performed by student, reviewed by attending OD 12 mmHg OS 13 mmHg Time: 8:57am Fundus exam: Non dilated: XXX Performed by student, repeated by attending Vit: clear OU C/D: 0.30 OD, 0.30 OS Macula: OD: few drusen with pigment changes, (-)fluid/hemorrhages OS: few drusen with pigment changes, (-)fluid/hemorrhages PPole: clear OU to extent seen undilated A/V: 2/3 Vessels: normal caliber OU to extent seen undilated Periph: pt deferred dilation d/t upcoming dilation with retina Assessment/Plan: 1. Early non-exudative macular degeneration OD, h/o exudative macular degeneration OS - Pt ed on today's findings. Ed on pathophysiology of AMD and visual consequences of disease. Corrected acuity stable. - Pt advised to continue care with Dr. Mcqueen at [facility] and contact them immediately with any sudden changes in vision OU. - Monitor annually. Consider DFE at next visit. 2.Pseudophakia OU - Pt ed on today's exam findings. - Corrected acuity stable OU. IOL clear and well centered OU. - Monitor annually. 3. Dry eye OU - asymptomatic - Pt ed on today's findings. Ed to call if experiencing symptoms and we will order ATs. - Monitor annually. 4. Hyperopia and Presbyopia OU - No change in rx. Ordered NVO per pt request. - Monitor annually Return to Clinic 1 yr or sooner prn. [place] Education: After discussion and answering all 's questions, [place] demonstrated and verbalized understanding of diagnosis and treatment. Yes x no [ ] Patient Education: Macular Degeneration: Patient was educated regarding macular degeneration including both wet and dry varieties as well as the natural history and prognosis of this condition. Education included the role of amsler grid testing , ocular nutraceutical therapy as well as diet and healthy lifestyle choices when applicable. Exclusion criteria includes extremely reduced acuity or cognitive decline for amsler grid testing and other coexisting systemic contraindication for supplements, diet and exercise. Medication Reconciliation: Outpatient: Has the patient been [...] whether with a VA or non-VA provider. /harpreet/ ANNIKA NORIEGA OPTOMETRY STUDENT Signed: 08/31/2023 09:43 /harpreet/ NAE NICHOLE OD STAFF ALLIANCE CONSULTANT Cosigned: 08/31/2023 09:44 ANNIKA NORIEGA [place] [facility]
--- NOTE | 2024-07-30 08:32 | AM.OFFWIN_ITS ---
Intake Vital Signs 07/30/24 08:33 Height 5 ft 3 in Weight 104 lb 6 oz BMI 18.5 BP 110/60 Blood Pressure Location Rt brachial Position Sitting Pulse 110 H Pulse Source Pulse Oximeter Temp 97.7 F Temp Source Temporal Artery Scan Pulse Oximetry (%) 93 Oxygen Delivery Method Room Air Intake Visit Reasons: EP Tick bite? Intake Note: Patient is here today for possible tick bite on left arm. Patient Tobacco Use Status: Current everyday Tobacco user Editor Department Required: No All Round Logger: Not Required per policy Accompanied by: Self / Same As Patient Allergies No Known Allergies [No Known Allergies*] Allergy (Verified 07/30/24 08:33) Medication List - Last Reconciled 07/30/24 by Palemr Gallagher MD albuterol sulfate 90 mcg/actuation (ProAir HFA) 2 puffs inhalation Q6H PRN budesonide 0.25 mg inhalation BID cefdinir 300 mg PO Q12H cilostazol 100 mg PO BID coenzyme Q10 100 mg PO DAILY ipratropium-albuterol 0.5 mg-3 mg(2.5 mg base)/3 mL 3 mL inhalation Q6H PRN loratadine (Allergy Relief (loratadine)) 10 mg PO DAILY milk thistle 150 mg PO BID multivitamin 1 tab PO DAILY nebulizers As directed omega-3 fatty acids (Fish Oil Concentrate) 1,000 mg PO DAILY simvastatin 40 mg PO BEDTIME tiotropium-olodaterol 2.5-2.5 mcg/actuation (Stiolto Respimat) 2 puffs inhalation DAILY 30 days vitamin B complex (B Complex-Vitamin B12 tablet) 1 tab PO DAILY Do you need a note to return to daycare/school/sports/work: No HPI EP Tick bite? HPI Details History - The patient is an 83-year-old male pre senting with a suspected insect bite. left forearm - The patient reports noticing the issue last night with an unknown onset timing. - The lesion is located on the left fore arm anterior aspect - The patient denies pain or itching ass ociated with the lesion. - The patient does not recall any specif ic bite or inciting event. - Patient mentioned recent outdoor activ ity, specifically fishing. - There are no significant symptoms or n oticeable changes since the lesion was discovered. Problem List - Suspected insect bite on the left fore arm Patient Instructions - Take the couple of antibiotic tablet as prescribed. Doxycycline - Monitor the bite area for any increase in size or change. - Return for medical attention if the ar ea gets bigger or symptoms worsen. Review of Systems - General: No fever no chills - Neurological: No headaches no dizziness - Ear nose throat: No sore throat no hearing difficulty no ear pain Physical Exam General: No acute distress HEENT: No acute findings Neck: Supple Respiratory system: Able to talk in full sentences, Gastrointestinal: No pain Extremities: Circular ecchymotic patch noted on left forearm anterior aspect, no pain Skin: Normal turgor [facility] Medical History Pulmonary nodules DVT (deep venous thrombosis) Pneumonia COPD (chronic obstructive pulmonary disease) Pre-op chest exam Social History Patient Tobacco Use Status: Current everyday Tobacco user Tobacco use type: Cigarette Cigarette Packs Per Day: 1 Cigarettes Per Day: 3 Years Smoked: 22 years old Physical Exam Vital Signs: Last Vital Signs Temp 97.7 F 07/30/24 08:33 Pulse 110 H 07/30/24 08:33 BP 110/60 07/30/24 08:33 Pulse Ox 93 07/30/24 08:33 Oxygen Delivery Method Room Air 07/30/24 08:33 BMI result Body Mass Index 18.5 Assessment & Plan Assessment & Plan (1) Insect bite: Code(s): W57.XXXA - Bitten or stung by nonvenomous insect and other nonvenomous arthropods, initial encounter Qualifiers: Encounter type: initial encounter Site of insect bite: forearm Laterality: left Qualified Code(s): S50.862A - Insect bite (nonvenomous) of left forearm, initial encounter; W57.XXXA - Bitten or stung by nonvenomous insect and other nonvenomous arthropods, initial encounter (2) Ecchymosis of forearm: Code(s): R58 - Hemorrhage, not elsewhere classified Plan History - The patient is an 83-year-old male presenting with a suspected insect bite. left forearm - The patient reports noticing the issue last night with an unknown onset timing. - The lesion is located on the left forearm anterior aspect - The patient denies pain or itching associated with the lesion. - The patient does not recall any specific bite or inciting event. - Patient mentioned recent outdoor activity, specifically fishing. - There are no significant symptoms or noticeable changes since the lesion was discovered. Problem List - Suspected insect bite on the left forearm Patient Instructions - Take the couple of antibiotic tablet as prescribed. Doxycycline - Monitor the bite area for any increase in size or change. - Return for medical attention if the area gets bigger or symptoms worsen. Medications: New doxycycline hyclate 100 mg PO BID 1 day 2 caps 0RF Coding Level of Care Code Est Pt Level 3 (61529) Diagnoses Insect bite of left forearm, initial encounter S50.862A; W57.XXXA Encounter type: initial encounter Site of insect bite: forearm Laterality: left Ecchymosis of forearm R58
[2024-07-30 08:33] VITALS: BP 110/60; PULSE 110; TEMP 36.5; O2SAT 93; BMI 18.5
== END 2024-07-30 09:41 | disposition home or self-care (01) ==
PROVIDERS: PCP Internal Medicine; Visit Provider Internal Medicine
DX: S50.862A Insect bite (nonvenomous) of left forearm, initial encounter (principal); W57.XXXA Bitten or stung by nonvenomous insect and other nonvenomous arthropods, initial encounter; R58 Hemorrhage, not elsewhere classified

== ENCOUNTER → 2024-07-30 08:01 | Outpatient (BNVA) | payer MEDICARE, SELFPAY | PROVIDERS: PCP Internal Medicine; Visit Provider Internal Medicine | DX: S50.862A Insect bite (nonvenomous) of left forearm, initial encounter (principal); W57.XXXA Bitten or stung by nonvenomous insect and other nonvenomous arthropods, initial encounter | CPT/HCPCS: 99212 ==

== ENCOUNTER 2024-12-16 09:13 | Outpatient (AMB) | payer MEDICARE, SELFPAY ==
--- OUTSIDE RECORDS SUMMARY | 2023-07-24 04:30 | XMS_ITS ---
Author Organization [facility] Address [address] [place] [id number] Care Team Providers Care Project Development Leader Name Role Phone Chio HERRERA, Carlos Anderson Primary Care Provider Unav Stone Pittman Unavailable [phone] Encounters Encounter Location Date [facility] [place] [address] [id number] 07/24/2023 Stone Carlos Plan Of Treatment No Information Progress Notes * Yaya EPPSDOB: [birth year] (84 yo M)Acc No.[id number]:07/24/2023 Progress Notes Patient: Yaya CARTER Provider: Kemi Carlos DPM :1940 A ge:82 Y S ex:Male Date:07/24/2023 Address:[address] [place], [place] [id number] Pcp:Carlos Barroso MD Subjective: * Chief Complaints: * * Medical History: Objective: * Vitals: Assessment: Plan: * Treatment: * Images: * The named appointment provid er may or may not be the originator of this progress note, and it is not deemed complete until electronically signed by the appointment provider. Sign off status: Pending * Provider: Kemi Carlos DPM Date: 07/24/2023 Generated for Venancio licona/Sharon/Razitting on: 12/16/2024 11:32 AM EDT
[2024-12-16 09:19] VITALS: BP 104/56; PULSE 122; O2SAT 97; BMI 18.4
--- NOTE | 2024-12-16 09:19 | MHC.OFFVIS ---
Vital Signs 12/16/24 09:19 Height 5 ft 3 in Weight 103 lb 9.876 oz BMI 18.4 BP 104/56 L Blood Pressure Location Lt brachial Position Sitting Pulse 122 H Pulse Source Pulse Oximeter Pulse Oximetry (%) 97 Oxygen Delivery Method Room Air Intake Visit Reasons: Emphysema Flight Communications Officer Required: No Accompanied by: Self / Same As Patient Allergies No Known Allergies (No Known Allergies*) Allergy (Verified 12/16/24 09:23) HPI Comments Details: The patient is a 84-year-old gentleman known COPD with chronic respiratory failure on oxygen. He does get his medications through the OR including this the although in the Flovent inhaler. He also has a rescue inhaler that has not had to use. The oxygen therapy has been affecting beneficial. He does have a conserving device that he uses during the day and then the concentrator at nighttime. At this point the patient will have [employer] switch out his concentrator and I did fill out the paperwork in order to do so. 06/28/2020 the patient is here for pulmonary follow-up visit. 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 Currently being evaluated at [facility]. It appears that he is going to need surgery and will be extensive. In the meantime he is doing well from a respiratory status. He has not had any COPD exacerbations. He continues to use the Stiolto that he gets through the OR pharmacy. This appears to be affecting beneficial. He rarely uses the rescue inhaler. We did review his last pulmonary function studies that he had demonstrating a mild obstructive ventilatory defect consistent with COPD but, a disproportional diffusion impairment consistent with his emphysema. The patient did go for 6 minutes walk test during the office visit. He maintain a pulse ox above 96% which is reassuring Eli Hernán score was high as 4-10 after ambulating for a total of 400 m. The major issue with him was the heart rate was in the 130s. Therefore had him undergo a EKG which demonstrated sinus tachycardia without any ischemic changes. The heart rate did decrease down to 115 at rest when he was getting the EKG. He is scheduled to follow up with Cardiology for preoperative evaluation. At least from a pulmonary standpoint he appears to be medically optimized with the use the Stiolto. He does not require oxygen at this time. However, we need to be evaluated by Cardiology for preop evaluation specially with tachycardia. I did give him a copy of the EKG for him to review with Cardiology during his appointment. Based on the patient's or decreased diffusing capacity and the extent of his surgery there is an increased risk for perioperative pulmonary complications which include; atelectasis, hypoxia, pneumonia and prolonged mechanical ventilation. 01/04/2023 the patient is here for pulmonary follow-up visit. Overall the patient has been doing well. He is trying to maintain his weight. He is trying to stay active working around the house. Her he continues with his current respiratory regimen. He has been very compliant with this therapy. He did have a recent CT scan of the chest which was personally by me and the patient in the office. The patient does have some emphysema in appears to have small subcentimeter pulmonary nodules. At this point have not changed from his last CT scan. Will plan to follow-up in a year's time, which it will be in the spring. Once the patient shows stability after couple years we will not require serial CT chest. 12/31/2023 the patient is here for a pulmonary follow-up visit. Overall he is doing well. He is staying active. He is still going hunting. He has been using the Stiolto daily. He has not had to use his rescue inhaler. We did review his last CT scan of the chest that was done back in 07/21/2023 demonstrating stable pulmonary nodules. They have been stable for more than 2 years so therefore no additional imaging studies warranted. Therefore, follow-up in a year's time but will have him get a chest x-ray during the next visit in a year. If he has any issues prior to that he will call for an earlier assessment. 12/16/2024 the patient is here for pulmonary follow-up visit. He continues use his inhalers as prescribed. He gets his inhalers through the OR [facility]. The therapy has been affecting beneficial. Unfortunately continues to smoke cigarettes. His last chest x-ray was from 2023 demonstrating stable findings. Does have some hyperinflation. The patient denies any worsening of disease. At this point he has not x-ray pending has not have a yet. I did explain to him that if he is doing okay that he can always wait till the next follow-up to get the x-ray. Otherwise if he has any worsening respiratory symptoms he can always get the x-ray sooner and call me. No changes at this time. The patient is to refrain from smoking. He is working on that. Will plan to follow-up in a year if he has any issues prior to this he will call for an earlier assessment. [facility] Medical History (Updated 12/16/24 @ 20:32 by Isaak Cifuentes MD) Tobacco dependence Pulmonary nodules DVT (deep venous thrombosis) Pneumonia COPD (chronic obstructive pulmonary disease) Pre-op chest exam Social History Patient Tobacco Use Status: Current everyday Tobacco user Tobacco use type: Cigarette Cigarette Packs Per Day: 1 Cigarettes Per Day: 3 Years Smoked: 22 years old Review of Systems Const Denies night sweats and Denies weight loss ENT Denies change in voice, Denies lip swelling, Denies mouth pain, Reports nasal congestion, Reports nasal discharge and Denies tongue swelling Card Denies chest pain Resp Reports cough GI Denies abdominal pain Musc Denies no additional complaints Neuro Denies Neuro-related abnormal movements Psych Denies no additional complaints Abel/Lymph Denies easy bleeding and Denies lymphadenopathy Aller/Immun Denies lip swelling and Denies tongue swelling Physical Exam Vital Signs: Last Vital Signs Pulse 122 H 12/16/24 09:19 BP 104/56 L 12/16/24 09:19 Pulse Ox 97 12/16/24 09:19 Oxygen Delivery Method Room Air 12/16/24 09:19 BMI result Body Mass Index 18.4 Const General: alert Neck Neck: Yes normal visual inspection, Yes full ROM and Yes no lymphadenopathy Chest Chest palpation & inspection: normal inspection of the chest Resp Auscultation: diminished lung sounds Cardio Rate: tachycardic Rhythm: regular rhythm Heart sounds: S1 normal heart sound present and S2 normal heart sound present GI Palpation (GI): Soft to palpation and nontender Auscultation: normal bowel sounds Skin General skin exam: rashes and/or lesions noted Assessment & Plan Assessment & Plan (1) COPD (chronic obstructive pulmonary disease): Code(s): J44.9 - Chronic obstructive pulmonary disease, unspecified Category: Medical Qualifiers: COPD type: emphysema Emphysema type: centrilobular Qualified Code(s): J43.2 - Centrilobular emphysema (2) Pulmonary nodules: Code(s): R91.8 - Other nonspecific abnormal finding of lung field Category: Medical (3) Tobacco dependence: Code(s): F17.200 - Nicotine dependence, unspecified, uncomplicated Category: Medical Plan Duoneb as needed continue Stiolto 2 inhalations daily LUNA as needed Tobacco cessation CXR in 12 months follow-up in 12 months Orders: Orders XR chest 2V Today R91.8 - Other nonspecific abnormal finding of lung field Medications: Changed From tiotropium-olodaterol 2.5-2.5 mcg/actuation (Stiolto Respimat) 2 puffs inhalation DAILY 30 days 4 grams 11RF To tiotropium-olodaterol 2.5-2.5 mcg/actuation (Stiolto Respimat) 2 puffs inhalation DAILY 12 grams 11RF 90 days From albuterol sulfate 90 mcg/actuation (ProAir HFA) 2 puffs inhalation Q6H PRN 8.5 grams 11RF shortness of breath or wheezing To albuterol sulfate 90 mcg/actuation (ProAir HFA) 2 puffs inhalation Q6H PRN 8.5 grams 11RF shortness of breath or wheezing 30 days Coding Level of Care Code Est Pt Level 4 (75597) Complex EM visit Add On G2211 Diagnoses Centrilobular emphysema J43.2 COPD type: emphysema Emphysema type: centrilobular Pulmonary nodules R91.8 Tobacco dependence F17.200 Time Spent (min) 16
--- OUTSIDE RECORDS SUMMARY | 2024-12-16 11:32 | XMS_ITS | Clinical Summary ---
Author Organization [facility] [address] [place] [address] Address [address] [place] [address] Phone Care Team Providers Care Student Admissions Clerk Name Role Phone Carlos Barroso MD Primary Care Provider [phone] Allergies No known active allergies Medications tiotropium-olod [...] bedtime. at bedtime. 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 Shaffer Stage 3a chronic kidney disease ([place] V24, [facility] V28) 04/20/2021 Assessment & Plan (05/26/2024 9:14 AM EST): Orders: Thyroid stimulating hormone with reflex to free t4 and free t3; Future Acute deep vein thrombosis ( DVT) of distal vein of both lower extremities ([place] V24, [facility] V28) 08/22/2020 Overview (02/14/2024): Under the setting of recent hospitalization for nephro ureterectomy, involving right soleal vein and left peroneal vein below the knee and distal per vascu Aortic atherosclerosis ([place] V24) 08/20/2019 CAD (coronary artery disease) 08/20/2019 Assessment & Plan (05/26/2024 9:14 AM EST): Orders: Comprehensive metabolic panel; Future Lipid panel with reflex to direct LDL; Future Thyroid stimulating hormone with reflex to free t4 and free t3; Future PAD (peripheral artery disease) ([place] V24) Overview (02/14/2024): Sees [facility] vascular services Per office visit note April 2021 right ankle-brachial index 1.21; left ankle brachial index 0.80. Mild to moderate decreased arterial flow to ankles at rest Pre-diabetes 12/22/2016 Assessment & Plan (05/26/2024 9:14 AM EST): Orders: Hemoglobin A1c; Future Thyroid stimulating hormone with reflex to free t4 and free t3; Future Pulmonary nodules 12/22/2016 Chronic obstructive pulmonar y disease ([place] V24, [place] V28) 09/22/2014 Hyperlipidemia 05/07/2012 Assessment & Plan [...] Encounters Date Type Department Care Team Description 12/10/2024 8:30 AM EDT Office Visit Adult Medicine [address] [phone] Carlos Barroso MD Tachycardia (Primary Dx); Coronary artery disease involving eklutna coronary artery of e[place]na heart without angina pectoris; Malignant neoplasm of right ureter ([facility] V24, [facility] V28); Pre-diabetes; Stage 3a chronic kidney disease ([facility] V24, [facility] V28); Chronic obstructive pulmonary disease, unspecified COPD type ([facility] V24, [facility] V28) from Last 3 Months Immunizations Name Administration [...] Surgical History Surgery Date Site/Laterality Comments CHOLECYSTECTOMY 1970 PROCEDURE: HISTORICAL CHOLECYSTECTOMY OTHER SURGICAL HISTORY PROCEDURE: [...] sten osis PAD (peripheral artery disea se) ([place] V24) 02/05/2014 DX:PAD (peripheral artery di sease) ([facility]) Chronic obstructive pulmonar y disease ([place] V24, [place] V28) 09/22/2014 DX:Chronic obstructive pulm onary disease ([facility]) History of colonic polyps 02/10/2006 DX:His tory of colonic polyps; COMMENT: Negative colonoscopy 11/20/2013, no colon cancer screening needed for 10 years. Hyperlipidemia 05/07/2012 DX:Hyperlipidemi a Pre-diabetes 12/22/2016 DX:Pre-diabetes Pulmonary nodules 12/22/2016 DX:Pulmonary n odules Tobacco use 07/19/2005 DX:Tobacco use Aortic atherosclerosis ([place] V24) 08/20/2019 DX:Aortic atherosclerosis ([facility]) CAD (coronary artery disease) 08/20/2019 DX :CAD [...] attempted to quit: 2016 Smokeless Tobacco: Never Tobacco Cessation:Ready to Q uit: Not Asked; Counseling Given: Not Answered Alcohol Use Standard Drinks/Week Comments No 0 (1 standard drink = 0.6 oz pur e alcohol) Sex and Gender Information Value Date Recorded Sex Assigned at Not on file Legal Sex Male 4:43 AM EST Gender Identity Not on file Sexual Orientation Not on file Obstetrics History Last Filed Vital Signs Vital Sign Reading Time Taken Comments Blood Pressure 114/60 12/10/2024 8:18 AM EDT Pulse 121 12/10/2024 8:18 AM EDT Temperature 35.6 C (96.1 F) 12/10/2024 8:18 AM EDT Respiratory Rate 24 05/26/2024 8:56 AM EST Oxygen Saturation 99% 05/26/2024 8:56 AM EST Inhaled Oxygen Concentration - - Weight 43.1 kg (95 lb) 12/10/2024 8:18 AM EDT Height 160 cm (5' 3 ) 12/10/2024 8:18 AM EDT Body Mass Index 16.83 12/10/2024 8:18 AM EDT Plan of Treatment Upcoming Encounters Date Type Department Care Team (Late st Contact Info) Description 01/08/2025 8:30 AM EDT Office Visit Adult Medicine [facility] [place] [place] [address] [place], [place] [phone] Charan Lake NP [address] [place], [place] 01/22/2025 8:00 AM EDT Appointment [facility] Scan [address] [place] [phone] 03/12/2025 12:30 PM EST Ancillary Procedure [facility] - [address] [place] [phone] Health Maintenance Due Date Last Done Comments Medicare Annual Wellness Visit 03/11/2022 Social Influencers of Health Screening 03/11/2022 COVID-19 Vaccine ( season) 2024 03/05/2021, 06/26/2020, 05/29/2020 Influenza Vaccine (#1) 2024 , 12/21/2023, 04/02/2023, Additional history exists Falls Risk Assessment 05/26/2025 05/26/2024 Hypertension/CHF/CAD Annual BMP Blood Test 11/28/2025 11/28/2024, 11/05/2023, 11/05/2023 Cholesterol Screening (Lipid Panel) 11/28/2029 11/28/2024, 11/05/2023, 11/05/2023 DTaP,Tdap,and Td Vaccines (8 - Td or Tdap) 03/16/2030 03/16/2020, 05/07/2012, 08/22/2010, Additional history exists RSV Immunization Adult Patients Completed 05/23/2024 Depression Screening Completed 05/26/2024 Pneumococcal Vaccine: 50+ Years Completed 07/24/2024, 04/27/2015, 08/06/2014, Additional history exists Zoster Vaccines Completed 07/24/2024, 05/04, 08/13/2020, Additional history exists HIB Vaccines Aged Out [...] Procedure Name Priority Date/Time Associated Diagnosis Comments CBC WITH AUTO DIFFERENTIAL Routine 11/28/2024 8:07 AM EDT Cognitive impairment HEMOGLOBIN A1C Routine 11/28/2024 8:07 AM EDT Pre-diabetes COMPREHENSIVE METABOLIC PANEL Routine 11/28/2024 8:07 AM EDT Coronary artery disease involving eklutna coronary artery of e[place] heart without angina pectoris Cognitive impairment LIPID PANEL WITH REFLEX TO DIRECT LDL Routine 11/28/2024 8:07 AM EDT Coronary artery disease involving ekl[place]na coronary artery of [place] heart without angina pectoris Cognitive impairment CBC AND DIFFERENTIAL Routine 11/28/2024 8:07 AM EDT Cognitive impairment VITAMIN B12 AND FOLATE Routine 8:07 AM EDT Cognitive impairment THYROID STIMULATING HORMONE WITH REFLEX TO FREE T4 AND FREE T3 Routine 11/28/2024 8:07 AM EDT Pre-diabetes Coronary artery disease involving eklutna coronary artery of ekl[place] heart without angina pectoris Cognitive impairment Other hyperlipidemia Stage 3a chronic kidney disease ([facility] V24, [facility] V28) Routine general medical examination at a [facility] from Last 3 Months Results * Thyroid stimulating hormone with reflex to free t4 and free t3 (11/28/2024 8:07 AM EDT) TSH 1.31 0.40 - 4.00 mcIU/mL LAB CHEMISTRY METHOD 11/28/2024 11:42 AM EDT [facility] Blood Venous blood specimen / Unknown Venipuncture / Unknown 11/28/2024 8:07 AM EDT 11/28/2024 8:07 AM EDT us Carlos Barroso MD LAB BLOOD ORDERABLES Final Resul t [facility] [address] [place] [address], * (ABNORMAL) Vitamin B12 and folate (11/28/2024 8:07 AM EDT) Vitamin B-12 1,054(H) 250 - 900 pcg/mL LAB CHEMISTRY METHOD 11/28/2024 11:11 AM EDT [facility] Folate >20.0(H) 2.8 - 17.0 ng/ml LAB CHEMISTRY METHOD 11/28/2024 11:11 AM EDT [facility] Blood Venous blood specimen / Unknown Venipuncture / Unknown 11/28/2024 8:07 AM EDT 11/28/2024 8:07 AM EDT Carlos Barroso MD LAB BLOOD ORDERABLES Final Resul t [facility] [address] [place] [address], [place] [phone] * Lipid panel with reflex to direct LDL (11/28/2024 8:07 AM EDT) Cholesterol 160 0 - 200 mg/dL LAB CHEMISTRY METHOD 11/28/2024 11:11 AM EDT [facility] Triglycerides 75 0 - 150 mg/dL LAB CHEMISTRY METHOD [facility]/28[facility]2024 [facility] HDL 77 >=40 mg/dL LAB CHEMISTRY METHOD 11/28/2024 11:11 AM [facility] LDL Calculated 68 0 - 100 mg/dL LAB CHEMISTRY METHOD 11/28/2024 11:11 AM T [facility] Comment:Estimated LDL Calcul ated using equation: Total cholesterol - HDL cholesterol - (Triglycerides/5) VLDL Cholesterol Leno 15 mg/dL LAB CHEMISTRY METHOD 11/28/2024 11:11 AM [facility] Non HDL Chol. (LDL+VLDL) 83 <145 mg/dL LAB CHEMISTRY METHOD 11/28/2024 11:11 AM [facility] Chol/HDL Ratio 2.1 0.0 - 4.4 LAB CHEMISTRY METHOD 11/28/2024 11:11 AM [facility] Blood Venous blood specimen / Unknown Venipuncture / Unknown 11/28/2024 8:07 AM EDT 11/28/2024 8:07 AM EDT Carlos Barroso MD LAB BLOOD ORDERABLES Final Resul t [facility] [address] [place] [address], [place] [phone] * (ABNORMAL) CBC auto differential (11/28/2024 8:07 AM EDT) [facility] WBC 6.1 4.8 - 10.8 K/mcL LAB HEMETOLOGY METHOD 11/28/2024 10:22 AM [facility] RBC 4.20(L) 4.50 - 5.50 M/mcL LAB HEMETOLOGY METHOD 11/28/2024 10:22 AM [facility] Hemoglobin 13.2(L) 13.5 - 17.5 g/dL LAB HEMETOLOGY METHOD 11/28/2024 10:22 AM [facility] Hematocrit 40.4(L) 42.0 - 54.0 % LAB HEMETOLOGY METHOD 11/28/2024 10:22 AM [facility] MCV 96.9 79.0 - 98.0 FL LAB HEMETOLOGY METHOD 11/28/2024 10:22 AM [facility] MCH 31.7 27.0 - 32.0 pcg LAB HEMETOLOGY METHOD 11/28/2024 10:22 AM [facility] MCHC 32.7 32.0 - 37.0 g/dL LAB HEMETOLOGY METHOD 11/28/2024 10:22 AM [facility] RDW 13.3 11.0 - 15.0 % LAB HEMETOLOGY METHOD 11/28/2024 10:22 AM [facility] Platelets 256 130 - 400 K/mcL LAB HEMETOLOGY METHOD 11/28/2024 10:22 AM [facility] MPV 9.6 7.0 - 11.0 FL LAB HEMETOLOGY METHOD 11/28/2024 10:22 AM [facility] NRBC 0.0 <1.0 % LAB HEMETOLOGY METHOD 11/28/2024 10:22 AM [facility] NRBC Absolute 0.00 <0.10 K/mcL LAB HEMETOLOGY METHOD 11/28/2024 10:22 AM [facility] Neutrophils Relative 40.7 % LAB HEMETOLOGY METHOD 11/28/2024 10:22 AM [facility] Lymphocytes Relative 33.6 % LAB HEMETOLOGY METHOD 11/28/2024 10:22 AM [facility] Monocytes Relative 11.3 % LAB HEMETOLOGY METHOD 11/28/2024 10:22 AM [facility] Eosinophils Relative 12.8 % LAB HEMETOLOGY METHOD 11/28/2024 10:22 AM [facility] Basophils Relative 1.3 % LAB HEMETOLOGY METHOD 11/28/2024 10:22 AM [facility] Immature Granulocytes Relative 0.3 % LAB HEMETOLOGY METHOD 11/28/2024 10:22 AM [facility] Neutrophils Absolute 2.49 1.50 - 7.00 K/mcL LAB HEMETOLOGY METHOD 11/28/2024 10:22 AM [facility] Lymphocytes Absolute 2.05 1.00 - 5.00 K/mcL LAB HEMETOLOGY METHOD 11/28/2024 10:22 AM [facility] Monocytes Absolute 0.69 0.20 - 1.00 K/mcL LAB HEMETOLOGY METHOD 11/28/2024 10:22 AM [facility] Eosinophils Absolute 0.78(H) 0.00 - 0.50 K/mcL LAB HEMETOLOGY METHOD 11/28/2024 10:22 AM [facility] Basophils Absolute 0.08 0.00 - 0.20 K/mcL LAB HEMETOLOGY METHOD 11/28/2024 10:22 AM [facility] Immature Granulocytes Absolute 0.02 0.00 - 0.03 K/mcL LAB HEMETOLOGY METHOD 11/28/2024 10:22 AM EDT [facility] Blood Venous blood specimen / Unknown Venipuncture / Unknown 11/28/2024 8:07 AM EDT 11/28/2024 8:07 AM EDT Carlos Barroso MD LAB BLOOD ORDERABLES Final Resul t Performing Organization Address [facility]/ZIP Ar de Phone Number [facility] [address] [place] [address], [place] [phone] * Hemoglobin A1c (11/28/2024 8:07 AM EDT) Pathologist [facility] [place] Hemoglobin A1C 6.3 <6.5 % LAB CHEMISTRY METHOD 11/28/2024 1:40 PM EDT [facility] Mean Bld Glu Estim. 134 mg/dL LAB CHEMISTRY METHOD 11/28/2024 1:40 PM EDT [facility] Blood Venous blood specimen / Unknown Venipuncture / Unknown 11/28/2024 8:07 AM EDT 11/28/2024 8:07 AM EDT us Carlos Barroso MD LAB BLOOD ORDERABLES Final Resul t Performing Organization Address [facility] de Phone Number [facility] [address] [place] [address], [place] [phone] * (ABNORMAL) Comprehensive metabolic panel (11/28/2024 8:07 AM EDT) Pathologist [facility] [place] Sodium 139 133 - 145 mmol/L LAB CHEMISTRY METHOD 11/28/2024 11:11 AM EDT [facility] Potassium 4.8 3.5 - 5.5 mmol/L LAB CHEMISTRY METHOD 11/28/2024 11:11 AM EDT [facility] Chloride 105 96 - 110 mmol/L LAB CHEMISTRY METHOD 11/28/2024 11:11 AM EDT [facility] CO2 28 21 - 32 mmol/L LAB CHEMISTRY METHOD 11/28/2024 11:11 AM [facility] Anion Gap 6 3 - 11 LAB CHEMISTRY METHOD 11/28/2024 11:11 AM [facility] Glucose 130(H) 70 - 100 mg/dL LAB CHEMISTRY METHOD 11/28/2024 11:11 AM [facility] BUN 19 5 - 25 mg/dL LAB CHEMISTRY METHOD 11/28/2024 11:11 AM [facility] Creatinine 1.42(H) 0.70 - 1.30 mg/dL LAB CHEMISTRY METHOD 11/28/2024 11:11 AM [facility] eGFR 49(L) >=60 mL/min/1. 73m2 LAB CHEMISTRY METHOD 11/28/2024 11:11 AM [facility] Comment:Calculation based on the Chronic Kidney Disease Epidemiology Collaboration (CKD-EPI) equation refit without adjustment for race. BUN/Creatinine Ratio 13.4 LAB CHEMISTRY METHOD 11/28/2024 11:11 AM [facility] Calcium 9.2 8.5 - 10.5 mg/dL LAB CHEMISTRY METHOD 11/28/2024 11:11 AM [facility] AST (SGOT) 24 10 - 42 unit/L LAB CHEMISTRY METHOD 11/28/2024 11:11 AM [facility] ALT (SGPT) 23 10 - 60 unit/L LAB CHEMISTRY METHOD 11/28/2024 11:11 AM [facility] Alkaline Phosphatase 72 42 - 121 unit/L LAB CHEMISTRY METHOD 11/28/2024 11:11 AM [facility] Total Protein 6.9 6.0 - 8.0 g/dL LAB CHEMISTRY METHOD 11/28/2024 11:11 AM [facility] Albumin 3.9 3.2 - 5.0 g/dL LAB CHEMISTRY METHOD 11/28/2024 11:11 AM [facility] Total Bilirubin 0.5 0.0 - 1.4 mg/dL LAB CHEMISTRY METHOD 11/28/2024 11:11 AM EDT [facility] Blood Venous blood specimen / Unknown Venipuncture / Unknown 11/28/2024 8:07 AM EDT 11/28/2024 8:07 AM EDT Carlos Barroso MD LAB BLOOD ORDERABLES Final Resul t [facility] [address] [place] [address], [place] [phone] from Last 3 Months Insurance [employer] Care Teams Student Admissions Clerk Relationship Specialty Start Date End Date Carlos Barroso MD [address] [place] [phone] PCP - General Internal Medicine 11/26/15
--- OUTSIDE RECORDS SUMMARY | 2024-12-16 11:32 | XMS_ITS | Patient Health Record ---
Author Organization [facility] Address [address] [place] [phone] Care Team Providers Care Commercial Sewing Instructor Name Role Phone Kendrick Saxena Unavailable [phone] Reason For Referral No Information Plan Of Treatment No Information
--- OUTSIDE RECORDS SUMMARY | 2024-12-16 11:32 | XMS_ITS | Clinical Summary ---
Author Organization [facility] Address [address] [place] [address] Care Team Providers Care Catering Sous Chef Name Role Phone BarrosoCarlos Primary Care Provider [phone] Allergies Active Allergy Reactions Criticality Noted Date [...] 83 08/31/2020 11:17 AM EDT Temperature 36.6 C (97.9 F) 08/08/2020 11:25 AM EDT Respiratory Rate 18 08/08/2020 11:25 AM EDT [...] patients) (1 - 1-dose 75+ series) 08/26/2015 Alcohol/Substance Use Screening 04/02/2024 Health Care Proxy Review 04/02/2024 COVID-19 Vaccine (2 - 2024- season) 2024 06/26/2020 Influenza Vaccine (#1) 2024 0, 12/12/2019, 12/31/2018, Additional history exists DTaP,Tdap,and Td Vaccines (6 - Td or Tdap) 03/16/2030 03/16/2020, 05/07/2012, 08/22/2010, Additional history exists Pneumococcal Vaccine: 50+ Years Completed 04/27/2015, 08/06/2014, 04/27/2008 CT Lung Cancer Screening (12 months, previous LungRADS 1 or 2) Discontinued 07/31/2020 Hepatitis B Vaccines Aged Out No long er eligible based on patient's age to complete this topic Medical Devices Implanted Type Area Spa Technician Device Identifier Shelf Expiration Date Model / Serial / Lot Stent Ureteral Glidex Hydrophilic Coating 8fr 24cm Flexima - [id number] Implanted:Qty: 1 on 06/08/2020 by Matthew Vazquez MD at [facility] Stent Right: Ureter [employer] 05/15/2022 [id number] / / [id number] Stent Ureteral Firm Hydroplus Coating 8fr 26cm Percuflex Plus - [id number] Implanted:Qty: 1 on 06/09/2020 by Mireya Diaz MD at [facility] Stent Right: Ureter [employer] 03/08/2023 [id number] / / [id number] Description:Stent removed, n ot in implants, verified as complete by surgeon Procedures * Due to [place] TheraVid law, this organization might not be sharing negative HIV tests. Procedure Name Priority Date/Time Associated Diagnosis Comments CT CHEST WO CONTRAST STAT 07/31/2020 1:19 AM EDT from Last 3 Months or Most Recently Relevant to Health Maintenance Results * Due to [place] TheraVid law, this organization might not be sharing [...] section, it is an incomplete radiology report. Please contact the interpreting radiologist or applicable radiology division as soon as possible to obtain the completed interpretation. Workstation ID: [id number] Up-to-date CT equipment and radiation dose reduction techniques were employed. CTDIvol: 5.6 mGy. DLP: 193 mGy-cm. Narrative 07/31/2020 1:42 AM EDT COMPARISON: None. FINDINGS: LINES AND TUBES: None. AIRWAYS: There is filling defect within multiple lower lobe distal airways LUNGS:Extensive bilateral lower lobe consolidation is present. More groundglass and tree-in-bud nodules are seen in the dependent portions of the bilateral upper lobes. This is projection upon a background of moderate centrilobular emphysema PLEURA: Small to moderate bilateral pleural effusions are present. No pneumothorax. MEDIASTINUM: Small amount of pneumomediastinum is present. Heart size is not enlarged. No mediastinal adenopathy. No pericardial effusion. BONES/SOFT TISSUES: Extensive subcutaneous emphysema is seen tracking from the upper abdominal wall through the chest and lower neck. UPPER ABDOMEN: Although only partially imaged, small amount of pneumoperitoneum is present. Resulting Agency Comment [id number] Procedure Note Bryce Bazzi MD - 07/31/2020 [...] possible to obtain thecompleted interpretation. Workstation ID: [id number] Up-to-date CT equipment and radiation dose reduction techniques wereemployed. CTDIvol: 5.6 mGy. DLP: 193 mGy-cm. us Jose TORIBIO IMG CT PROCEDURES Final Resu lt from Last 3 Months or Most Recently Relevant to Health Maintenance Insurance 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
--- OUTSIDE RECORDS SUMMARY | 2024-12-16 11:32 | XMS_ITS | Patient Health Record ---
Author Organization [facility] Address [address] [place] [phone] Care Team Providers Care Zoogler Name Role Phone Chio HERRERA, Carlos Anderson Primary Care Provider Unav Stone Pittman Unavailable [phone] Reason For Referral No Information Plan Of Treatment No Information Insurance Providers Payer Name Payer Address Payer Phone Subscriber Number Group Number Insured Name Patient Relationship to Insured Coverage Start Date Coverage End Date [facility] [address] LAURA Philippe [phone] [id number] Yaya Epps Self - patient is the insured
--- OUTSIDE RECORDS SUMMARY | 2024-12-16 11:32 | XMS_ITS ---
Author Organization [facility] Address [address] [place] [address] Care Team Providers Care Master Dyer Name Role Phone Chio Carlos Primary Care Provider [phone] Active Problems Problem Noted Date Diagnosed Date [...]
== END 2024-12-16 09:40 | disposition home or self-care (01) ==
LOC: HO.HPS 09:13
PROVIDERS: PCP Internal Medicine; Visit Provider Hospitalist
DX: J43.2 Centrilobular emphysema (principal); R91.8 Other nonspecific abnormal finding of lung field; F17.200 Nicotine dependence, unspecified, uncomplicated
CPT/HCPCS: 99214; G2211

== ENCOUNTER → 2024-12-16 09:13 | Outpatient (BNVA) | payer MEDICARE, SELFPAY | PROVIDERS: PCP Internal Medicine; Visit Provider Hospitalist | DX: J43.2 Centrilobular emphysema (principal); R91.8 Other nonspecific abnormal finding of lung field; F17.200 Nicotine dependence, unspecified, uncomplicated | CPT/HCPCS: 99212 ==